=== PATIENT | male | born 1945 | race Caucasian/White ===

== ENCOUNTER 2018-11-01 03:53 | Inpatient (IN) | payer OTHER, BC ==
--- NOTE | 2018-11-01 04:27 | PDOC ---
Attending Attestation - Resident Resident Name: Susan Lang - HPI HPI: 11/12/18 06:19 [facility] from [facility] for one day of increased lethargy. Patient is vent dependent, non verbal and minimally responsive at his baseline. - Physicial Exam PE: 11/12/18 06:20 Agree with resident exam. Patient on vent, unresponsive to sternal rub. CV: tachycardic, no murmurs. Lungs: CTA b/l Abdomen: soft, non distended. 11/12/18 06:21 - Critical Care Time Total Critical Care Time: 30 Critical Care Statement: The care of this patient involved high complexity decision making to prevent further life threatening deterioration of the patient 's condition and/or to evaluate & treat vital organ system(s) failure or risk of failure. - Medical Decision Making 11/12/18 06:22 Pt presents to the ED after sent in from [place] for lethargy. Tachycardic on arrival to the ED with borderline hypotension. Found to be febrile rectally. Labs show severe anemia and leukocytosis. STarted on broad spectrum antibiotics. guiac postiive stool. Type and screen cross for two units ordered. Will admit to medicine for continued management. 11/12/18 06:25
[2018-11-01 05:08] LABS: EOS % 0.1 % (0-4.5); HEMATOCRIT 22.6 % (35.4-49); HEMOGLOBIN 7.1 GM/dL (11.7-16.9); MCH 26.5 pg (25.7-33.7); MCHC 31.5 g/dl (32.0-35.9); MEAN CELL VOLUME 84.2 fl (80-96); MEAN PLT VOLUME 8.4 fl (7.5-11.1); MONO % 2.3 % (3.8-10.2); NEUT % 95.6 % (42.8-82.8); PLATELET COUNT 460 K/MM3 (134-434); RBC 2.69 M/mm3 (4.00-5.60); RDW 19.7 % (11.9-15.9); WHITE BLOOD COUNT 18.7 K/mm3 (4.0-10.0)
[2018-11-01] MEDS ORDERED: PIPERACILLIN/TAZOB 4.5 GM 4.5 GM in DEXTROSE 5%-WATER 100 ML IVPB ONE (05:16)
[2018-11-01] MEDS ORDERED: VANCOMYCIN 1,000 MG in DEXTROSE 5%-WATER - 250 ML IVPB ONE (05:16)
[2018-11-01 05:18] LABS: VENOUS PC02 83.7 mmHg (38-52); VENOUS PH 7.21 (7.32-7.42)
[2018-11-01] MEDS ORDERED: PIPERACILLIN/TAZOB 4.5 GM 4.5 GM/100 ML BAG IVPB ONE (05:23)
[2018-11-01] MEDS ORDERED: VANCOMYCIN 1 GRAM (PRE-DOCKED) 1,000 MG/250 ML BAG IVPB ONE (05:23)
[2018-11-01] MEDS ORDERED: SODIUM CHLORIDE 1,500 ML IV STA (05:29)
[2018-11-01] MEDS ORDERED: ACETAMINOPHEN 1000 MG/100 ML VIAL (NON FORMULARY) IVPB ONE ×2 (05:30→18:26)
[2018-11-01 05:34] LABS: ALBUMIN 1.5 g/dl (3.4-5.0); ALK PHOS 191 U/L (45-117); ANION GAP 5 MMOL/L (8-16); BILIRUBIN,TOTAL 0.3 mg/dL (0.2-1); BLOOD UREA NITROGEN 59 mg/dL (7-18); CALCIUM 8.5 mg/dL (8.5-10.1); CHLORIDE 102 mmol/L (98-107); CO2 33 mmol/L (21-32); CREATININE 0.7 mg/dL (0.55-1.3); GLUCOSE,RANDOM 149 mg/dL (74-106); POTASSIUM 5.3 mmol/L (3.5-5.1); SGOT/AST 115 U/L (15-37); SGPT/ALT 141 U/L (13-61); SODIUM 140 mmol/L (136-145); TOT PROT 6.2 g/dl (6.4-8.2)
[2018-11-01 05:46] LABS: INR 2.03 (0.83-1.09); PROTHROMBIN TIME (PATIENT) 24.1 SEC (9.7-13.0)
[2018-11-01 05:49] LABS: ACTIVATED PTT 30.3 SECONDS (25.2-36.5)
--- NOTE | 2018-11-01 06:06 | PDOC ---
History of Present Illness - General Chief Complaint: Lethargy Stated Complaint: LETHARGY HYPOTENSION Time Seen by Provider: 11/01/18 04:27 - History of Present Illness Initial Comments: 73yo M with PMH of acute respiratory failure w/hypoxia s/p ventilator placement , PEG tube, Afib, anxiety disorder, GERD, Alzheimer's presenting from [facility] with lethargy and hypotension. Patient is nonverbal at baseline. Per [place], he will at most open his eyes to sternal rub. Hypotension of 95/55 noted. Past History - Past Medical History Allergies/Adverse Reactions: Allergies Allergy/AdvReac Type Severity Reaction Status Date / Time No Known Allergies Allergy Verified 11/01/18 04:12 Home Medications: Ambulatory Orders Acetaminophen [Tylenol -] 650 mg GT Q6H PRN 11/01/18 Albuterol 0.083% Nebulizer Lexus [Ventolin 0.083% Nebulizer Soln -] 1 neb NEB Q6H 11/01/18 Amiodarone HCl 200 mg GT DAILY 11/01/18 Apixaban [Eliquis] 5 mg GT BID 11/01/18 Aspirin 81 mg GT DAILY 11/01/18 Atorvastatin Ca [Lipitor] 40 mg GT HS 11/01/18 Butenafine HCl [Lotrimin Ultra] 30 gm TP BID 11/01/18 Butenafine HCl [Lotrimin Ultra] 30 gm TP BID 11/01/18 Clonazepam [Klonopin] 1 mg GT Q6H 11/01/18 Donepezil HCl [Aricept -] 10 mg GT HS 11/01/18 LORazepam [Ativan] 1 mg GT HS 11/01/18 Lansoprazole [Prevacid] 30 mg GT DAILY 11/01/18 Memantine HCl [Namenda -] 10 mg GT BID 11/01/18 Metoprolol Tartrate [Lopressor -] 12.5 mg GT Q12H 11/01/18 Peg 400/Hypromellose/Glycerin [Artificial Tears Drops] 15 ml OP BID 11/01/18 - Suicide/Smoking/Psychosocial Hx Smoking History: Unknown if ever smoked Have you smoked in the past 12 months: No Information on smoking cessation initiated: No Hx Alcohol Use: No Drug/Substance Use Hx: No Review of Systems - Review of Systems Able to Perform ROS?: No (pt nonverbal) *Physical Exam - Vital Signs Last Vital Signs Temp Pulse Resp BP Pulse Ox 98.8 F 85 21 H 101/66 100 11/01/18 03:53 11/01/18 03:53 11/01/18 03:57 11/01/18 03:53 11/01/18 03:53 - Physical Exam Comments: General: Arousable Head: No signs of trauma Eyes: PERRL, sclera anicteric ENT: Dry mucus membranes Neck: Normal ROM, supple Lungs: Lungs clear, on ventilator Cardio: Regular rhythm, S1 and S2 present Abdomen: Soft, nondistended. No visible grimacing upon palpation. PEG tube in place. Extremities: Distal pulses present SKIN: Warm, Dry, normal turgor Neurologic: Patient not following commands. Nonverbal Moderate Sedation - Procedure Monitoring Vital Signs: Procedure Monitoring Vital Signs Temperature 98.8 F 11/01/18 03:53 Pulse Rate 85 11/01/18 03:53 Respiratory Rate 21 H 11/01/18 03:57 Blood Pressure 101/66 11/01/18 03:53 O2 Sat by Pulse Oximetry (%) 100 11/01/18 03:53 ED Treatment Course - LABORATORY CBC & Chemistry Diagram: 11/01/18 04:55 11/01/18 04:55 - ADDITIONAL ORDERS Additional order review: Laboratory Results 11/01/18 11/01/18 11/01/18 04:55 04:55 04:55 PT with INR INR PTT (Actin FS) VBG pH POC VBG pCO2 POC VBG pO2 VBG HCO3 VBG O2 Sat (Libra) VBG Base Excess Sodium 140 Potassium 5.3 H Chloride 102 Carbon Dioxide 33 H Anion Gap 5 L BUN 59 H Creatinine 0.7 Creat Clearance w eGFR > 60 Random Glucose 149 H Lactic Acid 1.6 Calcium 8.5 Total Bilirubin 0.3 AST 115 H ALT 141 H Alkaline Phosphatase 191 H Troponin I < 0.02 Total Protein 6.2 L Albumin 1.5 L 11/01/18 11/01/18 04:55 04:55 PT with INR 24.10 H INR 2.03 H PTT (Actin FS) 30.3 VBG pH 7.21 L* POC VBG pCO2 83.7 H* POC VBG pO2 37.0 VBG HCO3 31.9 L* VBG O2 Sat (Libra) 53.4 H* VBG Base Excess 3.7 H Sodium Potassium Chloride Carbon Dioxide Anion Gap BUN Creatinine Creat Clearance w eGFR Random Glucose Lactic Acid Calcium Total Bilirubin AST ALT Alkaline Phosphatase Troponin I Total Protein Albumin 11/01/18 04:55 RBC 2.69 L MCV 84.2 MCHC 31.5 L RDW 19.7 H MPV 8.4 Neutrophils % 95.6 H Lymphocytes % 2.0 L Monocytes % 2.3 L Eosinophils % 0.1 Basophils % 0.0 Medical Decision Making - Medical Decision Making 73yo M with PMH of acute respiratory failure w/hypoxia s/p ventilator placement , PEG tube, Afib, anxiety disorder, GERD, Alzheimer's presenting from [facility] with lethargy and hypotension. VSS significant for fever and hypotension 1g ofirmev, fluid hydration with 30cc/kg Covering with vanc/zosyn Septic workup 11/01/18 06:35 Leukoctyosis, wbc=18.7 hgb= 7.1 lactate wnl transaminitis AST/ALT 115/141 Tpn negative EKG: rate 97, QTc 419, NSR CXR with left-sided haziness however no other images on record to compare (my impression) FOBT positive TS ordered 2 units PRBC ordered Plan for admission Patient is coming from [facility], paged Dr. Hernandez/Srinivasa service 11/01/18 06:52 Patient signed out to day team. 11/01/18 07:31 *DC/Admit/Observation/Transfer Diagnosis at time of Disposition: Sepsis Qualifiers: Sepsis type: sepsis due to unspecified organism Qualified Code(s): A41.9 - Sepsis, unspecified organism Anemia Qualifiers: Anemia type: unspecified type Qualified Code(s): D64.9 - Anemia, unspecified - Discharge Dispostion Condition at time of disposition: Fair - Referrals - Patient Instructions - Post Discharge Activity
[2018-11-01] MEDS ORDERED: ACETAMINOPHEN INJECTION 100 ML IVPB ONE ×2 (07:08→18:31)
[2018-11-01 07:24] LABS: ANISOCYTOSIS 1+
[2018-11-01 07:25] LABS: PLATELET ESTIMATE SLT INCREASE
[2018-11-01 07:33] LABS: ARTERIAL BLD GAS O2 SATURATION 99.5 % (90-98.9); ARTERIAL BLOOD GAS BASE EXCESS 4.5 meq/l (-2-2); ARTERIAL BLOOD GAS PCO2 59.2 mmHg (35-45); ARTERIAL BLOOD GAS pH 7.33 (7.35-7.45)
[2018-11-01 07:36] LABS: ALLENS TEST POSITIVE
--- NOTE | 2018-11-01 07:40 | PDOC ---
*Physical Exam - Vital Signs Last Vital Signs Temp Pulse Resp BP Pulse Ox 98.8 F 85 21 H 101/66 100 11/01/18 03:53 11/01/18 03:53 11/01/18 03:57 11/01/18 03:53 11/01/18 03:53 ED Treatment Course - LABORATORY CBC & Chemistry Diagram: 11/01/18 04:55 11/01/18 04:55 - ADDITIONAL ORDERS Additional order review: Laboratory Results 11/01/18 11/01/18 11/01/18 07:20 06:42 04:55 PT with INR INR PTT (Actin FS) Anticoagulation Therapy No Result Required. VBG pH POC VBG pCO2 POC VBG pO2 VBG HCO3 VBG O2 Sat (Libra) VBG Base Excess O2 Delivery Device No Result Required. Oxygen Flow Rate No Result Required. Vent Mode No Result Required. Vent Rate No Result Required. Mechanical Rate No Result Required. Pressure Support Vent No Result Required. Sodium Potassium Chloride Carbon Dioxide Anion Gap BUN Creatinine Creat Clearance w eGFR Random Glucose Lactic Acid Calcium Total Bilirubin AST ALT Alkaline Phosphatase Troponin I < 0.02 Total Protein Albumin Stool Occult Blood Positive 11/01/18 11/01/18 11/01/18 04:55 04:55 04:55 PT with INR INR PTT (Actin FS) Anticoagulation Therapy VBG pH 7.21 L* POC VBG pCO2 83.7 H* POC VBG pO2 37.0 VBG HCO3 31.9 L* VBG O2 Sat (Libra) 53.4 H* VBG Base Excess 3.7 H O2 Delivery Device Oxygen Flow Rate Vent Mode Vent Rate Mechanical Rate Pressure Support Vent Sodium 140 Potassium 5.3 H Chloride 102 Carbon Dioxide 33 H Anion Gap 5 L BUN 59 H Creatinine 0.7 Creat Clearance w eGFR > 60 Random Glucose 149 H Lactic Acid 1.6 Calcium 8.5 Total Bilirubin 0.3 AST 115 H ALT 141 H Alkaline Phosphatase 191 H Troponin I Total Protein 6.2 L Albumin 1.5 L Stool Occult Blood 11/01/18 04:55 PT with INR 24.10 H INR 2.03 H PTT (Actin FS) 30.3 Anticoagulation Therapy VBG pH POC VBG pCO2 POC VBG pO2 VBG HCO3 VBG O2 Sat (Libra) VBG Base Excess O2 Delivery Device Oxygen Flow Rate Vent Mode Vent Rate Mechanical Rate Pressure Support Vent Sodium Potassium Chloride Carbon Dioxide Anion Gap BUN Creatinine Creat Clearance w eGFR Random Glucose Lactic Acid Calcium Total Bilirubin AST ALT Alkaline Phosphatase Troponin I Total Protein Albumin Stool Occult Blood 11/01/18 04:55 RBC 2.69 L MCV 84.2 MCHC 31.5 L RDW 19.7 H MPV 8.4 Neutrophils % 95.6 H Lymphocytes % 2.0 L Monocytes % 2.3 L Eosinophils % 0.1 Basophils % 0.0 - Medications Given in the ED: ED Medications Discontinued Medications Generic Name Dose Route Start Last Admin Trade Name Alice PRN Reason Stop Dose Admin Vancomycin HCl 1,000 mg/ 250 mls @ 166.667 mls/hr 11/01/18 05:16 11/01/18 06: 20 Dextrose IVPB 11/01/18 06:45 166.667 mls/hr ONCE ONE Administration Protocol Piperacillin Sod/Tazobactam 100 mls @ 200 mls/hr 11/01/18 05:16 11/01/18 06: 20 Sod 4.5 gm/ Dextrose IVPB 11/01/18 05:45 200 mls/hr ONCE ONE Administration Protocol Medical Decision Making - Medical Decision Making 11/01/18 07:[address] Lang. Maurice Jha is a 73yo with a PMH of hypoxic respiratory failure s/p trach, s /p PEG, a-fib, Alzheimers, anxiety, GERD, minimally responsive at baseline ( opens eyes to sternal rub) who presents from [facility] with increased lethargy, fever, and hypotension. - ED workup notable for labs with WBC 19, normal lactate, hgb 7.1, mildly elevated LFTs, negative trop. Guaiac positive stool. EKG with NSR. Given 30cc/ kg IVF, vanc/zosyn/tamiflu. Protonix drip for GI bleed. - VBG with pH 7.21, CO2 84, bicarb 32, O2 53. ABG pending to adjust vent settings - Dr Bernabe paged at 06:52 for admission, waiting for call back 11/01/18 07:41 - ABG completed. pH 7.33, Os 162, CO2 59, bicarb 30.3 11/01/18 10:16 - Discussed admission with Dr Owen for admission - Call from blood bank; had 2u RBCs ordered for transfusion by overnight team, ready to transfuse Discussed with Dr Magaña. Debby Ernandez PGY1 *DC/Admit/Observation/Transfer Diagnosis at time of Disposition: Sepsis Qualifiers: Sepsis type: sepsis due to unspecified organism Qualified Code(s): A41.9 - Sepsis, unspecified organism Anemia Qualifiers: Anemia type: unspecified type Qualified Code(s): D64.9 - Anemia, unspecified - Discharge Dispostion Condition at time of disposition: Fair Decision to Admit order: Yes - Referrals Referrals: Leroy Schafer MD [Primary Care Provider] - - Patient Instructions - Post Discharge Activity
[2018-11-01] MEDS: PANTOPRAZOLE SODIUM 80 MG in SODIUM CHLORIDE 100 ML IVPB SCH ×3 (09:04→23:03)
[2018-11-01 09:45] LABS: URINE APPEARANCE SLCLOUDY; URINE BILIRUBIN NEGATIVE (<2.0 mg/dL); URINE COLOR YELLOW; URINE GLUCOSE (UA) NEGATIVE (NEGATIVE); URINE KETONE NEGATIVE (NEGATIVE); URINE LEUK ESTERASE NEGATIVE (NEGATIVE); URINE NITRITE NEGATIVE (NEGATIVE); URINE PROTEIN 1+ (NEGATIVE); URINE UROBILINOGEN 4.0 E.U/dl mg/dL (0.2-1.0)
--- NOTE | 2018-11-01 10:32 | EKG ---
Test Reason : Blood Pressure : / mmHG Vent. Rate : 097 BPM Atrial Rate : 097 BPM P-R Int : 158 ms QRS Dur : 086 ms QT Int : 330 ms P-R-T Axes : 013 014 052 degrees QTc Int : 419 ms NORMAL SINUS RHYTHM SEPTAL INFARCT , AGE UNDETERMINED ABNORMAL ECG NO PREVIOUS ECGS AVAILABLE Confirmed by MARILEE STILES MD ([id number]) on 11/01/2018 10:31:34 AM Referred By: Confirmed By:MARILEE STILES MD
[2018-11-01] MEDS ORDERED: ACETAMINOPHEN 650 MG/20.3 ML ORAL SOLUTION (CUPS) PO PRN (10:45)
--- NOTE | 2018-11-01 10:55 | HP ---
Admitting History and Physical - Primary Care Physician PCP: Leroy Schafer - Admission Chief Complaint: sent in for lethargy and hypotension from [facility] History of Present Illness: 73yo M with PMH of acute respiratory failure w/hypoxia s/p ventilator placement , PEG tube, Afib, anxiety disorder, GERD, Alzheimer's presenting from [facility] with lethargy and hypotension. Patient is nonverbal at baseline. Per [place], he will at most open his eyes to sternal rub. 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 Cardiovascular: Yes: AFIB Pulmonary: Yes: Other (resp failure intubated on vent) Gastrointestinal: Yes: GERD - Past Surgical History Additional Past Surgical History: peg and trach in 06/2018 - Advance Directives Advance Directives: Yes: DNR - Smoking History Smoking history: Unknown if ever smoked Have you smoked in the past 12 months: No - Alcohol/Substance Use Hx Alcohol Use: No Home Medications - Allergies Allergies/Adverse Reactions: Allergies Allergy/AdvReac Type Severity Reaction Status Date / Time No Known Allergies Allergy Verified 11/01/18 04:12 - Home Medications Home Medications: Ambulatory Orders Acetaminophen [Tylenol -] 650 mg GT Q6H PRN 11/01/18 Albuterol 0.083% Nebulizer Lexus [Ventolin 0.083% Nebulizer Soln -] 1 neb NEB Q6H 11/01/18 Amiodarone HCl 200 mg GT DAILY 11/01/18 Apixaban [Eliquis] 5 mg GT BID 11/01/18 Aspirin 81 mg GT DAILY 11/01/18 Atorvastatin Ca [Lipitor] 40 mg GT HS 11/01/18 Butenafine HCl [Lotrimin Ultra] 30 gm TP BID 11/01/18 Butenafine HCl [Lotrimin Ultra] 30 gm TP BID 11/01/18 Clonazepam [Klonopin] 1 mg GT Q6H 11/01/18 Donepezil HCl [Aricept -] 10 mg GT HS 11/01/18 LORazepam [Ativan] 1 mg GT HS 11/01/18 Lansoprazole [Prevacid] 30 mg GT DAILY 11/01/18 Memantine HCl [Namenda -] 10 mg GT BID 11/01/18 Metoprolol Tartrate [Lopressor -] 12.5 mg GT Q12H 11/01/18 Peg 400/Hypromellose/Glycerin [Artificial Tears Drops] 15 ml OP BID 11/01/18 Review of Systems Unable to obtain ROS, reason: lethargic unresponsive Physical Examination Vital Signs: Vital Signs Temperature 100.0 F H 11/01/18 07:50 Pulse Rate 86 11/01/18 09:39 Respiratory Rate 21 H 11/01/18 09:54 Blood Pressure 92/60 11/01/18 09:39 O2 Sat by Pulse Oximetry (%) 100 11/01/18 09:39 Constitutional: Yes: Thin Neck: Yes: Other (trach) Cardiovascular: Yes: Regular Rate and Rhythm, S1, S2 Respiratory: Yes: Diminished Gastrointestinal: Yes: Normal Bowel Sounds, Soft, Other ( g tube) Edema: Yes Neurological: Yes: Unresponsive Labs: CBC, BMP 11/01/18 04:55 11/01/18 04:55 Imaging - Results Chest X-ray: Report Reviewed (right upper lobe pna) Problem List - Problems (1) Anemia Assessment/Plan: guaicic positive iv ppi iron panel gi eval transfuse 2 units prbc with lasix in btw repeat cbc after transfusion hold tube feeds Code(s): D64.9 - ANEMIA, UNSPECIFIED Qualifiers: Anemia type: unspecified type Qualified Code(s): D64.9 - Anemia, unspecified (2) Sepsis Assessment/Plan: ivf broad abx ID eval cultures cxr with infiltrate- HCAP- zosyn/vancomycin Code(s): A41.9 - SEPSIS, UNSPECIFIED ORGANISM Qualifiers: Sepsis type: sepsis due to unspecified organism Qualified Code(s): A41.9 - Sepsis, unspecified organism (3) Abnormal LFTs Assessment/Plan: maybe secondary to hypotension check liver sono ivf Code(s): R94.5 - ABNORMAL RESULTS OF LIVER FUNCTION STUDIES (4) Afib Assessment/Plan: hold eliquis given guacic ppositive stool Code(s): I48.91 - UNSPECIFIED ATRIAL FIBRILLATION
[2018-11-01 12:39] LABS: BASO % 0.1 % (0-2.0); EOS % 0.4 % (0-4.5); HEMATOCRIT 20.5 % (35.4-49); LYMPH % 2.6 % (8-40); MCH 26.3 pg (25.7-33.7); MCHC 31.2 g/dl (32.0-35.9); MEAN CELL VOLUME 84.4 fl (80-96); MEAN PLT VOLUME 8.3 fl (7.5-11.1); MONO % 3.3 % (3.8-10.2); NEUT % 93.6 % (42.8-82.8); PLATELET COUNT 389 K/MM3 (134-434); RBC 2.43 M/mm3 (4.00-5.60); RDW 19.8 % (11.9-15.9); WHITE BLOOD COUNT 14.6 K/mm3 (4.0-10.0)
[2018-11-01 12:46] LABS: HEMOGLOBIN 6.4 GM/dL (11.7-16.9)
[2018-11-01 13:05] LABS: ALBUMIN 1.3 g/dl (3.4-5.0); ALK PHOS 161 U/L (45-117); ANION GAP 4 MMOL/L (8-16); BILIRUBIN,TOTAL 0.3 mg/dL (0.2-1); BLOOD UREA NITROGEN 58 mg/dL (7-18); CALCIUM 7.8 mg/dL (8.5-10.1); CHLORIDE 107 mmol/L (98-107); CO2 31 mmol/L (21-32); CREATININE 0.6 mg/dL (0.55-1.3); GLUCOSE,RANDOM 112 mg/dL (74-106); POTASSIUM 5.2 mmol/L (3.5-5.1); SGOT/AST 80 U/L (15-37); SGPT/ALT 114 U/L (13-61); SODIUM 141 mmol/L (136-145); TOT PROT 5.3 g/dl (6.4-8.2)
[2018-11-01 13:26] LABS: AMORP URATES 2+ /hpf (NONE SEEN); EPI CELLS NONE SEEN /HPF (FEW)
--- NOTE | 2018-11-01 13:35 | CON.PULM ---
Consult Consult Specialty:: PULMONARY Referred by:: Dr Tripathi Reason for Consultation:: respiratory failure - History of Present Illness Chief Complaint: hypoxia History of Present Illness: 73yo male with h/o atrial fibrillation, chronic respiratory failure s/p tracheostomy/PEG placement, Alzheimer's dementia, GERD who was sent from the [facility] for lethargy and hypotension. Pt unable to provide further history at this time. Noted to be hypoxic on 40% FiO2 and hypotensive. CXR showing bilateral infiltrates, started on IVF and antibiotics for presumed pneumonia. Now on 100% FiO2 on volume assist control. 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 Cardio/Vascular: Yes: AFIB Pulmonary: Yes: Other (resp failure intubated on vent) Gastrointestinal: Yes: GERD - Alcohol/Substance Use Hx Alcohol Use: No - Smoking History Smoking history: Unknown if ever smoked Have you smoked in the past 12 months: No Home Medications - Allergies Allergies/Adverse Reactions: Allergies Allergy/AdvReac Type Severity Reaction Status Date / Time No Known Allergies Allergy Verified 11/01/18 04:12 - Home Medications Home Medications: Ambulatory Orders Acetaminophen [Tylenol -] 650 mg GT Q6H PRN 11/01/18 Albuterol 0.083% Nebulizer Lexus [Ventolin 0.083% Nebulizer Soln -] 1 neb NEB Q6H 11/01/18 Amiodarone HCl 200 mg GT DAILY 11/01/18 Apixaban [Eliquis] 5 mg GT BID 11/01/18 Aspirin 81 mg GT DAILY 11/01/18 Atorvastatin Ca [Lipitor] 40 mg GT HS 11/01/18 Butenafine HCl [Lotrimin Ultra] 30 gm TP BID 11/01/18 Butenafine HCl [Lotrimin Ultra] 30 gm TP BID 11/01/18 Clonazepam [Klonopin] 1 mg GT Q6H 11/01/18 Donepezil HCl [Aricept -] 10 mg GT HS 11/01/18 LORazepam [Ativan] 1 mg GT HS 11/01/18 Lansoprazole [Prevacid] 30 mg GT DAILY 11/01/18 Memantine HCl [Namenda -] 10 mg GT BID 11/01/18 Metoprolol Tartrate [Lopressor -] 12.5 mg GT Q12H 11/01/18 Peg 400/Hypromellose/Glycerin [Artificial Tears Drops] 15 ml OP BID 11/01/18 Review of Systems Unable to obtain ROS, reason: pt nonverbal Physical Exam Vital Sings: Vital Signs Temperature 100.0 F H 11/01/18 07:50 Pulse Rate 86 11/01/18 09:39 Respiratory Rate 21 H 11/01/18 09:54 Blood Pressure 92/60 11/01/18 09:39 O2 Sat by Pulse Oximetry (%) 100 11/01/18 09:39 Constitutional: Yes: Cachectic, Moderate Distress Eyes: Yes: Conjunctiva Clear HENT: Yes: Atraumatic, Normocephalic Neck: Yes: Supple, Trachea Midline Cardiovascular: Yes: Pulse Irregular Respiratory: Yes: Rhonchi (bilateral) ...Clubbing: No Gastrointestinal: Yes: Normal Bowel Sounds, Soft. No: Tenderness Edema: No Labs: CBC, BMP 11/01/18 12:05 11/01/18 12:05 ABG Results ABG pH 7.33 (7.35-7.45) L 11/01/18 07:20 ABG pCO2 at Pt Temp 59.2 mmHg (35-45) H 11/01/18 07:20 ABG pO2 at Pt Temp 162.0 mmHg (70-100) H* 11/01/18 07:20 ABG HCO3 30.3 meq/L (22-26) H 11/01/18 07:20 ABG O2 Sat (Measured) 99.5 % (90-98.9) H 11/01/18 07:20 ABG O2 Content 9.1 % vol (15-22) L* 11/01/18 07:20 ABG Base Excess 4.5 meq/l (-2-2) H 11/01/18 07:20 Imaging - Results Chest X-ray: Report Reviewed, Image Reviewed (bilateral infiltrates) Problem List - Problems (1) Acute and chronic respiratory failure with hypoxia Code(s): J96.21 - ACUTE AND CHRONIC RESPIRATORY FAILURE WITH HYPOXIA (2) Pneumonia Code(s): J18.9 - PNEUMONIA, UNSPECIFIED ORGANISM Assessment/Plan Acute on Chronic Hypoxic and Hypercapneic Respiratory Failure Multilobar Pneumonia Sepsis Elevated LFTs Atrial Fibrillation Anemia r/o GI Bleed Dementia Failure to Thrive - IV antibiotics to cover health care acquired organisms - f/u cultures - inhaled bronchodilators - O2 to keep SpO2 >90% - transfuse PRBC - monitor H/H - protonix - IVF - GI eval - rate control - hold anticoagulation for now - continue volume assist control - DVT/GI prophylaxis - prognosis guarded Thank you for this consult Mihir Alonzo MD
--- NOTE | 2018-11-01 14:22 | PN ---
Progress Note (short form) - Note Progress Note: ID consult dictated imp/reccd 73 yo man with chronic resp failure worsening hypoxia multilobar pneumonia abnormal LFTs anemia dementia continue vanco/zosyn sputum culture urinary antigens f/u cultures GI consult for anemia overall prognosis is guarded Problem List - Problems (1) Acute and chronic respiratory failure with hypoxia Code(s): J96.21 - ACUTE AND CHRONIC RESPIRATORY FAILURE WITH HYPOXIA (2) Pneumonia Code(s): J18.9 - PNEUMONIA, UNSPECIFIED ORGANISM (3) Anemia Code(s): D64.9 - ANEMIA, UNSPECIFIED Qualifiers: Anemia type: unspecified type Qualified Code(s): D64.9 - Anemia, unspecified (4) Abnormal LFTs Code(s): R94.5 - ABNORMAL RESULTS OF LIVER FUNCTION STUDIES
[2018-11-01] MEDS ORDERED: ALBUTEROL SO4 2.5/IPRATROPIUM 0.5 INH SOL 3 ML VIAL.NEB. NEB ONE (15:57)
[2018-11-01] MEDS: ALBUTEROL SO4 2.5/IPRATROPIUM 0.5 INH SOL 3 ML VIAL.NEB. NEB SCH ×2 (16:00→21:30)
--- NOTE | 2018-11-01 18:01 | CONS ---
DATE OF CONSULTATION: DATE OF DICTATION: 11/01/2018 INFECTIOUS DISEASE CONSULTATION REQUESTING PHYSICIAN: The hospitalist CONSULTING PHYSICIAN: Jj Joy M.D. HISTORY OF PRESENT ILLNESS: This is a 73-year-old man with a history of chronic respiratory failure. He has a tracheostomy and was on a ventilator and chronic PEG tube, atrial fibrillation, and dementia, who presents from the shelter with lethargy and hypotension. In the emergency room, he was noted to have a low- grade fever, to have an elevated white count, and to be hypoxic. He had a chest x- ray done that revealed a right upper lobe infiltrate and a possible left basilar infiltrate with an accompanying effusion. He had cultures done and was started on broad-spectrum antibiotics, vancomycin, and piperacillin/tazobactam for presumed pneumonia. His history is entirely from the chart, as he is not verbal. He is apparently at baseline nonverbal, and apparently he is able to open his eyes to sternal rub, but otherwise he is not interactive. PAST MEDICAL HISTORY: Notable for dementia, Alzheimer dementia, atrial fibrillation, chronic respiratory failure with hypoxia, tracheostomized on the vent, history of GERD. SOCIAL HISTORY: Notable for G-tube and tracheostomy in June of 2018. ALLERGIES: No known drug allergies. MEDICATION: At the shelter include acetaminophen, Ventolin, nebulizer treatment, amiodarone, apixaban, aspirin, atorvastatin, Lotrimin cream, clonazepam, Aricept, Ativan, Prevacid, Namenda, Lopressor, and artificial tears. REVIEW OF SYSTEMS: Not obtainable. SOCIAL HISTORY: He resides at the shelter. Further history is not obtainable. PHYSICAL EXAMINATION: GENERAL: He is resting comfortably on the vent. VITAL SIGNS: T-max is 100, pulse is 86, blood pressure 92/60, respiratory rate 20. He is saturating 100% on 100% FiO2. HEENT: Normocephalic. Eyes are anicteric. He is tracheostomized. He is unresponsive, and not following any commands. LUNGS: Diminished breath sounds at the bases. HEART: Regular rate and rhythm. ABDOMEN: Soft. His G-tube site is clean. EXTREMITIES: Without edema. LABORATORY: Labs on admission, white count 18.7, hemoglobin 7.1, platelets 460 this morning, white count 14.6 from earlier this morning with a hemoglobin of 6.4 and platelets at 389. INR is 2. His BUN and creatinine are 58 and 0.6. Liver function tests are elevated with an AST of 115, ALT of 141, and alkaline phosphatase of 191. Urinalysis is leukocyte esterase negative, with 1-3 white cells. The stool occult blood is positive. Blood and urine cultures are pending. Chest x-ray as stated before shows a right upper lobe infiltrate with a left pleural effusion and left basilar infiltrate. IMPRESSION: 1. In summary, this is an elderly man aged 73 admitted from the shelter, he has a history of dementia and chronic respiratory failure. He is on the ventilator tracheostomy with acute episode of lethargy and hypotension. Chest x-ray consistent with pneumonia. Would suggest at this time we obtain blood cultures, have been sent. Would get a sputum culture, legionella urinary antigen. Would continue his vancomycin and Zosyn pending further culture results. 2. Acute on chronic respiratory failure. 3. Elevated liver function tests, would agree with ultrasound. 4. History of atrial fibrillation. 5. Anemia, unknown if this is old or new. Workup is in progress. 6. History of dementia with a poor baseline mental status. Further recommendations to follow. Would continue the vancomycin and Zosyn for now. JJ JOY M.D. [id number] MTDD
--- NOTE | 2018-11-01 18:06 | CON.GI ---
Consult Consult Specialty:: GI Referred by:: Dr Hernandez - History of Present Illness History of Present Illness: 73 y/o M from [facility] with history of Respiratory failure, Afib ( on Aspirin and Eliquis)was transferred from [place] because of hypotnesion and change in mental status. He was noted to have leukocytosis and a hemoglobin of 6. He is guaiac positive. There were no reports of melena and rectal bleeding. - Past Medical History DIRECTOR OF OPERATIONS: Yes: Alzheimer's Cardio/Vascular: Yes: AFIB Pulmonary: Yes: Other (resp failure intubated on vent) Gastrointestinal: Yes: GERD - Alcohol/Substance Use Hx Alcohol Use: No - Smoking History Smoking history: Unknown if ever smoked Have you smoked in the past 12 months: No Home Medications - Allergies Allergies/Adverse Reactions: Allergies Allergy/AdvReac Type Severity Reaction Status Date / Time No Known Allergies Allergy Verified 11/01/18 04:12 - Home Medications Home Medications: Ambulatory Orders Acetaminophen [Tylenol -] 650 mg GT Q6H PRN 11/01/18 Albuterol 0.083% Nebulizer Lexus [Ventolin 0.083% Nebulizer Soln -] 1 neb NEB Q6H 11/01/18 Amiodarone HCl 200 mg GT DAILY 11/01/18 Apixaban [Eliquis] 5 mg GT BID 11/01/18 Aspirin 81 mg GT DAILY 11/01/18 Atorvastatin Ca [Lipitor] 40 mg GT HS 11/01/18 Butenafine HCl [Lotrimin Ultra] 30 gm TP BID 11/01/18 Butenafine HCl [Lotrimin Ultra] 30 gm TP BID 11/01/18 Clonazepam [Klonopin] 1 mg GT Q6H 11/01/18 Donepezil HCl [Aricept -] 10 mg GT HS 11/01/18 LORazepam [Ativan] 1 mg GT HS 11/01/18 Lansoprazole [Prevacid] 30 mg GT DAILY 11/01/18 Memantine HCl [Namenda -] 10 mg GT BID 11/01/18 Metoprolol Tartrate [Lopressor -] 12.5 mg GT Q12H 11/01/18 Peg 400/Hypromellose/Glycerin [Artificial Tears Drops] 15 ml OP BID 11/01/18 Physical Exam-GI Vital Signs: Vital Signs Temperature 102 F H 11/01/18 17:26 Pulse Rate 93 H 11/01/18 17:26 Respiratory Rate 20 11/01/18 17:26 Blood Pressure 102/63 11/01/18 17:26 O2 Sat by Pulse Oximetry (%) 100 11/01/18 17:26 Constitutional: Yes: Well Nourished Eyes: Yes: Conjunctiva Clear, Occular Prosthesis Neck: Yes: Supple Respiratory: Yes: Rhonchi Gastrointestinal Inspection: Yes: Other (g-tube in place) ...Palpate: Yes: Soft. No: Firm/Rigid, Guarding, Hepatomegaly, Mass, Pulsatile Mass, Splenomegaly Neurological: Yes: Other (obtunded). No: Alert, Oriented Labs: CBC, BMP 11/01/18 12:05 11/01/18 12:05 INR, PTT INR 2.03 (0.83-1.09) H 11/01/18 04:55 Home Medications Medication Instructions Recorded Acetaminophen [Tylenol -] 650 mg GT Q6H PRN 11/01/18 Albuterol 0.083% Nebulizer Lexus 1 neb NEB Q6H 11/01/18 [Ventolin 0.083% Nebulizer Soln -] Amiodarone HCl 200 mg GT DAILY 11/01/18 Apixaban [Eliquis] 5 mg GT BID 11/01/18 Aspirin 81 mg GT DAILY 11/01/18 Atorvastatin Ca [Lipitor] 40 mg GT HS 11/01/18 Butenafine HCl [Lotrimin Ultra] 30 gm TP BID 11/01/18 Butenafine HCl [Lotrimin Ultra] 30 gm TP BID 11/01/18 Clonazepam [Klonopin] 1 mg GT Q6H 11/01/18 Donepezil HCl [Aricept -] 10 mg GT HS 11/01/18 LORazepam [Ativan] 1 mg GT HS 11/01/18 Lansoprazole [Prevacid] 30 mg GT DAILY 11/01/18 Memantine HCl [Namenda -] 10 mg GT BID 11/01/18 Metoprolol Tartrate [Lopressor -] 12.5 mg GT Q12H 11/01/18 Peg 400/Hypromellose/Glycerin 15 ml OP BID 11/01/18 [Artificial Tears Drops] Current Medications Generic Name Dose Route Start Last Admin Trade Name Freq PRN Reason Stop Dose Admin Albuterol/Ipratropium 1 amp 11/01/18 16:00 11/01/18 16:00 Duoneb - NEB 1 amp RQID FLORY Administration Pantoprazole Sodium 80 mg/ 100 mls @ 10 mls/hr 11/01/18 07:00 11/01/18 17:11 Sodium Chloride IVPB 10 mls/hr Q10H FLORY Administration 8 MG/HR Piperacillin Sod/Tazobactam 50 mls @ 100 mls/hr 11/01/18 18:00 Sod 3.375 gm/ Dextrose IVPB Q8H-IV FLORY Protocol Vancomycin HCl 1,000 mg/ 250 mls @ 200 mls/hr 11/02/18 10:00 Dextrose IVPB Q24H FLORY Protocol Hepatic Panel Total Bilirubin 0.3 mg/dL (0.2-1) 11/01/18 12:05 AST 80 U/L (15-37) H 11/01/18 12:05 ALT 114 U/L (13-61) H 11/01/18 12:05 Alkaline Phosphatase 161 U/L (45-117) H 11/01/18 12:05 Albumin 1.3 g/dl (3.4-5.0) L 11/01/18 12:05 Problem List - Problems (1) Anemia Code(s): D64.9 - ANEMIA, UNSPECIFIED Qualifiers: Anemia type: unspecified type Qualified Code(s): D64.9 - Anemia, unspecified (2) Elevated liver enzymes Assessment/Plan: multifactorial including secondary to medication( lipitor and Amiodarone ) R> keep well hydrated repeat LFTS in 48 hours Code(s): R74.8 - ABNORMAL LEVELS OF OTHER SERUM ENZYMES (3) Anemia Assessment/Plan: , occult gi bleeding R> keep HGB greater than 8 continue PPI poor candidate for any GI intervention at this time continu supportive care Code(s): D64.9 - ANEMIA, UNSPECIFIED
[2018-11-01] MEDS ORDERED: PIPERACILLIN/TAZOB 3.375 GM 3.375 GM/50 ML BAG IVPB ONE (18:52)
[2018-11-01] MEDS: PIPERACILLIN/TAZOB 3.375 GM 3.375 GM in DEXTROSE 5%-WATER - 50 ML IVPB SCH (18:54)
[2018-11-01 20:43] LABS: PLATELET ESTIMATE ADEQUATE
[2018-11-01 20:44] LABS: ANISOCYTOSIS 1+
[2018-11-02 00:12] LABS: HEMATOCRIT 26.4 % (35.4-49); HEMOGLOBIN 8.8 GM/dL (11.7-16.9); MCH 28.7 pg (25.7-33.7); MCHC 33.4 g/dl (32.0-35.9); MEAN PLT VOLUME 8.3 fl (7.5-11.1); PLATELET COUNT 354 K/MM3 (134-434); RBC 3.07 M/mm3 (4.00-5.60); RDW 17.7 % (11.9-15.9); WHITE BLOOD COUNT 15.4 K/mm3 (4.0-10.0)
[2018-11-02] MEDS ORDERED: PIPERACILLIN/TAZOBACTAM 3.375 GM VIAL IVPB ONE ×2 (00:51→10:27)
[2018-11-02] MEDS ORDERED: DEXTROSE 5%-WATER - 50 ML IVPB ONE ×2 (00:51→10:27)
[2018-11-02] MEDS: PIPERACILLIN/TAZOB 3.375 GM 3.375 GM in DEXTROSE 5%-WATER - 50 ML IVPB SCH ×2 (01:40→10:36)
[2018-11-02] MEDS: PANTOPRAZOLE SODIUM 80 MG in SODIUM CHLORIDE 100 ML IVPB SCH ×3 (07:05→23:11)
[2018-11-02 07:51] LABS: HEMATOCRIT 24.6 % (35.4-49); HEMOGLOBIN 8.2 GM/dL (11.7-16.9); MCH 28.2 pg (25.7-33.7); MCHC 33.4 g/dl (32.0-35.9); MEAN CELL VOLUME 84.6 fl (80-96); MEAN PLT VOLUME 8.6 fl (7.5-11.1); PLATELET COUNT 353 K/MM3 (134-434); RDW 17.7 % (11.9-15.9); WHITE BLOOD COUNT 15.4 K/mm3 (4.0-10.0)
--- NOTE | 2018-11-02 07:52 | PN ---
GI Progress Note Subjective: Patient examined lying in bed. Patient is non-verbal and ventilator dependent. As per RN no reports of BM during the night, rectal bleeding, nausea, vomiting. Patient labs show improved Hg from 6.4 to 8.8 s/p 2U PRBC transfusion. LFTs improving showing downtrend with current AST 80, ALT 114, Alk Phos 161. - Objective Vital Signs: Vital Signs Temperature 100.7 F H 11/02/18 06:00 Pulse Rate 107 H 11/02/18 06:00 Respiratory Rate 24 H 11/02/18 06:14 Blood Pressure 101/46 L 11/02/18 06:00 O2 Sat by Pulse Oximetry (%) 99 11/01/18 21:00 Constitutional: Mild Distress Eyes: Yes: Conjunctiva Clear HENT: Yes: Atraumatic Cardiovascular: Yes: Tachycardia Respiratory: Yes: Mechanically Ventilated, Rhonchi Gastrointestinal Inspection: Yes: Other (PEG tube). No: WNL, Ascites, Distention, Hernia, Scars ...Auscultate: Yes: Normoactive Bowel Sounds. No: Hyperactive Bowel Sounds, Hypoactive Bowel Sounds, No Bowel Sounds, Other ...Palpate: Yes: Soft. No: Firm/Rigid, Guarding, Hepatomegaly, Mass, Pulsatile Mass, Splenomegaly, Tenderness, Tenderness, Epigastium, Tenderness, Rebound, Other ...Percussion: Yes: Tympanitic. No: Dullness, Fluid Wave, Other Genitourinary: Yes: Krishnamurthy Present Neurological: Yes: Pre-Existing Deficit Labs: INR, PTT INR 2.03 (0.83-1.09) H 11/01/18 04:55 Microbiology 11/01/18 04:55 Blood Culture - Preliminary Blood - Peripheral Venous NO GROWTH OBTAINED AFTER 24 HOURS, INCUBATION TO CONTINUE FOR 4 DAYS. 11/01/18 04:55 Blood Culture - Preliminary Blood - Peripheral Venous NO GROWTH OBTAINED AFTER 24 HOURS, INCUBATION TO CONTINUE FOR 4 DAYS Active Medications Generic Name Dose Route Start Last Admin Trade Name Freq PRN Reason Stop Dose Admin Albuterol/Ipratropium 1 amp 11/01/18 16:00 11/01/18 21:30 Duoneb - NEB 1 amp RQID FLORY Administration Pantoprazole Sodium 80 mg/ 100 mls @ 10 mls/hr 11/01/18 07:00 11/02/18 07:05 Sodium Chloride IVPB Not Given Q10H FLORY 8 MG/HR Piperacillin Sod/Tazobactam 50 mls @ 100 mls/hr 11/01/18 18:00 11/02/18 01:40 Sod 3.375 gm/ Dextrose IVPB 100 mls/hr Q8H-IV FLORY Administration Protocol Vancomycin HCl 1,000 mg/ 250 mls @ 200 mls/hr 11/02/18 10:00 Dextrose IVPB Q24H FLORY Protocol Problem List - Problems (1) Anemia Assessment/Plan: R>daily monitoring of Hg >transfuse when Hg <8.0 >continue with PPI >stool OB positive--poor candidate for GI intervention at present Code(s): D64.9 - ANEMIA, UNSPECIFIED Qualifiers: Anemia type: unspecified type Qualified Code(s): D64.9 - Anemia, unspecified (2) Elevated liver enzymes Assessment/Plan: multifactorial including secondary to medication( lipitor and Amiodarone ) R> keep well hydrated LFTs showing downtrend, continue to monitor Code(s): R74.8 - ABNORMAL LEVELS OF OTHER SERUM ENZYMES (3) Anemia Assessment/Plan: , occult gi bleeding R>monitor Hg and transfuse if Hg <8.0 continue PPI poor candidate for any GI intervention at this time continue supportive care Code(s): D64.9 - ANEMIA, UNSPECIFIED
[2018-11-02 08:18] LABS: ALBUMIN 1.3 g/dl (3.4-5.0); ALK PHOS 140 U/L (45-117); ANION GAP 5 MMOL/L (8-16); BILIRUBIN,TOTAL 0.5 mg/dL (0.2-1); BLOOD UREA NITROGEN 55 mg/dL (7-18); CALCIUM 7.7 mg/dL (8.5-10.1); CHLORIDE 109 mmol/L (98-107); CO2 29 mmol/L (21-32); CREATININE 0.6 mg/dL (0.55-1.3); GLUCOSE,RANDOM 67 mg/dL (74-106); MAGNESIUM 2.7 mg/dL (1.8-2.4); PHOSPHOROUS 3.5 mg/dL (2.5-4.9); POTASSIUM 5.1 mmol/L (3.5-5.1); SGOT/AST 77 U/L (15-37); SGPT/ALT 108 U/L (13-61); SODIUM 143 mmol/L (136-145); TOT PROT 5.4 g/dl (6.4-8.2)
[2018-11-02] MEDS: ALBUTEROL SO4 2.5/IPRATROPIUM 0.5 INH SOL 3 ML VIAL.NEB. NEB SCH ×4 (08:51→20:02)
[2018-11-02 09:37] LABS: CHOLESTEROL 72 mg/dL (50-200); HDL CHOLESTEROL 15 mg/dL (40-60); TRIGLYCERIDES 83 mg/dL (0-150)
[2018-11-02] MEDS ORDERED: VANCOMYCIN 1,000 MG in DEXTROSE 5%-WATER - 250 ML IVPB SCH (10:00)
--- NOTE | 2018-11-02 10:59 | PN ---
Progress Note (short form) - Note Progress Note: PULMONARY Vented on volume assist control. Low grade fever today. Saturating well on 80% FiO2. Vital Signs Period Temp Pulse Resp BP Sys/Jesus Pulse Ox Last 24 Hr 98 F-102 F 82-107 20-24 86-107/45-63 99-100 Gen: vented, mildly tachypneic, cachectic Heart: RRR Lung: scattered rhonchi Abd: soft, nontender Ext: no edema CBC, BMP 11/02/18 05:40 11/02/18 05:40 Active Medications Albuterol/Ipratropium (Duoneb -) 1 amp NEB RQID FLORY Last Admin: 11/02/18 08:51 Dose: 1 amp Pantoprazole Sodium 80 mg/ (Sodium Chloride) 100 mls @ 10 mls/hr IVPB Q10H FLORY Last Admin: 11/02/18 07:05 Dose: Not Given Piperacillin Sod/Tazobactam (Sod 3.375 gm/ Dextrose) 50 mls @ 100 mls/hr IVPB Q8H-IV FLORY; Protocol Last Admin: 11/02/18 10:36 Dose: 100 mls/hr Vancomycin HCl 1,000 mg/ (Dextrose) 250 mls @ 200 mls/hr IVPB Q24H FLORY; Protocol A/P Acute on Chronic Hypoxic and Hypercapneic Respiratory Failure Multilobar Pneumonia Sepsis Elevated LFTs Atrial Fibrillation Anemia r/o GI Bleed Dementia Failure to Thrive - continue antibiotics per ID - f/u cultures - inhaled bronchodilators - taper O2 to keep SpO2 >90% - monitor H/H - protonix - rate control - hold anticoagulation for now - continue volume assist control - DVT/GI prophylaxis Problem List - Problems (1) Acute and chronic respiratory failure with hypoxia Code(s): J96.21 - ACUTE AND CHRONIC RESPIRATORY FAILURE WITH HYPOXIA (2) Pneumonia Code(s): J18.9 - PNEUMONIA, UNSPECIFIED ORGANISM
[2018-11-02] MEDS: ACETAMINOPHEN 1000 MG/100 ML VIAL (NON FORMULARY) IVPB PRN (12:09)
[2018-11-02] MEDS ORDERED: AZITHROMYCIN IVPB 500 MG/250 ML BAG IVPB ONE (14:58)
[2018-11-02] MEDS ORDERED: ALBUTEROL SO4 0.083% IH SOL 2.5 MG/3 ML VIAL.NEB. NEB PRN (14:59)
--- NOTE | 2018-11-02 15:06 | PN ---
Progress Note (short form) - Note Progress Note: remains febrile today on vancomycin and zosyn +copious secretions trach to vent lethargic Vital Signs Period Temp Pulse Resp BP Sys/Jesus Pulse Ox Last 24 Hr 98 F-102.3 F 82-116 17-24 86-107/45-63 99-100 cor-rrr lungs decreased bs at bases abd soft,nt+GT ext no edema CBC, BMP 11/02/18 05:40 11/02/18 05:40 Microbiology 11/01/18 07:54 Urine - Urine Krishnamurthy Urine Culture - Final NO GROWTH OBTAINED 11/01/18 04:55 Blood - Peripheral Venous Blood Culture - Preliminary NO GROWTH OBTAINED AFTER 24 HOURS, INCUBATION TO CONTINUE FOR 4 DAYS. 11/01/18 04:55 Blood - Peripheral Venous Blood Culture - Preliminary NO GROWTH OBTAINED AFTER 24 HOURS, INCUBATION TO CONTINUE FOR 4 DAYS. a/p fevers multilobar pneumonia continue vanco/zosyn add zithromax until legionella antigen is back sputum culture urinary antigens influenza screen abnl lfts- sono no stones, normal GB wall f/u cultures overall prognosis is guarded d/w hospitalist Problem List - Problems (1) Acute and chronic respiratory failure with hypoxia Code(s): J96.21 - ACUTE AND CHRONIC RESPIRATORY FAILURE WITH HYPOXIA (2) Pneumonia Code(s): J18.9 - PNEUMONIA, UNSPECIFIED ORGANISM (3) Anemia Code(s): D64.9 - ANEMIA, UNSPECIFIED Qualifiers: Anemia type: unspecified type Qualified Code(s): D64.9 - Anemia, unspecified (4) Abnormal LFTs Code(s): R94.5 - ABNORMAL RESULTS OF LIVER FUNCTION STUDIES
--- NOTE | 2018-11-02 15:07 | PN ---
Progress Note, Physician Chief Complaint: Hypotension Anemia Sepsis History of Present Illness: Previous notes and events reviewed awake and alert Temp 102.3F--received tylenol 650mg IVPB, repeat temp 101.3F tachycardic non-verbal, mechanically ventilated - Current Medication List Current Medications: Active Medications Acetaminophen (Ofirmev Injection -) 1,000 mg IVPB Q6H PRN PRN Reason: FEVER Last Admin: 11/02/18 12:09 Dose: 1,000 mg Albuterol Sulfate (Ventolin 0.083% Nebulizer Soln -) 1 amp NEB Q6H PRN PRN Reason: SHORT OF BREATH/WHEEZING Albuterol/Ipratropium (Duoneb -) 1 amp NEB RQID FLORY Last Admin: 11/02/18 11:13 Dose: 1 amp Atorvastatin Calcium (Lipitor -) 40 mg GT HS FLORY Pantoprazole Sodium 80 mg/ (Sodium Chloride) 100 mls @ 10 mls/hr IVPB Q10H FLORY Last Admin: 11/02/18 07:05 Dose: Not Given Piperacillin Sod/Tazobactam (Sod 3.375 gm/ Dextrose) 50 mls @ 100 mls/hr IVPB Q8H-IV FLORY; Protocol Last Admin: 11/02/18 10:36 Dose: 100 mls/hr Vancomycin HCl 1,000 mg/ (Dextrose) 250 mls @ 200 mls/hr IVPB Q24H FLORY; Protocol Azithromycin 500 mg/ Dextrose 250 mls @ 250 mls/hr IVPB ONCE ONE Stop: 11/02/18 15:57 Memantine (Namenda -) 10 mg GT BID FLORY Metoprolol Tartrate (Lopressor -) 12.5 mg GT BID [facility] - Objective Vital Signs: Vital Signs Temperature 101.8 F H 11/02/18 14:56 Pulse Rate 116 H 11/02/18 14:56 Respiratory Rate 18 11/02/18 14:56 Blood Pressure 105/62 11/02/18 14:56 O2 Sat by Pulse Oximetry (%) 99 11/01/18 21:00 Constitutional: Yes: Cachectic, Mild Distress Eyes: Yes: Conjunctiva Clear HENT: Yes: Atraumatic Neck: Yes: Other (trach) Cardiovascular: Yes: Tachycardia Respiratory: Yes: Mechanically Ventilated, Rhonchi Gastrointestinal: Yes: Normal Bowel Sounds, Soft, Other (PEG tube non tender) Musculoskeletal: Yes: Muscle Weakness Extremities: Yes: WNL Edema: Yes Edema: LUE: 1+, RUE: 1+ Peripheral Pulses WNL: Yes Neurological: Yes: Pre-Existing Deficit Labs: CBC, BMP 11/02/18 05:40 11/02/18 05:40 INR, PTT INR 2.03 (0.83-1.09) H 11/01/18 04:55 Microbiology 11/01/18 07:54 Urine - Urine Krishnamurthy Urine Culture - Final NO GROWTH OBTAINED 11/01/18 04:55 Blood - Peripheral Venous Blood Culture - Preliminary NO GROWTH OBTAINED AFTER 24 HOURS, INCUBATION TO CONTINUE FOR 4 DAYS. 11/01/18 04:55 Blood - Peripheral Venous Blood Culture - Preliminary NO GROWTH OBTAINED AFTER 24 HOURS, INCUBATION TO CONTINUE FOR 4 DAYS. <Tamela Samuel - Last Filed: 11/02/18 15:22> - Current Medication List Current Medications: Active Medications Acetaminophen (Ofirmev Injection -) 1,000 mg IVPB Q6H PRN PRN Reason: FEVER Last Admin: 11/02/18 12:09 Dose: 1,000 mg Albuterol Sulfate (Ventolin 0.083% Nebulizer Soln -) 1 amp NEB Q6H PRN PRN Reason: SHORT OF BREATH/WHEEZING Albuterol/Ipratropium (Duoneb -) 1 amp NEB RQID FLORY Last Admin: 11/02/18 16:18 Dose: 1 amp Atorvastatin Calcium (Lipitor -) 40 mg GT HS FLORY Pantoprazole Sodium 80 mg/ (Sodium Chloride) 100 mls @ 10 mls/hr IVPB Q10H FLORY Last Admin: 11/02/18 13:00 Dose: 10 mls/hr Vancomycin HCl (Vancomycin (Pre-Docked)) 1,000 mg in 250 mls @ 166.667 mls/hr IVPB Q24H FLORY; Protocol Last Admin: 11/02/18 15:40 Dose: 166.667 mls/hr Piperacillin Sod/Tazobactam (Sod 4.5 gm/ Dextrose) 100 mls @ 200 mls/hr IVPB Q8H-IV FLORY; Protocol Memantine (Namenda -) 10 mg GT BID FLORY Metoprolol Tartrate (Lopressor -) 12.5 mg GT BID FLORY - Objective Vital Signs: Vital Signs Temperature 99.6 F 11/02/18 16:51 Pulse Rate 116 H 11/02/18 14:56 Respiratory Rate 27 H 11/02/18 15:10 Blood Pressure 105/62 11/02/18 14:56 O2 Sat by Pulse Oximetry (%) 99 11/02/18 09:00 Labs: CBC, BMP 11/02/18 05:40 11/02/18 05:40 INR, PTT INR 2.03 (0.83-1.09) H 11/01/18 04:55 <Vijay Khan - Last Filed: 11/02/18 17:46> - Current Medication List Current Medications: Active Medications Acetaminophen (Ofirmev Injection -) 1,000 mg IVPB Q6H PRN PRN Reason: FEVER Last Admin: 11/02/18 12:09 Dose: 1,000 mg Albuterol Sulfate (Ventolin 0.083% Nebulizer Soln -) 1 amp NEB Q6H PRN PRN Reason: SHORT OF BREATH/WHEEZING Albuterol/Ipratropium (Duoneb -) 1 amp NEB RQID FLORY Last Admin: 11/03/18 08:09 Dose: 1 amp Atorvastatin Calcium (Lipitor -) 40 mg GT HS FLORY Last Admin: 11/02/18 22:14 Dose: 40 mg Pantoprazole Sodium 80 mg/ (Sodium Chloride) 100 mls @ 10 mls/hr IVPB Q10H FLORY Last Admin: 11/02/18 23:11 Dose: 10 mls/hr Vancomycin HCl (Vancomycin (Pre-Docked)) 1,000 mg in 250 mls @ 166.667 mls/hr IVPB Q24H FLORY; Protocol Last Admin: 11/02/18 15:40 Dose: 166.667 mls/hr Piperacillin Sod/Tazobactam (Sod 4.5 gm/ Dextrose) 100 mls @ 200 mls/hr IVPB Q8H-IV FLORY; Protocol Last Admin: 11/03/18 01:21 Dose: 200 mls/hr Memantine (Namenda -) 10 mg GT BID FLORY Last Admin: 11/02/18 22:14 Dose: 10 mg Metoprolol Tartrate (Lopressor -) 12.5 mg GT BID FLORY Last Admin: 11/02/18 22:14 Dose: 12.5 mg - Objective Vital Signs: Vital Signs Temperature 98.6 F 11/03/18 06:00 Pulse Rate 85 11/03/18 08:08 Respiratory Rate 20 11/03/18 08:08 Blood Pressure 95/63 11/03/18 06:00 O2 Sat by Pulse Oximetry (%) 100 11/03/18 08:08 Labs: CBC, BMP 11/03/18 06:00 11/03/18 06:00 INR, PTT INR 2.03 (0.83-1.09) H 11/01/18 04:55 <Rachid Bernabe - Last Filed: 11/03/18 08:52> Problem List - Problems (1) Acute and chronic respiratory failure with hypoxia Assessment/Plan: -pulm on board -mechanically ventilated -albuterol and duoneb PRN for SOB -keep SpO2 >90% Code(s): J96.21 - ACUTE AND CHRONIC RESPIRATORY FAILURE WITH HYPOXIA (2) Afib Assessment/Plan: -continue with metoprolol via GT -holding amiodarone while receiving zithromax IV Code(s): I48.91 - UNSPECIFIED ATRIAL FIBRILLATION (3) Anemia Assessment/Plan: -monitor Hg daily -transfuse if Hg <8.0 -stool OB positive--not canditate for GI intervention at present -current Hg 8.2 Code(s): D64.9 - ANEMIA, UNSPECIFIED Qualifiers: Anemia type: unspecified type Qualified Code(s): D64.9 - Anemia, unspecified (4) Elevated liver enzymes Assessment/Plan: -Abd US show mild fatty infiltration of liver vs hepatocellular disease -monitor LFT daily -current LFT: AST 77, ALT 108, Alk Phos 140 Code(s): R74.8 - ABNORMAL LEVELS OF OTHER SERUM ENZYMES (5) Pneumonia Assessment/Plan: -pulm and ID on board -continue with IV ABT -bronchodilators -keep SpO2 >90% -CXR show RUL PNA, left pleural effusion, left basilar airspace opacities Code(s): J18.9 - PNEUMONIA, UNSPECIFIED ORGANISM (6) Sepsis Assessment/Plan: -tylenol 650mg IVPB for temp >100F -ID on board -continue with IV vanco and zosyn, start on zithromax IV -repeat BC, UC -sputum culture ordered -influenza A/B swab -urine legionella Code(s): A41.9 - SEPSIS, UNSPECIFIED ORGANISM Qualifiers: Sepsis type: sepsis due to unspecified organism Qualified Code(s): A41.9 - Sepsis, unspecified organism <Tamela Samuel - Last Filed: 11/02/18 15:22> - Problems (1) Anemia Code(s): D64.9 - ANEMIA, UNSPECIFIED Qualifiers: Anemia type: unspecified type Qualified Code(s): D64.9 - Anemia, unspecified (2) Elevated liver enzymes Code(s): R74.8 - ABNORMAL LEVELS OF OTHER SERUM ENZYMES (3) Anemia Code(s): D64.9 - ANEMIA, UNSPECIFIED <Vijay Khan - Last Filed: 11/02/18 17:46> Assessment/Plan see problem list <Tamela Samuel - Last Filed: 11/02/18 15:22> PATIENT SEEN AND EXAMINED AND I AGREE WITH ABOVE NOTE <Rachid Bernabe - Last Filed: 11/03/18 08:52>
[2018-11-02] MEDS: VANCOMYCIN 1 GRAM (PRE-DOCKED) 1,000 MG/250 ML BAG IVPB SCH (15:40)
[2018-11-02] MEDS ORDERED: DEXTROSE 5%-WATER 100 ML IVPB ONE (16:56)
[2018-11-02] MEDS ORDERED: PIPERACILLIN/TAZOBACTAM 4.5 GM VIAL IVPB ONE (16:56)
[2018-11-02] MEDS: PIPERACILLIN/TAZOB 4.5 GM 4.5 GM in DEXTROSE 5%-WATER 100 ML IVPB SCH (18:07)
[2018-11-02] MEDS ORDERED: DONEPEZIL HCL 10 MG TABLET (FP) PO SCH (22:00)
[2018-11-02] MEDS: METOPROLOL TARTRATE 25 MG TABLET (FP) GT SCH (22:14)
[2018-11-02] MEDS: MEMANTINE HCL 10 MG TABLET (FP) GT SCH (22:14)
[2018-11-02] MEDS: ATORVASTATIN CA 40 MG TABLET (FP) GT SCH (22:14)
[2018-11-03] MEDS ORDERED: DEXTROSE 5%-WATER 100 ML IVPB ONE ×3 (01:12→17:52)
[2018-11-03] MEDS ORDERED: PIPERACILLIN/TAZOBACTAM 4.5 GM VIAL IVPB ONE ×3 (01:12→17:52)
[2018-11-03] MEDS: PIPERACILLIN/TAZOB 4.5 GM 4.5 GM in DEXTROSE 5%-WATER 100 ML IVPB SCH ×3 (01:21→17:53)
[2018-11-03 07:17] LABS: HEMATOCRIT 25.8 % (35.4-49); HEMOGLOBIN 8.6 GM/dL (11.7-16.9); MCH 28.6 pg (25.7-33.7); MCHC 33.5 g/dl (32.0-35.9); MEAN CELL VOLUME 85.3 fl (80-96); MEAN PLT VOLUME 8.6 fl (7.5-11.1); PLATELET COUNT 363 K/MM3 (134-434); RBC 3.02 M/mm3 (4.00-5.60); RDW 18.9 % (11.9-15.9); WHITE BLOOD COUNT 14.3 K/mm3 (4.0-10.0)
[2018-11-03 07:30] LABS: ALBUMIN 1.3 g/dl (3.4-5.0); ALK PHOS 128 U/L (45-117); ANION GAP 6 MMOL/L (8-16); BILIRUBIN,TOTAL 0.5 mg/dL (0.2-1); BLOOD UREA NITROGEN 66 mg/dL (7-18); CALCIUM 8.4 mg/dL (8.5-10.1); CHLORIDE 110 mmol/L (98-107); CO2 29 mmol/L (21-32); CREATININE 0.7 mg/dL (0.55-1.3); GLUCOSE,RANDOM 107 mg/dL (74-106); POTASSIUM 4.6 mmol/L (3.5-5.1); SGOT/AST 75 U/L (15-37); SGPT/ALT 115 U/L (13-61); SODIUM 145 mmol/L (136-145); TOT PROT 5.7 g/dl (6.4-8.2)
[2018-11-03 08:06] LABS: SERUM IRON SATURATION 8 % (15-55); TOTAL IRON BINDING CAPACITY 129 ug/dL (250-450); UIBC 119 ug/dL (111-343)
[2018-11-03] MEDS: ALBUTEROL SO4 2.5/IPRATROPIUM 0.5 INH SOL 3 ML VIAL.NEB. NEB SCH ×4 (08:09→20:25)
--- NOTE | 2018-11-03 08:54 | PN ---
Progress Note, Physician Chief Complaint: EVENTS AND NOTES REVIEWED PATIENT IS UNRESPONSIVE TO PHYSICAL AND VERBAL STIMULI - Current Medication List Current Medications: Active Medications Acetaminophen (Ofirmev Injection -) 1,000 mg IVPB Q6H PRN PRN Reason: FEVER Last Admin: 11/02/18 12:09 Dose: 1,000 mg Albuterol Sulfate (Ventolin 0.083% Nebulizer Soln -) 1 amp NEB Q6H PRN PRN Reason: SHORT OF BREATH/WHEEZING Albuterol/Ipratropium (Duoneb -) 1 amp NEB RQID FLORY Last Admin: 11/03/18 08:09 Dose: 1 amp Atorvastatin Calcium (Lipitor -) 40 mg GT HS FLORY Last Admin: 11/02/18 22:14 Dose: 40 mg Pantoprazole Sodium 80 mg/ (Sodium Chloride) 100 mls @ 10 mls/hr IVPB Q10H FLORY Last Admin: 11/02/18 23:11 Dose: 10 mls/hr Vancomycin HCl (Vancomycin (Pre-Docked)) 1,000 mg in 250 mls @ 166.667 mls/hr IVPB Q24H FLORY; Protocol Last Admin: 11/02/18 15:40 Dose: 166.667 mls/hr Piperacillin Sod/Tazobactam (Sod 4.5 gm/ Dextrose) 100 mls @ 200 mls/hr IVPB Q8H-IV FLORY; Protocol Last Admin: 11/03/18 01:21 Dose: 200 mls/hr Memantine (Namenda -) 10 mg GT BID FLORY Last Admin: 11/02/18 22:14 Dose: 10 mg Metoprolol Tartrate (Lopressor -) 12.5 mg GT BID FLORY Last Admin: 11/02/18 22:14 Dose: 12.5 mg - Objective Vital Signs: Vital Signs Temperature 98.6 F 11/03/18 06:00 Pulse Rate 85 11/03/18 08:08 Respiratory Rate 20 11/03/18 08:08 Blood Pressure 95/63 11/03/18 06:00 O2 Sat by Pulse Oximetry (%) 100 11/03/18 08:08 Constitutional: Yes: Other Cardiovascular: Yes: Regular Rate and Rhythm Respiratory: Yes: Mechanically Ventilated Gastrointestinal: Yes: Soft Genitourinary: Yes: Crawford Present Neurological: Yes: Unresponsive, Other Labs: CBC, BMP 11/03/18 06:00 11/03/18 06:00 INR, PTT INR 2.03 (0.83-1.09) H 11/01/18 04:55 Problem List - Problems (1) Abnormal LFTs Code(s): R94.5 - ABNORMAL RESULTS OF LIVER FUNCTION STUDIES (2) Acute and chronic respiratory failure with hypoxia Code(s): J96.21 - ACUTE AND CHRONIC RESPIRATORY FAILURE WITH HYPOXIA (3) Afib Code(s): I48.91 - UNSPECIFIED ATRIAL FIBRILLATION (4) Anemia Code(s): D64.9 - ANEMIA, UNSPECIFIED Qualifiers: Anemia type: unspecified type Qualified Code(s): D64.9 - Anemia, unspecified (5) Pneumonia Code(s): J18.9 - PNEUMONIA, UNSPECIFIED ORGANISM (6) Sepsis Code(s): A41.9 - SEPSIS, UNSPECIFIED ORGANISM Qualifiers: Sepsis type: sepsis due to unspecified organism Qualified Code(s): A41.9 - Sepsis, unspecified organism Assessment/Plan IV ABX PER ID CHECK CX WOUND AND SKIN CARE START JEVITY 20CC/HR MONITOR FEEDINGS FOR 24 HOURS DO NOT INCREASE RATE. DC CRAWFORD [employer] DIRECTIVES REVIEWED POOR OVERALL PROGNOSIS
[2018-11-03] MEDS: PANTOPRAZOLE SODIUM 80 MG in SODIUM CHLORIDE 100 ML IVPB SCH ×2 (09:37→20:15)
[2018-11-03] MEDS: METOPROLOL TARTRATE 25 MG TABLET (FP) GT SCH ×2 (10:07→22:03)
[2018-11-03] MEDS: MEMANTINE HCL 10 MG TABLET (FP) GT SCH ×2 (10:07→22:03)
--- NOTE | 2018-11-03 10:35 | PN ---
Progress Note (short form) - Note Progress Note: afebrile trach to vent Vital Signs Period Temp Pulse Resp BP Sys/Jesus Pulse Ox Last 24 Hr 98.2 F-101.8 F 83-116 18-27 92-107/56-63 100-100 cor-rrr lungs decreased bs at bases abd soft,nt ext no edema CBC, BMP 11/03/18 06:00 11/03/18 06:00 Microbiology 11/02/18 11:20 Urine - Urine Krishnamurthy Urine Culture - Final NO GROWTH OBTAINED 11/01/18 04:55 Blood - Peripheral Venous Blood Culture - Preliminary NO GROWTH OBTAINED AFTER 48 HOURS, INCUBATION TO CONTINUE FOR 3 DAYS. 11/01/18 04:55 Blood - Peripheral Venous Blood Culture - Preliminary NO GROWTH OBTAINED AFTER 48 HOURS, INCUBATION TO CONTINUE FOR 3 DAYS. 11/01/18 07:54 Urine - Urine Krishnamurthy Urine Culture - Final NO GROWTH OBTAINED Current Medications Acetaminophen (Ofirmev Injection -) 1,000 mg IVPB Q6H PRN PRN Reason: FEVER Last Admin: 11/02/18 12:09 Dose: 1,000 mg Albuterol Sulfate (Ventolin 0.083% Nebulizer Soln -) 1 amp NEB Q6H PRN PRN Reason: SHORT OF BREATH/WHEEZING Albuterol/Ipratropium (Duoneb -) 1 amp NEB RQID FLORY Last Admin: 11/03/18 08:09 Dose: 1 amp Atorvastatin Calcium (Lipitor -) 40 mg GT HS FLORY Last Admin: 11/02/18 22:14 Dose: 40 mg Pantoprazole Sodium 80 mg/ (Sodium Chloride) 100 mls @ 10 mls/hr IVPB Q10H FLORY Last Admin: 11/03/18 09:37 Dose: 10 mls/hr Vancomycin HCl (Vancomycin (Pre-Docked)) 1,000 mg in 250 mls @ 166.667 mls/hr IVPB Q24H FLORY; Protocol Last Admin: 11/02/18 15:40 Dose: 166.667 mls/hr Piperacillin Sod/Tazobactam (Sod 4.5 gm/ Dextrose) 100 mls @ 200 mls/hr IVPB Q8H-IV FLORY; Protocol Last Admin: 11/03/18 10:07 Dose: 200 mls/hr Memantine (Namenda -) 10 mg GT BID FLORY Last Admin: 11/03/18 10:07 Dose: 10 mg Metoprolol Tartrate (Lopressor -) 12.5 mg GT BID [facility] Last Admin: 11/03/18 10:07 Dose: 12.5 mg a/p fevers improved multilobar pneumonia continue vanco/zosyn sputum culture urinary antigens influenza screen negative abnl lfts- sono no stones, normal GB [id number] holding lipitor? history of afib-cardiology to evaluate f/u cultures overall prognosis is guarded d/w hospitalist Problem List - Problems (1) Acute and chronic respiratory failure with hypoxia Code(s): J96.21 - ACUTE AND CHRONIC RESPIRATORY FAILURE WITH HYPOXIA (2) Pneumonia Code(s): J18.9 - PNEUMONIA, UNSPECIFIED ORGANISM (3) Anemia Code(s): D64.9 - ANEMIA, UNSPECIFIED Qualifiers: Anemia type: unspecified type Qualified Code(s): D64.9 - Anemia, unspecified (4) Abnormal LFTs Code(s): R94.5 - ABNORMAL RESULTS OF LIVER FUNCTION STUDIES
--- NOTE | 2018-11-03 11:43 | CONSULT ---
Consult - text type - Consultation Consultation Note: Renal consult for high BUN This is a 73 year old gentleman with hx of chronic respiratory failure on vent via trach, Alzheimers dementia (not verbal), GERD who presented [place] with hypotension and noted to have acute on chronic anemia and PNA and found to have high BUN levels with normal Cr. Pt seen and examined. Non-verbal and not able to provide history. Stool occult blood was positive. No Melena noted by nurse. Not on steroids. Had an indwelling perez catheter that was just removed today. Was febrile throughout the admission. PMhx: as above Allergies: NKDA Family Hx: Unable to obtain Social Hx: Unable to obtain ROS: Unable to obtain due to clinical status Home Medications Medication Instructions Recorded Acetaminophen [Tylenol -] 650 mg GT Q6H PRN 11/01/18 Albuterol 0.083% Nebulizer Lexus 1 neb NEB Q6H 11/01/18 [Ventolin 0.083% Nebulizer Soln -] Amiodarone HCl 200 mg GT DAILY 11/01/18 Apixaban [Eliquis] 5 mg GT BID 11/01/18 Aspirin 81 mg GT DAILY 11/01/18 Atorvastatin Ca [Lipitor] 40 mg GT HS 11/01/18 Butenafine HCl [Lotrimin Ultra] 30 gm TP BID 11/01/18 Butenafine HCl [Lotrimin Ultra] 30 gm TP BID 11/01/18 Clonazepam [Klonopin] 1 mg GT Q6H 11/01/18 Donepezil HCl [Aricept -] 10 mg GT HS 11/01/18 LORazepam [Ativan] 1 mg GT HS 11/01/18 Lansoprazole [Prevacid] 30 mg GT DAILY 11/01/18 Memantine HCl [Namenda -] 10 mg GT BID 11/01/18 Metoprolol Tartrate [Lopressor -] 12.5 mg GT Q12H 11/01/18 Peg 400/Hypromellose/Glycerin 15 ml OP BID 11/01/18 [Artificial Tears Drops] Vital Signs Temperature 98.5 F 11/03/18 09:00 Pulse Rate 89 11/03/18 09:00 Respiratory Rate 20 11/03/18 09:00 Blood Pressure 101/62 11/03/18 09:00 O2 Sat by Pulse Oximetry (%) 100 11/03/18 08:08 Intake & Output 10/31/18 11/01/18 11/02/18 11/03/18 23:59 23:59 23:59 23:59 Intake Total 1320 180 Output Total 200 750 300 Balance -200 570 -120 Weight 57.379 kg NAD, non-verbal on vent via trach dry MM no JVD RRR, no M/R Course BS, no rales soft NT/ND no bladder distension No LE edema, clubbing or cyanosis CBC, BMP 11/03/18 06:00 11/03/18 06:00 Current Medications Acetaminophen (Ofirmev Injection -) 1,000 mg IVPB Q6H PRN PRN Reason: FEVER Last Admin: 11/02/18 12:09 Dose: 1,000 mg Albuterol Sulfate (Ventolin 0.083% Nebulizer Soln -) 1 amp NEB Q6H PRN PRN Reason: SHORT OF BREATH/WHEEZING Albuterol/Ipratropium (Duoneb -) 1 amp NEB RQID [facility] Last Admin: 11/03/18 08:09 Dose: 1 amp Atorvastatin Calcium (Lipitor -) 40 mg GT HS [facility] Last Admin: 11/02/18 22:14 Dose: 40 mg Pantoprazole Sodium 80 mg/ (Sodium Chloride) 100 mls @ 10 mls/hr IVPB Q10H [facility] Last Admin: 11/03/18 09:37 Dose: 10 mls/hr Vancomycin HCl (Vancomycin (Pre-Docked)) 1,000 mg in 250 mls @ 166.667 mls/hr IVPB Q24H [facility]; Protocol Last Admin: 11/02/18 15:40 Dose: 166.667 mls/hr Piperacillin Sod/Tazobactam (Sod 4.5 gm/ Dextrose) 100 mls @ 200 mls/hr IVPB Q8H-IV [facility]; Protocol Last Admin: 11/03/18 10:07 Dose: 200 mls/hr Memantine (Namenda -) 10 mg GT BID [facility] Last Admin: 11/03/18 10:07 Dose: 10 mg Metoprolol Tartrate (Lopressor -) 12.5 mg GT BID [facility] Last Admin: 11/03/18 10:07 Dose: 12.5 mg 73 year old gentleman with hx of chronic respiratory failure on vent via trach, Alzheimers dementia (not verbal), GERD who presented [place] with hypotension and noted to have acute on chronic anemia and PNA and found to have high BUN levels with normal Cr. #Elevated BUN/Azotemia #GI Bleed #PNA/Sepsis #Respiratory failure on Vent #Acute on Chronic Anemia #Leukocytoiss Elevated BUN likely due to GI bleed as opposed to decreased renal function. Pt was not on steroids and did not have urine outflow obstruction which are other causes of independently elevated BUN. Would continue present management including tube feeds and free water keep MAP > 65 Continue PPI gtt as per GI Continue Empiric Abx as per ID Trend H/H and transfuse as per primary team Thank you Will follow Andres Mary DO
--- NOTE | 2018-11-03 13:35 | PN ---
Progress Note, Physician History of Present Illness: pulmonary lethargic on vent support ac mode,- resp distress - Current Medication List Current Medications: Active Medications Acetaminophen (Ofirmev Injection -) 1,000 mg IVPB Q6H PRN PRN Reason: FEVER Last Admin: 11/02/18 12:09 Dose: 1,000 mg Albuterol Sulfate (Ventolin 0.083% Nebulizer Soln -) 1 amp NEB Q6H PRN PRN Reason: SHORT OF BREATH/WHEEZING Albuterol/Ipratropium (Duoneb -) 1 amp NEB RQID [facility] Last Admin: 11/03/18 12:14 Dose: 1 amp Atorvastatin Calcium (Lipitor -) 40 mg GT HS [facility] Last Admin: 11/02/18 22:14 Dose: 40 mg Pantoprazole Sodium 80 mg/ (Sodium Chloride) 100 mls @ 10 mls/hr IVPB Q10H [facility] Last Admin: 11/03/18 09:37 Dose: 10 mls/hr Vancomycin HCl (Vancomycin (Pre-Docked)) 1,000 mg in 250 mls @ 166.667 mls/hr IVPB Q24H [facility]; Protocol Last Admin: 11/02/18 15:40 Dose: 166.667 mls/hr Piperacillin Sod/Tazobactam (Sod 4.5 gm/ Dextrose) 100 mls @ 200 mls/hr IVPB Q8H-IV [facility]; Protocol Last Admin: 11/03/18 10:07 Dose: 200 mls/hr Memantine (Namenda -) 10 mg GT BID [facility] Last Admin: 11/03/18 10:07 Dose: 10 mg Metoprolol Tartrate (Lopressor -) 12.5 mg GT BID [facility] Last Admin: 11/03/18 10:07 Dose: 12.5 mg - Objective Vital Signs: Vital Signs Temperature 98.5 F 11/03/18 09:00 Pulse Rate 89 11/03/18 09:00 Respiratory Rate 20 11/03/18 12:13 Blood Pressure 101/62 11/03/18 09:00 O2 Sat by Pulse Oximetry (%) 100 11/03/18 08:08 Constitutional: Yes: Cachectic, Other (lethargic) Eyes: Yes: WNL HENT: Yes: WNL Neck: Yes: Supple (trach) Cardiovascular: Yes: Pulse Irregular, S1, S2 Respiratory: Yes: Rhonchi (luz rhonchi) Gastrointestinal: Yes: Normal Bowel Sounds, Soft Extremities: Yes: WNL Edema: No Labs: CBC, BMP 11/03/18 06:00 11/03/18 06:00 INR, PTT INR 2.03 (0.83-1.09) H 11/01/18 04:55 Problem List - Problems (1) Acute and chronic respiratory failure with hypoxia Code(s): J96.21 - ACUTE AND CHRONIC RESPIRATORY FAILURE WITH HYPOXIA (2) Afib Code(s): I48.91 - UNSPECIFIED ATRIAL FIBRILLATION (3) Anemia Code(s): D64.9 - ANEMIA, UNSPECIFIED Qualifiers: Anemia type: unspecified type Qualified Code(s): D64.9 - Anemia, unspecified (4) Anemia Code(s): D64.9 - ANEMIA, UNSPECIFIED (5) Pneumonia Code(s): J18.9 - PNEUMONIA, UNSPECIFIED ORGANISM (6) Sepsis Code(s): A41.9 - SEPSIS, UNSPECIFIED ORGANISM Qualifiers: Sepsis type: sepsis due to unspecified organism Qualified Code(s): A41.9 - Sepsis, unspecified organism Assessment/Plan A/P Acute on Chronic Hypoxic and Hypercapneic Respiratory Failure Multilobar Pneumonia Sepsis Elevated LFTs Atrial Fibrillation Anemia r/o GI Bleed Dementia Failure to Thrive - antibiotics per ID - inhaled bronchodilators - taper O2 to keep SpO2 >90% - monitor H/H - protonix - rate control - hold anticoagulation for now - vent support on ac mode - DVT/GI prophylaxis Problem List - Problems (1) Acute and chronic respiratory failure with hypoxia Code(s): J96.21 - ACUTE AND CHRONIC RESPIRATORY FAILURE WITH HYPOXIA (2) Pneumonia Code(s): J18.9 - PNEUMONIA, UNSPECIFIED ORGANISM
--- NOTE | 2018-11-03 13:47 | CON.CARD ---
Consult Consult Specialty:: Cardiology Referred by:: Dr. Tripathi Reason for Consultation:: Paroxysmal atrial fibrillation - History of Present Illness Chief Complaint: Altered MS and hypotension History of Present Illness: 73 year-old man, NHR, with a PMHx of paroxysmal atrial fibrillation, chronic respiratory failure s/p tracheostomy/PEG placement, Alzheimer's dementia, GERD admitted 11/01/2018 [facility] the [facility] for lethargy and hypotension. Noted to be hypoxic on 40% FiO2 and hypotensive. CXR showing bilateral infiltrates, started on IVF and antibiotics for presumed pneumonia. The patient has a history of paroxysmal atrial fibrillation. He has been in regular rhythm. ECG 11/01/2018 revealed normal sinus rhythm and normal ST and T waves. He was seen by multiple consults (pulmonary, GI, and renal) for respiratory failure, GI bleeding, high BUN. - History Source History Provided By: Medical Record Limitations to Obtaining History: No Limitations - Past Medical History [employer]ED [employer]: Yes: Alzheimer's Cardio/Vascular: Yes: AFIB Pulmonary: Yes: Other (resp failure intubated on vent) Gastrointestinal: Yes: GERD - Alcohol/Substance Use Hx Alcohol Use: No - Smoking History Smoking history: Unknown if ever smoked Have you smoked in the past 12 months: No Home Medications - Allergies Allergies/Adverse Reactions: Allergies Allergy/AdvReac Type Severity Reaction Status Date / Time No Known Allergies Allergy Verified 11/01/18 04:12 - Home Medications Home Medications: Ambulatory Orders Acetaminophen [Tylenol -] 650 mg GT Q6H PRN 11/01/18 Albuterol 0.083% Nebulizer Lexus [Ventolin 0.083% Nebulizer Soln -] 1 neb NEB Q6H 11/01/18 Amiodarone HCl 200 mg GT DAILY 11/01/18 Apixaban [Eliquis] 5 mg GT BID 11/01/18 Aspirin 81 mg GT DAILY 11/01/18 Atorvastatin Ca [Lipitor] 40 mg GT HS 11/01/18 Butenafine HCl [Lotrimin Ultra] 30 gm TP BID 11/01/18 Butenafine HCl [Lotrimin Ultra] 30 gm TP BID 11/01/18 Clonazepam [Klonopin] 1 mg GT Q6H 11/01/18 Donepezil HCl [Aricept -] 10 mg GT HS 11/01/18 LORazepam [Ativan] 1 mg GT HS 11/01/18 Lansoprazole [Prevacid] 30 mg GT DAILY 11/01/18 Memantine HCl [Namenda -] 10 mg GT BID 11/01/18 Metoprolol Tartrate [Lopressor -] 12.5 mg GT Q12H 11/01/18 Peg 400/Hypromellose/Glycerin [Artificial Tears Drops] 15 ml OP BID 11/01/18 Review of Systems - Review of Systems Constitutional: reports: Fever, Lethargy, Weakness Cardiovascular: reports: No Symptoms Respiratory: reports: SOB Vital Signs: Vital Signs Temperature 98.5 F 11/03/18 09:00 Pulse Rate 89 11/03/18 09:00 Respiratory Rate 20 11/03/18 12:13 Blood Pressure 101/62 11/03/18 09:00 O2 Sat by Pulse Oximetry (%) 100 11/03/18 08:08 General: Well developed. Poorly nourished.Cachectic. No acute distress. Head: Normocephalic. Atraumatic, Neck: Supple. No JVD. No bruits. Trach in place Heart: Normal S1, S2: Regular rhythm and rate. No murmur. No gallop or rub. Lungs: Symmetrical vebt BS. Abdomen: Soft. Bowel sound positive. Extremities: No edema. No clubbing or cyanosis. - Other Data Labs, Other Data: CBC, BMP 11/03/18 06:00 11/03/18 06:00 INR, PTT INR 2.03 (0.83-1.09) H 11/01/18 04:55 Assessment/Plan 73 year-old man, NHR, with a PMHx of paroxysmal atrial fibrillation, chronic respiratory failure s/p tracheostomy/PEG placement, Alzheimer's dementia, GERD admitted 11/01/2018 from the [facility] for [facility]argy and hypotension. Noted to be hypoxic on 40% FiO2 and hypotensive. CXR showing bilateral infiltrates, started on IVF and antibiotics for presumed pneumonia. The patient has a history of paroxysmal atrial fibrillation. He has been in regular rhythm. ECG 11/01/2018 revealed normal sinus rhythm and normal ST and T waves. He was seen by multiple consults (pulmonary, GI, and renal) for respiratory failure, GI bleeding, high BUN. Paroxysmal atrial fibrillation: Remains in sinus rhythm while on Amiodarone. 1) Resume amiodarone for rhythm control. 2) Agree to hold Eliquis in the setting of severe anemia and GI bleeding. 3) May discontinue atorvastatin. Patient is poorly nourished with extremely low cholesterol. Please call us for reconsult as needed.
[2018-11-03] MEDS: VANCOMYCIN 1 GRAM (PRE-DOCKED) 1,000 MG/250 ML BAG IVPB SCH (14:16)
[2018-11-03] MEDS: ACETAMINOPHEN 1000 MG/100 ML VIAL (NON FORMULARY) IVPB PRN (17:25)
[2018-11-03] MEDS: ATORVASTATIN CA 40 MG TABLET (FP) GT SCH (22:03)
[2018-11-04] MEDS ORDERED: PIPERACILLIN/TAZOBACTAM 4.5 GM VIAL IVPB ONE ×3 (02:02→18:00)
[2018-11-04] MEDS ORDERED: DEXTROSE 5%-WATER 100 ML IVPB ONE ×3 (02:03→18:00)
[2018-11-04] MEDS: PIPERACILLIN/TAZOB 4.5 GM 4.5 GM in DEXTROSE 5%-WATER 100 ML IVPB SCH ×3 (02:45→18:19)
[2018-11-04] MEDS: PANTOPRAZOLE SODIUM 80 MG in SODIUM CHLORIDE 100 ML IVPB SCH ×2 (07:00→17:21)
[2018-11-04] MEDS: ALBUTEROL SO4 2.5/IPRATROPIUM 0.5 INH SOL 3 ML VIAL.NEB. NEB SCH ×4 (08:45→21:42)
[2018-11-04] MEDS: MEMANTINE HCL 10 MG TABLET (FP) GT SCH ×2 (10:00→22:15)
[2018-11-04] MEDS: METOPROLOL TARTRATE 25 MG TABLET (FP) GT SCH ×2 (10:01→22:15)
--- NOTE | 2018-11-04 10:02 | PN ---
Progress Note, Physician Chief Complaint: NO CHANGES TOLERATING FEEDS AT 20CC/HR - Current Medication List Current Medications: Active Medications Acetaminophen (Ofirmev Injection -) 1,000 mg IVPB Q6H PRN PRN Reason: FEVER Last Admin: 11/03/18 17:25 Dose: 1,000 mg Albuterol Sulfate (Ventolin 0.083% Nebulizer Soln -) 1 amp NEB Q6H PRN PRN Reason: SHORT OF BREATH/WHEEZING Albuterol/Ipratropium (Duoneb -) 1 amp NEB RQID [facility] Last Admin: 11/04/18 08:45 Dose: 1 amp Atorvastatin Calcium (Lipitor -) 40 mg GT HS [facility] Last Admin: 11/03/18 22:03 Dose: 40 mg Pantoprazole Sodium 80 mg/ (Sodium Chloride) 100 mls @ 10 mls/hr IVPB Q10H [facility] Last Admin: 11/04/18 07:00 Dose: 10 mls/hr Vancomycin HCl (Vancomycin (Pre-Docked)) 1,000 mg in 250 mls @ 166.667 mls/hr IVPB Q24H [facility]; Protocol Last Admin: 11/03/18 14:16 Dose: 166.667 mls/hr Piperacillin Sod/Tazobactam (Sod 4.5 gm/ Dextrose) 100 mls @ 200 mls/hr IVPB Q8H-IV [facility]; Protocol Last Admin: 11/04/18 10:00 Dose: 200 mls/hr Memantine (Namenda -) 10 mg GT BID [facility] Last Admin: 11/04/18 10:00 Dose: 10 mg Metoprolol Tartrate (Lopressor -) 12.5 mg GT BID [facility] Last Admin: 11/04/18 10:01 Dose: 12.5 mg - Objective Vital Signs: Vital Signs Temperature 99.2 F 11/04/18 06:00 Pulse Rate 81 11/04/18 08:43 Respiratory Rate 20 11/04/18 08:43 Blood Pressure 101/60 11/04/18 06:00 O2 Sat by Pulse Oximetry (%) 98 11/04/18 08:43 Constitutional: Yes: Mild Distress Cardiovascular: Yes: Pulse Irregular Respiratory: Yes: Mechanically Ventilated, Other (TRACHEOSTOMY) Gastrointestinal: Yes: Soft (FEEDING TUBE FUNCTIONING) Genitourinary: Yes: Incontinence Musculoskeletal: Yes: Muscle Weakness Extremities: Yes: Other (MULTIPLE SMALL STAGE 2 AND 3 SKIN ULCERS WITH DRESSING DRY) Edema: No Integumentary: Yes: Pressure Ulcer, Rash Wound/Incision: Yes: Dressing Dry and Intact Neurological: Yes: Pre-Existing Deficit ...Motor Strength: LLE, RLE Psychiatric: Yes: Other Labs: CBC, BMP 11/03/18 06:00 11/03/18 06:00 INR, PTT INR 2.03 (0.83-1.09) H 11/01/18 04:55 Problem List - Problems (1) Abnormal LFTs Code(s): R94.5 - ABNORMAL RESULTS OF LIVER FUNCTION STUDIES (2) Acute and chronic respiratory failure with hypoxia Code(s): J96.21 - ACUTE AND CHRONIC RESPIRATORY FAILURE WITH HYPOXIA (3) Afib Code(s): I48.91 - UNSPECIFIED ATRIAL FIBRILLATION (4) Anemia Code(s): D64.9 - ANEMIA, UNSPECIFIED Qualifiers: Anemia type: unspecified type Qualified Code(s): D64.9 - Anemia, unspecified (5) Pneumonia Code(s): J18.9 - PNEUMONIA, UNSPECIFIED ORGANISM (6) Sepsis Code(s): A41.9 - SEPSIS, UNSPECIFIED ORGANISM Qualifiers: Sepsis type: sepsis due to unspecified organism Qualified Code(s): A41.9 - Sepsis, unspecified organism (7) Decubitus skin ulcer Code(s): L89.90 - PRESSURE ULCER OF UNSPECIFIED SITE, UNSPECIFIED STAGE Qualifiers: Pressure injury location: contiguous region involving back and hip Assessment/Plan WOUND CARE DRESSING DAILY CHANGE WET SOAK AND CLEAN PATCH AND PADS FOR DECREASED WEIGHT BEARING TO AREA OF ULCER VASC SURGERY EVAL FOR POSSIBLE DEBRIDEMENT. TOLERATING FEEDINGS WILL INCREASE FOR GOAL 50CC/HR IV ABX PALLIATIVE CARE CONSULT/COMFORT/DNR/DNI/OTHER
--- NOTE | 2018-11-04 10:40 | PN ---
Progress Note (short form) - Note Progress Note: PULMONARY Vented on volume assist control. Febrile overnight. Saturating well on 50% FiO2. Vital Signs Period Temp Pulse Resp BP Sys/Jesus Pulse Ox Last 24 Hr 98.9 F-101.4 F 79-106 20-21 92-105/57-68 98 Gen: vented, mildly tachypneic, cachectic Heart: RRR Lung: scattered rhonchi Abd: soft, nontender Ext: no edema CBC, BMP 11/03/18 06:00 11/03/18 06:00 Active Medications Acetaminophen (Ofirmev Injection -) 1,000 mg IVPB Q6H PRN PRN Reason: FEVER Last Admin: 11/03/18 17:25 Dose: 1,000 mg Albuterol Sulfate (Ventolin 0.083% Nebulizer Soln -) 1 amp NEB Q6H PRN PRN Reason: SHORT OF BREATH/WHEEZING Albuterol/Ipratropium (Duoneb -) 1 amp NEB RQID [facility] Last Admin: 11/04/18 08:45 Dose: 1 amp Atorvastatin Calcium (Lipitor -) 40 mg GT HS [facility] Last Admin: 11/03/18 22:03 Dose: 40 mg Pantoprazole Sodium 80 mg/ (Sodium Chloride) 100 mls @ 10 mls/hr IVPB Q10H [facility] Last Admin: 11/04/18 07:00 Dose: 10 mls/hr Vancomycin HCl (Vancomycin (Pre-Docked)) 1,000 mg in 250 mls @ 166.667 mls/hr IVPB Q24H [facility]; Protocol Last Admin: 11/03/18 14:16 Dose: 166.667 mls/hr Piperacillin Sod/Tazobactam (Sod 4.5 gm/ Dextrose) 100 mls @ 200 mls/hr IVPB Q8H-IV [facility]; Protocol Last Admin: 11/04/18 10:00 Dose: 200 mls/hr Memantine (Namenda -) 10 mg GT BID [facility] Last Admin: 11/04/18 10:00 Dose: 10 mg Metoprolol Tartrate (Lopressor -) 12.5 mg GT BID [facility] Last Admin: 11/04/18 10:01 Dose: 12.5 mg A/P Acute on Chronic Hypoxic and Hypercapneic Respiratory Failure Multilobar Pneumonia Sepsis Elevated LFTs Atrial Fibrillation Anemia r/o GI Bleed Dementia Failure to Thrive - continue antibiotics per ID - f/u cultures - inhaled bronchodilators - taper O2 to keep SpO2 >90% - monitor H/H - protonix - rate control - hold anticoagulation for now - continue volume assist control - not a candidate for weaning at this time due to poor mental status - DVT/GI prophylaxis Problem List - Problems (1) Acute and chronic respiratory failure with hypoxia Code(s): J96.21 - ACUTE AND CHRONIC RESPIRATORY FAILURE WITH HYPOXIA (2) Pneumonia Code(s): J18.9 - PNEUMONIA, UNSPECIFIED ORGANISM
--- NOTE | 2018-11-04 14:19 | CONSULT ---
- Consultation REQUESTING PROVIDER: CONSULT REQUEST: We have been asked to surgically evaluate this patient for decubitus ulcer PCP:Lexie Tripathi HISTORY OF PRESENT ILLNESS: 73yo M with PMH of acute respiratory failure w/hypoxia s/p ventilator placement , PEG tube, Afib, anxiety disorder, GERD, Alzheimer's presented from [facility] with lethargy and hypotension. Patient is nonverbal at baseline. Vascular/ wound care was consulted to evaluate his Decubitus ulcer. Unable to obtain further history as pt nonverbal Home Medications Medication Instructions Recorded Acetaminophen [Tylenol -] 650 mg GT Q6H PRN 11/01/18 Albuterol 0.083% Nebulizer Lexus 1 neb NEB Q6H 11/01/18 [Ventolin 0.083% Nebulizer Soln -] Amiodarone HCl 200 mg GT DAILY 11/01/18 Apixaban [Eliquis] 5 mg GT BID 11/01/18 Aspirin 81 mg GT DAILY 11/01/18 Atorvastatin Ca [Lipitor] 40 mg GT HS 11/01/18 Butenafine HCl [Lotrimin Ultra] 30 gm TP BID 11/01/18 Butenafine HCl [Lotrimin Ultra] 30 gm TP BID 11/01/18 Clonazepam [Klonopin] 1 mg GT Q6H 11/01/18 Donepezil HCl [Aricept -] 10 mg GT HS 11/01/18 LORazepam [Ativan] 1 mg GT HS 11/01/18 Lansoprazole [Prevacid] 30 mg GT DAILY 11/01/18 Memantine HCl [Namenda -] 10 mg GT BID 11/01/18 Metoprolol Tartrate [Lopressor -] 12.5 mg GT Q12H 11/01/18 Peg 400/Hypromellose/Glycerin 15 ml OP BID 11/01/18 [Artificial Tears Drops] Allergies Allergy/AdvReac Type Severity Reaction Status Date / Time No Known Allergies Allergy Verified 11/01/18 04:12 PHYSICAL EXAM: GENERAL: Awake, oriented to voice EYES: PERRL, sclera anicteric, conjunctiva clear. NECK: Normal ROM, supple without lymphadenopathy, JVD, or masses. Trach present on vent BACK: 10cm x 8cm stage 1 decube over lumbar region with 1 cm stage 2 ulcer Vital Signs Temperature 99.2 F 11/04/18 06:00 Pulse Rate 88 03/14/19 10:00 Respiratory Rate 18 11/04/18 10:00 Blood Pressure 124/68 11/04/18 10:00 O2 Sat by Pulse Oximetry (%) 98 11/04/18 08:43 Lab Results WBC 14.3 K/mm3 (4.0-10.0) H 11/03/18 06:00 RBC 3.02 M/mm3 (4.00-5.60) L 11/03/18 06:00 Hgb 8.6 GM/dL (11.7-16.9) L 11/03/18 06:00 Hct 25.8 % (35.4-49) L 11/03/18 06:00 MCV 85.3 fl (80-96) 11/03/18 06:00 MCHC 33.5 g/dl (32.0-35.9) 11/03/18 06:00 RDW 18.9 % (11.9-15.9) H 11/03/18 06:00 Plt Count 363 K/MM3 (134-434) 11/03/18 06:00 Sodium 145 mmol/L (136-145) 11/03/18 06:00 Potassium 4.6 mmol/L (3.5-5.1) 11/03/18 06:00 Chloride 110 mmol/L (98-107) H 11/03/18 06:00 Carbon Dioxide 29 mmol/L (21-32) 11/03/18 06:00 Anion Gap 6 MMOL/L (8-16) L 11/03/18 06:00 BUN 66 mg/dL (7-18) H 11/03/18 06:00 Creatinine 0.7 mg/dL (0.55-1.3) 11/03/18 06:00 Random Glucose 107 mg/dL (74-106) H 11/03/18 06:00 Calcium 8.4 mg/dL (8.5-10.1) L 11/03/18 06:00 Blood Type O POSITIVE 11/02/18 12:00 Antibody Screen Negative 11/02/18 12:00 INR 2.03 (0.83-1.09) H 11/01/18 04:55 Problem List - Problems (1) Decubitus skin ulcer Assessment/Plan: Plan -no need for surgical debridement at this time -recommend Allevyn sacral dressing, bacitracin over stage 2 ulcer. -frequent bed turning q2hr, air bed Please contact vascular surgery if any changes, case discussed with Dr. Grande who agrees. Code(s): L89.90 - PRESSURE ULCER OF UNSPECIFIED SITE, UNSPECIFIED STAGE Qualifiers: Pressure injury location: contiguous region involving back and hip
--- NOTE | 2018-11-04 14:41 | PN ---
Progress Note (short form) - Note Progress Note: Renal follow up for azotemia Pt seen and examined at the bedside on Vent via trach making urine in diaper non-verbal Vital Signs Temperature 99.2 F 11/04/18 06:00 Pulse Rate 88 11/04/18 10:00 Respiratory Rate 18 11/04/18 10:00 Blood Pressure 124/68 11/04/18 10:00 O2 Sat by Pulse Oximetry (%) 98 11/04/18 08:43 Intake & Output 11/01/18 11/02/18 11/03/18 11/04/18 23:59 23:59 23:59 23:59 Intake Total 1320 1410 Output Total 200 750 300 Balance -391 598 1756 Weight 57.379 kg 57.153 kg NAD, non-verbal on vent via trach dry MM no JVD RRR, no M/R Course BS, no rales soft NT/ND no bladder distension No LE edema, clubbing or cyanosis CBC, BMP 11/03/18 06:00 11/03/18 06:00 Current Medications Acetaminophen (Ofirmev Injection -) 1,000 mg IVPB Q6H PRN PRN Reason: FEVER Last Admin: 11/03/18 17:25 Dose: 1,000 mg Albuterol Sulfate (Ventolin 0.083% Nebulizer Soln -) 1 amp NEB Q6H PRN PRN Reason: SHORT OF BREATH/WHEEZING Albuterol/Ipratropium (Duoneb -) 1 amp NEB RQID [facility] Last Admin: 11/04/18 08:45 Dose: 1 amp Atorvastatin Calcium (Lipitor -) 40 mg GT HS [facility] Last Admin: 11/03/18 22:03 Dose: 40 mg Pantoprazole Sodium 80 mg/ (Sodium Chloride) 100 mls @ 10 mls/hr IVPB Q10H [facility] Last Admin: 11/04/18 07:00 Dose: 10 mls/hr Vancomycin HCl (Vancomycin (Pre-Docked)) 1,000 mg in 250 mls @ 166.667 mls/hr IVPB Q24H [facility]; Protocol Last Admin: 11/03/18 14:16 Dose: 166.667 mls/hr Piperacillin Sod/Tazobactam (Sod 4.5 gm/ Dextrose) 100 mls @ 200 mls/hr IVPB Q8H-IV [facility]; Protocol Last Admin: 11/04/18 10:00 Dose: 200 mls/hr Memantine (Namenda -) 10 mg GT BID [facility] Last Admin: 11/04/18 10:00 Dose: 10 mg Metoprolol Tartrate (Lopressor -) 12.5 mg GT BID [facility] Last Admin: 11/04/18 10:01 Dose: 12.5 mg 73 year old gentleman with hx of chronic respiratory failure on vent via trach, Alzheimers dementia (not verbal), GERD who presented [place] with hypotension and noted to have acute on chronic anemia and PNA and found to have high BUN levels with normal Cr. #Elevated BUN/Azotemia #GI Bleed #PNA/Sepsis #Respiratory failure on Vent #Acute on Chronic Anemia #Leukocytoiss BUN remains high but Cr stable and pt is voiding would continue to monitor renal function and electrolytes daily continue Abx as per ID Trend H/H, transfuse as needed Thank you Will follow Andres Mary DO
[2018-11-04] MEDS: VANCOMYCIN 1 GRAM (PRE-DOCKED) 1,000 MG/250 ML BAG IVPB SCH (14:50)
[2018-11-04] MEDS: ACETAMINOPHEN 1000 MG/100 ML VIAL (NON FORMULARY) IVPB PRN (19:56)
[2018-11-04] MEDS: ATORVASTATIN CA 40 MG TABLET (FP) GT SCH (22:15)
[2018-11-05] MEDS ORDERED: PIPERACILLIN/TAZOBACTAM 4.5 GM VIAL IVPB ONE ×3 (00:58→17:23)
[2018-11-05] MEDS ORDERED: DEXTROSE 5%-WATER 100 ML IVPB ONE ×3 (00:58→17:23)
[2018-11-05] MEDS: PIPERACILLIN/TAZOB 4.5 GM 4.5 GM in DEXTROSE 5%-WATER 100 ML IVPB SCH ×3 (01:27→18:52)
[2018-11-05] MEDS: PANTOPRAZOLE SODIUM 80 MG in SODIUM CHLORIDE 100 ML IVPB SCH ×3 (03:21→22:46)
[2018-11-05] MEDS: ALBUTEROL SO4 2.5/IPRATROPIUM 0.5 INH SOL 3 ML VIAL.NEB. NEB SCH ×4 (07:20→20:50)
[2018-11-05] MEDS: METOPROLOL TARTRATE 25 MG TABLET (FP) GT SCH ×2 (10:30→22:47)
[2018-11-05] MEDS: MEMANTINE HCL 10 MG TABLET (FP) GT SCH ×2 (10:30→22:47)
--- NOTE | 2018-11-05 12:21 | PN ---
Progress Note (short form) - Note Progress Note: Renal follow up for azotemia Pt seen and examined at the bedside on Vent via trach on tube feeds no overnight events no melena noted Vital Signs Temperature 98.9 F 11/05/18 05:23 Pulse Rate 91 H 11/05/18 11:07 Respiratory Rate 22 H 11/05/18 12:05 Blood Pressure 129/64 11/05/18 05:23 O2 Sat by Pulse Oximetry (%) 98 11/05/18 11:07 Intake & Output 11/02/18 11/03/18 11/04/18 11/05/18 23:59 23:59 23:59 23:59 Intake Total 1320 1410 1250 1300 Output Total 750 300 Balance 570 1110 1250 1300 Weight 57.153 kg NAD, non-verbal on vent via trach RRR, no M/R Course BS, no rales soft NT/ND no bladder distension No LE edema, clubbing or cyanosis CBC, BMP 11/03/18 06:00 Current Medications Acetaminophen (Ofirmev Injection -) 1,000 mg IVPB Q6H PRN PRN Reason: FEVER Last Admin: 11/04/18 19:56 Dose: 1,000 mg Albuterol Sulfate (Ventolin 0.083% Nebulizer Soln -) 1 amp NEB Q6H PRN PRN Reason: SHORT OF BREATH/WHEEZING Albuterol/Ipratropium (Duoneb -) 1 amp NEB RQID [facility] Last Admin: 11/05/18 12:04 Dose: 1 amp Atorvastatin Calcium (Lipitor -) 40 mg GT HS [facility] Last Admin: 11/04/18 22:15 Dose: 40 mg Pantoprazole Sodium 80 mg/ (Sodium Chloride) 100 mls @ 10 mls/hr IVPB Q10H [facility] Last Admin: 11/05/18 03:21 Dose: 10 mls/hr Vancomycin HCl (Vancomycin (Pre-Docked)) 1,000 mg in 250 mls @ 166.667 mls/hr IVPB Q24H [facility]; Protocol Last Admin: 11/04/18 14:50 Dose: 166.667 mls/hr Piperacillin Sod/Tazobactam (Sod 4.5 gm/ Dextrose) 100 mls @ 200 mls/hr IVPB Q8H-IV [facility]; Protocol Last Admin: 11/05/18 10:30 Dose: 200 mls/hr Memantine (Namenda -) 10 mg GT BID [facility] Last Admin: 11/05/18 10:30 Dose: 10 mg Metoprolol Tartrate (Lopressor -) 12.5 mg GT BID [facility] Last Admin: 11/05/18 10:30 Dose: 12.5 mg 73 year old gentleman with hx of chronic respiratory failure on vent via trach, Alzheimers dementia (not verbal), GERD who presented from [place] with hypotension and noted to have acute on chronic anemia and PNA and found to have high BUN levels with normal Cr. #Elevated BUN/Azotemia #GI Bleed #PNA/Sepsis #Respiratory failure on Vent #Acute on Chronic Anemia #Leukocytoiss Azotemia stable, suspect no significant decrease in renal function would continue to monitor BUN/Cr daily while in hospital continue tube feeds with free water will sign off case at this time Please call if any questions or concerns Andres Mary DO
[2018-11-05 12:30] LABS: ANION GAP 6 MMOL/L (8-16); BLOOD UREA NITROGEN 35 mg/dL (7-18); CALCIUM 7.7 mg/dL (8.5-10.1); CHLORIDE 112 mmol/L (98-107); CO2 28 mmol/L (21-32); CREATININE 0.5 mg/dL (0.55-1.3); GLUCOSE,RANDOM 139 mg/dL (74-106); PHOSPHOROUS 1.8 mg/dL (2.5-4.9); SODIUM 146 mmol/L (136-145)
--- NOTE | 2018-11-05 12:57 | PN ---
Progress Note (short form) - Note Progress Note: PULMONARY Afebrile today Gen: vented, mildly tachypneic, cachectic Heart: RRR Lung: scattered rhonchi Abd: soft, nontender Ext: no edema Active Medications noted labs/notes/images/micro reviewed A/P Acute on Chronic Hypoxic and Hypercapneic Respiratory Failure Multilobar Pneumonia Sepsis Elevated LFTs Atrial Fibrillation Anemia r/o GI Bleed Dementia Failure to Thrive - continue antibiotics per ID - f/u cultures - inhaled bronchodilators - taper O2 to keep SpO2 >90% - monitor H/H - protonix - rate control - hold anticoagulation for now - continue volume assist control - not a candidate for weaning at this time due to poor mental status - DVT/GI prophylaxis Yen PHELAN MD
[2018-11-05] MEDS: VANCOMYCIN 1 GRAM (PRE-DOCKED) 1,000 MG/250 ML BAG IVPB SCH (15:45)
--- NOTE | 2018-11-05 15:58 | PN ---
Progress Note, Physician Chief Complaint: Hypotension Anemia Sepsis History of Present Illness: Previous notes and events reviewed awake NAD non-verbal, mechanically ventilated - Current Medication List Current Medications: Active Medications Acetaminophen (Ofirmev Injection -) 1,000 mg IVPB Q6H PRN PRN Reason: FEVER Last Admin: 11/04/18 19:56 Dose: 1,000 mg Albuterol Sulfate (Ventolin 0.083% Nebulizer Soln -) 1 amp NEB Q6H PRN PRN Reason: SHORT OF BREATH/WHEEZING Albuterol/Ipratropium (Duoneb -) 1 amp NEB RQID [facility] Last Admin: 11/05/18 12:04 Dose: 1 amp Atorvastatin Calcium (Lipitor -) 40 mg GT HS [facility] Last Admin: 11/04/18 22:15 Dose: 40 mg Pantoprazole Sodium 80 mg/ (Sodium Chloride) 100 mls @ 10 mls/hr IVPB Q10H [facility] Last Admin: 11/05/18 14:30 Dose: 10 mls/hr Vancomycin HCl (Vancomycin (Pre-Docked)) 1,000 mg in 250 mls @ 166.667 mls/hr IVPB Q24H [facility]; Protocol Last Admin: 11/05/18 15:45 Dose: 166.667 mls/hr Piperacillin Sod/Tazobactam (Sod 4.5 gm/ Dextrose) 100 mls @ 200 mls/hr IVPB Q8H-IV [facility]; Protocol Last Admin: 11/05/18 10:30 Dose: 200 mls/hr Memantine (Namenda -) 10 mg GT BID [facility] Last Admin: 11/05/18 10:30 Dose: 10 mg Metoprolol Tartrate (Lopressor -) 12.5 mg GT BID [facility] Last Admin: 11/05/18 10:30 Dose: 12.5 mg - Objective Vital Signs: Vital Signs Temperature 99.5 F 11/05/18 14:21 Pulse Rate 80 11/05/18 14:21 Respiratory Rate 16 11/05/18 14:21 Blood Pressure 124/70 11/05/18 14:21 O2 Sat by Pulse Oximetry (%) 98 11/05/18 11:07 Constitutional: Yes: Cachectic, Mild Distress Eyes: Yes: Conjunctiva Clear HENT: Yes: Atraumatic Neck: Yes: Other (trach) Cardiovascular: Yes: Regular Rate and Rhythm Respiratory: Yes: Mechanically Ventilated, Rhonchi Gastrointestinal: Yes: Normal Bowel Sounds, Soft, Other (PEG) Genitourinary: Yes: Incontinence Musculoskeletal: Yes: Muscle Weakness Edema: Yes Neurological: Yes: Pre-Existing Deficit Labs: CBC, BMP 11/03/18 06:00 11/05/18 10:35 INR, PTT INR 2.03 (0.83-1.09) H 11/01/18 04:55 Microbiology 11/02/18 12:00 Blood - Peripheral Venous Blood Culture - Preliminary NO GROWTH OBTAINED AFTER 72 HOURS, INCUBATION TO CONTINUE FOR 2 DAYS. 11/02/18 11:40 Blood - Peripheral Venous Blood Culture - Preliminary NO GROWTH OBTAINED AFTER 72 HOURS, INCUBATION TO CONTINUE FOR 2 DAYS. 11/02/18 16:00 Sputum - Endotrachea Suction/Ventilator Gram Stain - Final 11/02/18 16:00 Sputum - Endotrachea Suction/Ventilator Sputum Culture - Preliminary Pseudomonas Aeruginosa Serratia Marcescens Proteus Species 11/01/18 04:55 Blood - Peripheral Venous Blood Culture - Preliminary NO GROWTH OBTAINED AFTER 96 HOURS, INCUBATION TO CONTINUE FOR 1 DAYS. 11/01/18 04:55 Blood - Peripheral Venous Blood Culture - Preliminary Pending Organism 11/02/18 16:00 Urine For Antigen Detection Legionella Antigen - Final 11/02/18 16:00 Urine For Antigen Detection Streptococcus pneumoniae Antigen (M - Final 11/02/18 11:20 Urine - Urine Krishnamurthy Urine Culture - Final NO GROWTH OBTAINED 11/01/18 07:54 Urine - Urine Krishnamurthy Urine Culture - Final NO GROWTH OBTAINED Problem List - Problems (1) Acute and chronic respiratory failure with hypoxia Assessment/Plan: -pulm on board -mechanically ventilated -albuterol and duoneb PRN for SOB -keep SpO2 >90% Code(s): J96.21 - ACUTE AND CHRONIC RESPIRATORY FAILURE WITH HYPOXIA (2) Afib Assessment/Plan: -continue with metoprolol via GT Code(s): I48.91 - UNSPECIFIED ATRIAL FIBRILLATION (3) Anemia Assessment/Plan: -monitor Hg daily -transfuse if Hg <8.0 -stool OB positive--not canditate for GI intervention at present -current Hg 8.6 from 11/03 Code(s): D64.9 - ANEMIA, UNSPECIFIED Qualifiers: Anemia type: unspecified type Qualified Code(s): D64.9 - Anemia, unspecified (4) Elevated liver enzymes Assessment/Plan: -Abd US show mild fatty infiltration of liver vs hepatocellular disease -monitor LFT daily -current LFT: AST 75, ALT 115, Alk Phos 128 Code(s): R74.8 - ABNORMAL LEVELS OF OTHER SERUM ENZYMES (5) Pneumonia Assessment/Plan: -pulm and ID on board -continue with IV ABT -bronchodilators -keep SpO2 >90% -CXR show RUL PNA, left pleural effusion, left basilar airspace opacities Code(s): J18.9 - PNEUMONIA, UNSPECIFIED ORGANISM (6) Sepsis Assessment/Plan: -tylenol 650mg IVPB for temp >100F -ID on board -continue with IV vanco and zosyn -BC and UC neg -sputum culture positive -influenza A/B neg -urine legionella negative Code(s): A41.9 - SEPSIS, UNSPECIFIED ORGANISM Qualifiers: Sepsis type: sepsis due to unspecified organism Qualified Code(s): A41.9 - Sepsis, unspecified organism Assessment/Plan see problem list
--- NOTE | 2018-11-05 19:31 | PN ---
Progress Note (short form) - Note Progress Note: more awake Vital Signs Period Temp Pulse Resp BP Sys/Jesus Pulse Ox Last 24 Hr 98.0 F-100.2 F 78-96 16-22 103-129/54-70 97-99 cor-rrr lungs decreased bs at bases abd soft,nt ext no edema trach to vent CBC, BMP 11/03/18 06:00 11/05/18 10:35 Microbiology 11/02/18 12:00 Blood - Peripheral Venous Blood Culture - Preliminary NO GROWTH OBTAINED AFTER 72 HOURS, INCUBATION TO CONTINUE FOR 2 DAYS. 11/02/18 11:40 Blood - Peripheral Venous Blood Culture - Preliminary NO GROWTH OBTAINED AFTER 72 HOURS, INCUBATION TO CONTINUE FOR 2 DAYS. 11/02/18 16:00 Sputum - Endotrachea Suction/Ventilator Gram Stain - Final 11/02/18 16:00 Sputum - Endotrachea Suction/Ventilator Sputum Culture - Preliminary Pseudomonas Aeruginosa Serratia Marcescens Proteus Species 11/01/18 04:55 Blood - Peripheral Venous Blood Culture - Preliminary NO GROWTH OBTAINED AFTER 96 HOURS, INCUBATION TO CONTINUE FOR 1 DAYS. 11/01/18 04:55 Blood - Peripheral Venous Blood Culture - Preliminary Pending Organism 11/02/18 16:00 Urine For Antigen Detection Legionella Antigen - Final 11/02/18 16:00 Urine For Antigen Detection Streptococcus pneumoniae Antigen (M - Final 11/02/18 11:20 Urine - Urine Krishnamurthy Urine Culture - Final NO GROWTH OBTAINED 11/01/18 07:54 Urine - Urine Krishnamurthy Urine Culture - Final NO GROWTH OBTAINED Current Medications Acetaminophen (Ofirmev Injection -) 1,000 mg IVPB Q6H PRN PRN Reason: FEVER Last Admin: 11/04/18 19:56 Dose: 1,000 mg Albuterol Sulfate (Ventolin 0.083% Nebulizer Soln -) 1 amp NEB Q6H PRN PRN Reason: SHORT OF BREATH/WHEEZING Albuterol/Ipratropium (Duoneb -) 1 amp NEB RQID [facility] Last Admin: 11/05/18 16:58 Dose: 1 amp Atorvastatin Calcium (Lipitor -) 40 mg GT HS [facility] Last Admin: 11/04/18 22:15 Dose: 40 mg Pantoprazole Sodium 80 mg/ (Sodium Chloride) 100 mls @ 10 mls/hr IVPB Q10H [facility] Last Admin: 11/05/18 14:30 Dose: 10 mls/hr Vancomycin HCl (Vancomycin (Pre-Docked)) 1,000 mg in 250 mls @ 166.667 mls/hr IVPB Q24H [facility]; Protocol Last Admin: 11/05/18 15:45 Dose: 166.667 mls/hr Piperacillin Sod/Tazobactam (Sod 4.5 gm/ Dextrose) 100 mls @ 200 mls/hr IVPB Q8H-IV [facility]; Protocol Last Admin: 11/05/18 18:52 Dose: 200 mls/hr Memantine (Namenda -) 10 mg GT BID [facility] Last Admin: 11/05/18 10:30 Dose: 10 mg Metoprolol Tartrate (Lopressor -) 12.5 mg GT BID [facility] Last Admin: 11/05/18 10:30 Dose: 12.5 mg a/p fevers improved multilobar pneumonia repeat cxray d/c vancomycin continue zosyn abnl lfts- sono no stones, normal GB [id number] holding lipitor? history of afib-cardiology to evaluate Problem List - Problems (1) Acute and chronic respiratory failure with hypoxia Code(s): J96.21 - ACUTE AND CHRONIC RESPIRATORY FAILURE WITH HYPOXIA (2) Pneumonia Code(s): J18.9 - PNEUMONIA, UNSPECIFIED ORGANISM (3) Anemia Code(s): D64.9 - ANEMIA, UNSPECIFIED Qualifiers: Anemia type: unspecified type Qualified Code(s): D64.9 - Anemia, unspecified (4) Abnormal LFTs Code(s): R94.5 - ABNORMAL RESULTS OF LIVER FUNCTION STUDIES
[2018-11-05] MEDS: ATORVASTATIN CA 40 MG TABLET (FP) GT SCH (22:47)
[2018-11-05] MEDS ORDERED: POTASSIUM CHLORIDE ORAL LIQUID 20 MEQ/15 ML PO ONE (23:26)
[2018-11-06] MEDS: PANTOPRAZOLE SODIUM 80 MG in SODIUM CHLORIDE 100 ML IVPB SCH ×3 (01:00→23:02)
[2018-11-06] MEDS ORDERED: DEXTROSE 5%-WATER 100 ML IVPB ONE ×3 (01:12→16:48)
[2018-11-06] MEDS ORDERED: PIPERACILLIN/TAZOBACTAM 4.5 GM VIAL IVPB ONE ×3 (01:12→16:48)
[2018-11-06] MEDS: PIPERACILLIN/TAZOB 4.5 GM 4.5 GM in DEXTROSE 5%-WATER 100 ML IVPB SCH ×3 (02:01→17:04)
[2018-11-06 08:06] LABS: BASO % 0.2 % (0-2.0); HEMATOCRIT 27.3 % (35.4-49); LYMPH % 4.4 % (8-40); MCH 28.2 pg (25.7-33.7); MEAN CELL VOLUME 85.5 fl (80-96); MEAN PLT VOLUME 8.9 fl (7.5-11.1); MONO % 2.3 % (3.8-10.2); NEUT % 90.1 % (42.8-82.8); PLATELET COUNT 315 K/MM3 (134-434); RDW 19.2 % (11.9-15.9); WHITE BLOOD COUNT 11.9 K/mm3 (4.0-10.0)
[2018-11-06] MEDS: ALBUTEROL SO4 2.5/IPRATROPIUM 0.5 INH SOL 3 ML VIAL.NEB. NEB SCH ×4 (08:14→20:53)
[2018-11-06 08:18] LABS: ALBUMIN 1.3 g/dl (3.4-5.0); ALK PHOS 137 U/L (45-117); ANION GAP 5 MMOL/L (8-16); BILIRUBIN,TOTAL 0.4 mg/dL (0.2-1); BLOOD UREA NITROGEN 26 mg/dL (7-18); CALCIUM 7.6 mg/dL (8.5-10.1); CHLORIDE 112 mmol/L (98-107); CO2 30 mmol/L (21-32); CREATININE 0.4 mg/dL (0.55-1.3); GLUCOSE,RANDOM 137 mg/dL (74-106); POTASSIUM 3.6 mmol/L (3.5-5.1); SGOT/AST 56 U/L (15-37); SGPT/ALT 92 U/L (13-61); SODIUM 146 mmol/L (136-145); TOT PROT 6.1 g/dl (6.4-8.2)
[2018-11-06] MEDS: MEMANTINE HCL 10 MG TABLET (FP) GT SCH ×2 (10:30→22:58)
[2018-11-06] MEDS: METOPROLOL TARTRATE 25 MG TABLET (FP) GT SCH ×2 (10:31→22:58)
--- NOTE | 2018-11-06 12:10 | PN ---
Progress Note (short form) - Note Progress Note: resting on vent trach Vital Signs Period Temp Pulse Resp BP Sys/Jesus Pulse Ox Last 24 Hr 99 F-99.9 F 78-93 16-22 112-137/60-74 97-100 cor-rrr lungs decreased bs at bases abd-soft, nt ext no edema CBC, BMP 11/06/18 07:20 11/06/18 07:20 Microbiology 11/02/18 11:40 Blood - Peripheral Venous Blood Culture - Preliminary NO GROWTH OBTAINED AFTER 96 HOURS, INCUBATION TO CONTINUE FOR 1 DAYS. 11/02/18 16:00 Sputum - Endotrachea Suction/Ventilator Gram Stain - Final 11/02/18 16:00 Sputum - Endotrachea Suction/Ventilator Sputum Culture - Final Pseudomonas Aeruginosa Serratia Marcescens Proteus Mirabilis 11/01/18 04:55 Blood - Peripheral Venous Blood Culture - Final NO GROWTH AFTER 5 DAYS INCUBATION 11/02/18 12:00 Blood - Peripheral Venous Blood Culture - Preliminary NO GROWTH OBTAINED AFTER 72 HOURS, INCUBATION TO CONTINUE FOR 2 DAYS. 11/01/18 04:55 Blood - Peripheral Venous Blood Culture - Preliminary Pending Organism 11/02/18 16:00 Urine For Antigen Detection Legionella Antigen - Final 11/02/18 16:00 Urine For Antigen Detection Streptococcus pneumoniae Antigen (M - Final 11/02/18 11:20 Urine - Urine Krishnamurthy Urine Culture - Final NO GROWTH OBTAINED 11/01/18 07:54 Urine - Urine Krishnamurthy Urine Culture - Final NO GROWTH OBTAINED Current Medications Acetaminophen (Ofirmev Injection -) 1,000 mg IVPB Q6H PRN PRN Reason: FEVER Last Admin: 11/04/18 19:56 Dose: 1,000 mg Albuterol Sulfate (Ventolin 0.083% Nebulizer Soln -) 1 amp NEB Q6H PRN PRN Reason: SHORT OF BREATH/WHEEZING Albuterol/Ipratropium (Duoneb -) 1 amp NEB RQID [facility] Last Admin: 11/06/18 11:26 Dose: 1 amp Atorvastatin Calcium (Lipitor -) 40 mg GT HS [facility] Last Admin: 11/05/18 22:47 Dose: 40 mg Piperacillin Sod/Tazobactam (Sod 4.5 gm/ Dextrose) 100 mls @ 200 mls/hr IVPB Q8H-IV [facility]; Protocol Last Admin: 11/06/18 10:30 Dose: 200 mls/hr Pantoprazole Sodium 80 mg/ (Sodium Chloride) 100 mls @ 10 mls/hr IVPB Q10H [facility] Memantine (Namenda -) 10 mg GT BID [facility] Last Admin: 11/06/18 10:30 Dose: 10 mg Metoprolol Tartrate (Lopressor -) 12.5 mg GT BID [facility] Last Admin: 11/06/18 10:31 Dose: 12.5 mg a/p fevers improved, leukocytosis improved multilobar pneumonia repeat cxray continue zosyn day #5 abnl lfts- sono no stones, normal GB [id number] holding lipitor? history of afib-cardiology to evaluate suspect blood culture isolate is contaminant Problem List - Problems (1) Acute and chronic respiratory failure with hypoxia Code(s): J96.21 - ACUTE AND CHRONIC RESPIRATORY FAILURE WITH HYPOXIA (2) Pneumonia Code(s): J18.9 - PNEUMONIA, UNSPECIFIED ORGANISM (3) Anemia Code(s): D64.9 - ANEMIA, UNSPECIFIED Qualifiers: Anemia type: unspecified type Qualified Code(s): D64.9 - Anemia, unspecified (4) Abnormal LFTs Code(s): R94.5 - ABNORMAL RESULTS OF LIVER FUNCTION STUDIES
--- NOTE | 2018-11-06 14:10 | PN ---
Progress Note (short form) - Note Progress Note: PULMONARY Vented on volume assist control. No fevers recorded. Saturating well on 40% FiO2. Vital Signs Period Temp Pulse Resp BP Sys/Jesus Pulse Ox Last 24 Hr 99 F-99.9 F 78-93 16-22 112-137/60-74 97-100 Gen: vented, mildly tachypneic, cachectic Heart: RRR Lung: scattered rhonchi Abd: soft, nontender Ext: no edema CBC, BMP 11/06/18 07:20 11/06/18 07:20 Active Medications Acetaminophen (Ofirmev Injection -) 1,000 mg IVPB Q6H PRN PRN Reason: FEVER Last Admin: 11/04/18 19:56 Dose: 1,000 mg Albuterol Sulfate (Ventolin 0.083% Nebulizer Soln -) 1 amp NEB Q6H PRN PRN Reason: SHORT OF BREATH/WHEEZING Albuterol/Ipratropium (Duoneb -) 1 amp NEB RQID [facility] Last Admin: 11/06/18 11:26 Dose: 1 amp Atorvastatin Calcium (Lipitor -) 40 mg GT HS [facility] Last Admin: 11/05/18 22:47 Dose: 40 mg Piperacillin Sod/Tazobactam (Sod 4.5 gm/ Dextrose) 100 mls @ 200 mls/hr IVPB Q8H-IV [facility]; Protocol Last Admin: 11/06/18 10:30 Dose: 200 mls/hr Pantoprazole Sodium 80 mg/ (Sodium Chloride) 100 mls @ 10 mls/hr IVPB Q10H [facility] Last Admin: 11/06/18 12:09 Dose: 10 mls/hr Memantine (Namenda -) 10 mg GT BID [facility] Last Admin: 11/06/18 10:30 Dose: 10 mg Metoprolol Tartrate (Lopressor -) 12.5 mg GT BID [facility] Last Admin: 11/06/18 10:31 Dose: 12.5 mg A/P Acute on Chronic Hypoxic and Hypercapneic Respiratory Failure Multilobar Pneumonia Sepsis Elevated LFTs Atrial Fibrillation Anemia r/o GI Bleed Dementia Failure to Thrive - continue antibiotics per ID - inhaled bronchodilators - taper O2 to keep SpO2 >90% - monitor H/H - protonix - rate control - continue volume assist control - not a candidate for weaning at this time due to poor mental status - DVT/GI prophylaxis Problem List - Problems (1) Acute and chronic respiratory failure with hypoxia Code(s): J96.21 - ACUTE AND CHRONIC RESPIRATORY FAILURE WITH HYPOXIA (2) Pneumonia Code(s): J18.9 - PNEUMONIA, UNSPECIFIED ORGANISM
[2018-11-06] MEDS ORDERED: ACETAMINOPHEN 160 MG/5 ML *Children Solution PO PRN (14:32)
--- NOTE | 2018-11-06 14:32 | PN ---
Progress Note, Physician Chief Complaint: Anemia Sepsis History of Present Illness: NAD Awake On IV abx for pneumonia Final cultures pending Sen by ID - Current Medication List Current Medications: Active Medications Acetaminophen (Ofirmev Injection -) 1,000 mg IVPB Q6H PRN PRN Reason: FEVER Last Admin: 11/04/18 19:56 Dose: 1,000 mg Albuterol Sulfate (Ventolin 0.083% Nebulizer Soln -) 1 amp NEB Q6H PRN PRN Reason: SHORT OF BREATH/WHEEZING Albuterol/Ipratropium (Duoneb -) 1 amp NEB RQID [facility] Last Admin: 11/06/18 11:26 Dose: 1 amp Atorvastatin Calcium (Lipitor -) 40 mg GT HS [facility] Last Admin: 11/05/18 22:47 Dose: 40 mg Piperacillin Sod/Tazobactam (Sod 4.5 gm/ Dextrose) 100 mls @ 200 mls/hr IVPB Q8H-IV [facility]; Protocol Last Admin: 11/06/18 10:30 Dose: 200 mls/hr Pantoprazole Sodium 80 mg/ (Sodium Chloride) 100 mls @ 10 mls/hr IVPB Q10H [facility] Last Admin: 11/06/18 12:09 Dose: 10 mls/hr Memantine (Namenda -) 10 mg GT BID [facility] Last Admin: 11/06/18 10:30 Dose: 10 mg Metoprolol Tartrate (Lopressor -) 12.5 mg GT BID [facility] Last Admin: 11/06/18 10:31 Dose: 12.5 mg - Objective Vital Signs: Vital Signs Temperature 99.9 F H 11/06/18 06:00 Pulse Rate 88 11/06/18 10:06 Respiratory Rate 20 11/06/18 13:55 Blood Pressure 137/74 11/06/18 06:00 O2 Sat by Pulse Oximetry (%) 100 11/06/18 10:06 Constitutional: Yes: Well Nourished, No Distress, Calm Cardiovascular: Yes: Regular Rate and Rhythm Respiratory: Yes: Mechanically Ventilated Gastrointestinal: Yes: WNL Musculoskeletal: Yes: Other (generalized atrophy) Extremities: Yes: WNL Edema: No Peripheral Pulses WNL: Yes Neurological: Yes: Alert, Pre-Existing Deficit Psychiatric: Yes: Alert Labs: CBC, BMP 11/06/18 07:20 11/06/18 07:20 INR, PTT INR 2.03 (0.83-1.09) H 11/01/18 04:55 Problem List - Problems (1) GI bleed Assessment/Plan: -seen by GI -Guaiac positive -poor candidate for nay intervention at this time Code(s): K92.2 - GASTROINTESTINAL HEMORRHAGE, UNSPECIFIED (2) Abnormal LFTs Assessment/Plan: -2/2 to IV abx -monitor trend Code(s): R94.5 - ABNORMAL RESULTS OF LIVER FUNCTION STUDIES (3) Acute and chronic respiratory failure with hypoxia Assessment/Plan: -pulmonary on board -mechanically ventilated -Bronchodilators -keep SpO2 >90% Code(s): J96.21 - ACUTE AND CHRONIC RESPIRATORY FAILURE WITH HYPOXIA (4) Afib Assessment/Plan: -chronic -rate controlled -Continue BB Code(s): I48.91 - UNSPECIFIED ATRIAL FIBRILLATION (5) Anemia Assessment/Plan: -H/H stable -monitor trend -transfuse only if Hg <7.0 to avoid fluid overload -stool OB positive--not canditate for GI intervention at present -Seen by GI Code(s): D64.9 - ANEMIA, UNSPECIFIED Qualifiers: Anemia type: unspecified type Qualified Code(s): D64.9 - Anemia, unspecified (6) Pneumonia Assessment/Plan: -pulm and ID on board -continue with IV ABX -bronchodilators -keep SpO2 >90% -CXR show RUL PNA, left pleural effusion, left basilar airspace opacities Code(s): J18.9 - PNEUMONIA, UNSPECIFIED ORGANISM (7) Sepsis Assessment/Plan: -tylenol 650mg Q4H PRN via GT -ID on board -continue with IV vanco and zosyn -BC and UC neg -sputum culture positive -influenza A/B neg -urine legionella negative Code(s): A41.9 - SEPSIS, UNSPECIFIED ORGANISM Qualifiers: Sepsis type: sepsis due to unspecified organism Qualified Code(s): A41.9 - Sepsis, unspecified organism Assessment/Plan see problem list Tube feeding adjusted
[2018-11-06] MEDS ORDERED: ACETAMINOPHEN 650 MG/20.3 ML ORAL SOLUTION (CUPS) PO PRN (14:38)
[2018-11-06] MEDS ORDERED: PT OWN MED DRAWER 7, Y5N ONE (22:14)
[2018-11-06] MEDS: ATORVASTATIN CA 40 MG TABLET (FP) GT SCH (22:58)
[2018-11-07] MEDS ORDERED: DEXTROSE 5%-WATER 100 ML IVPB ONE ×3 (00:26→16:54)
[2018-11-07] MEDS ORDERED: PIPERACILLIN/TAZOBACTAM 4.5 GM VIAL IVPB ONE ×3 (00:26→16:54)
[2018-11-07] MEDS: PIPERACILLIN/TAZOB 4.5 GM 4.5 GM in DEXTROSE 5%-WATER 100 ML IVPB SCH ×3 (02:15→17:19)
[2018-11-07] MEDS ORDERED: PT OWN MED DRAWER 7, Y5N ONE ×2 (06:02→06:46)
[2018-11-07] MEDS: PANTOPRAZOLE SODIUM 80 MG in SODIUM CHLORIDE 100 ML IVPB SCH ×3 (06:36→17:29)
[2018-11-07] MEDS ORDERED: INSULIN (NOVOLOG) ASPART 100 UNITS/ML 10ML VIAL ONE (06:46)
[2018-11-07] MEDS: ALBUTEROL SO4 2.5/IPRATROPIUM 0.5 INH SOL 3 ML VIAL.NEB. NEB SCH ×4 (07:59→20:45)
[2018-11-07] MEDS: METOPROLOL TARTRATE 25 MG TABLET (FP) GT SCH ×2 (09:10→21:22)
[2018-11-07] MEDS: MEMANTINE HCL 10 MG TABLET (FP) GT SCH ×2 (09:10→21:22)
--- NOTE | 2018-11-07 11:26 | PN ---
Progress Note, Physician Chief Complaint: Anemia Sepsis History of Present Illness: NAD Awake On IV abx for pneumonia Final cultures pending Seen by ID - Current Medication List Current Medications: Active Medications Acetaminophen (Tylenol Oral Solution -) 650 mg PO Q4H PRN PRN Reason: FEVER Albuterol Sulfate (Ventolin 0.083% Nebulizer Soln -) 1 amp NEB Q6H PRN PRN Reason: SHORT OF BREATH/WHEEZING Albuterol/Ipratropium (Duoneb -) 1 amp NEB RQID [facility] Last Admin: 11/07/18 11:20 Dose: 1 amp Atorvastatin Calcium (Lipitor -) 40 mg GT HS [facility] Last Admin: 11/06/18 22:58 Dose: 40 mg Piperacillin Sod/Tazobactam (Sod 4.5 gm/ Dextrose) 100 mls @ 200 mls/hr IVPB Q8H-IV [facility]; Protocol Last Admin: 11/07/18 09:10 Dose: 200 mls/hr Pantoprazole Sodium 80 mg/ (Sodium Chloride) 100 mls @ 10 mls/hr IVPB Q10H [facility] Last Admin: 11/07/18 08:18 Dose: 10 mls/hr Memantine (Namenda -) 10 mg GT BID [facility] Last Admin: 11/07/18 09:10 Dose: 10 mg Metoprolol Tartrate (Lopressor -) 12.5 mg GT BID [facility] Last Admin: 11/07/18 09:10 Dose: 12.5 mg - Objective Vital Signs: Vital Signs Temperature 98.1 F 11/07/18 10:00 Pulse Rate 92 H 11/07/18 10:00 Respiratory Rate 20 11/07/18 10:00 Blood Pressure 107/68 11/07/18 10:00 O2 Sat by Pulse Oximetry (%) 98 11/07/18 09:57 Constitutional: Yes: Well Nourished, No Distress, Calm Cardiovascular: Yes: Regular Rate and Rhythm Respiratory: Yes: Mechanically Ventilated Gastrointestinal: Yes: Normal Bowel Sounds, Soft Genitourinary: Yes: Incontinence Musculoskeletal: Yes: Muscle Weakness Edema: Yes Edema: LLE: 2+, RLE: 2+ Peripheral Pulses WNL: Yes Neurological: Yes: Pre-Existing Deficit Psychiatric: Yes: Alert Labs: CBC, BMP 11/06/18 07:20 11/06/18 07:20 INR, PTT INR 2.03 (0.83-1.09) H 11/01/18 04:55 Problem List - Problems (1) GI bleed Assessment/Plan: -seen by GI -Guaiac positive -poor candidate for nay intervention at this time Code(s): K92.2 - GASTROINTESTINAL HEMORRHAGE, UNSPECIFIED (2) Abnormal LFTs Assessment/Plan: -2/2 to IV abx -monitor trend Code(s): R94.5 - ABNORMAL RESULTS OF LIVER FUNCTION STUDIES (3) Acute and chronic respiratory failure with hypoxia Assessment/Plan: -pulmonary on board -mechanically ventilated -Bronchodilators -keep SpO2 >90% Code(s): J96.21 - ACUTE AND CHRONIC RESPIRATORY FAILURE WITH HYPOXIA (4) Afib Assessment/Plan: -chronic -rate controlled -Continue BB Code(s): I48.91 - UNSPECIFIED ATRIAL FIBRILLATION (5) Anemia Code(s): D64.9 - ANEMIA, UNSPECIFIED Qualifiers: Anemia type: unspecified type Qualified Code(s): D64.9 - Anemia, unspecified (6) Pneumonia Assessment/Plan: -pulm and ID on board -continue with IV ABX -bronchodilators -keep SpO2 >90% -CXR show RUL PNA, left pleural effusion, left basilar airspace opacities Code(s): J18.9 - PNEUMONIA, UNSPECIFIED ORGANISM (7) Sepsis Assessment/Plan: -tylenol 650mg Q4H PRN via GT -ID on board -continue with IV vanco and zosyn -BC and UC neg -sputum culture positive -influenza A/B neg -urine legionella negative Code(s): A41.9 - SEPSIS, UNSPECIFIED ORGANISM Qualifiers: Sepsis type: sepsis due to unspecified organism Qualified Code(s): A41.9 - Sepsis, unspecified organism Assessment/Plan see problem list
--- NOTE | 2018-11-07 11:40 | PN ---
Progress Note (short form) - Note Progress Note: PULMONARY Vented on volume assist control. Low grade fever this AM. Saturating well on 40 % FiO2. Vital Signs Period Temp Pulse Resp BP Sys/Jesus Pulse Ox Last 24 Hr 98.1 F-100.5 F 81-97 20-22 107-122/61-74 98-99 Gen: vented, mildly tachypneic, cachectic Heart: RRR Lung: scattered rhonchi Abd: soft, nontender Ext: no edema CBC, BMP 11/06/18 07:20 11/06/18 07:20 Active Medications Acetaminophen (Tylenol Oral Solution -) 650 mg PO Q4H PRN PRN Reason: FEVER Albuterol Sulfate (Ventolin 0.083% Nebulizer Soln -) 1 amp NEB Q6H PRN PRN Reason: SHORT OF BREATH/WHEEZING Albuterol/Ipratropium (Duoneb -) 1 amp NEB RQID [facility] Last Admin: 11/07/18 11:20 Dose: 1 amp Atorvastatin Calcium (Lipitor -) 40 mg GT HS [facility] Last Admin: 11/06/18 22:58 Dose: 40 mg Piperacillin Sod/Tazobactam (Sod 4.5 gm/ Dextrose) 100 mls @ 200 mls/hr IVPB Q8H-IV [facility]; Protocol Last Admin: 11/07/18 09:10 Dose: 200 mls/hr Pantoprazole Sodium 80 mg/ (Sodium Chloride) 100 mls @ 10 mls/hr IVPB Q10H [facility] Last Admin: 11/07/18 08:18 Dose: 10 mls/hr Memantine (Namenda -) 10 mg GT BID [facility] Last Admin: 11/07/18 09:10 Dose: 10 mg Metoprolol Tartrate (Lopressor -) 12.5 mg GT BID [facility] Last Admin: 11/07/18 09:10 Dose: 12.5 mg A/P Acute on Chronic Hypoxic and Hypercapneic Respiratory Failure Multilobar Pneumonia Sepsis Elevated LFTs Atrial Fibrillation Anemia r/o GI Bleed Dementia Failure to Thrive - continue antibiotics per ID - inhaled bronchodilators - taper O2 to keep SpO2 >90% - monitor H/H - protonix - rate control - continue volume assist control - not a candidate for weaning at this time due to poor mental status - DVT/GI prophylaxis Problem List - Problems (1) Acute and chronic respiratory failure with hypoxia Code(s): J96.21 - ACUTE AND CHRONIC RESPIRATORY FAILURE WITH HYPOXIA (2) Pneumonia Code(s): J18.9 - PNEUMONIA, UNSPECIFIED ORGANISM
[2018-11-07] MEDS: ATORVASTATIN CA 40 MG TABLET (FP) GT SCH (21:22)
[2018-11-08] MEDS ORDERED: PIPERACILLIN/TAZOBACTAM 4.5 GM VIAL IVPB ONE ×3 (00:42→17:41)
[2018-11-08] MEDS ORDERED: DEXTROSE 5%-WATER 100 ML IVPB ONE ×3 (00:42→17:41)
[2018-11-08] MEDS: PIPERACILLIN/TAZOB 4.5 GM 4.5 GM in DEXTROSE 5%-WATER 100 ML IVPB SCH ×3 (01:21→18:06)
[2018-11-08] MEDS: PANTOPRAZOLE SODIUM 80 MG in SODIUM CHLORIDE 100 ML IVPB SCH ×5 (01:57→22:53)
[2018-11-08] MEDS: ALBUTEROL SO4 2.5/IPRATROPIUM 0.5 INH SOL 3 ML VIAL.NEB. NEB SCH ×4 (07:57→21:56)
[2018-11-08] MEDS: METOPROLOL TARTRATE 25 MG TABLET (FP) GT SCH ×2 (10:47→21:27)
[2018-11-08] MEDS: MEMANTINE HCL 10 MG TABLET (FP) GT SCH ×2 (10:48→21:27)
--- NOTE | 2018-11-08 11:39 | PN ---
Progress Note (short form) - Note Progress Note: Vented on volume assist control. No fever. Saturating well on 40% FiO2. Intake & Output 11/05/18 11/06/18 11/07/18 11/08/18 23:59 23:59 23:59 23:59 Intake Total 2850 2370 2326 1120 Balance 2850 2370 2326 1120 Weight 128 lb Last Vital Signs Temp Pulse Resp BP Pulse Ox 98.6 F 106 H 24 H 123/67 96 11/08/18 06:00 11/08/18 10:10 11/08/18 09:59 11/08/18 06:00 11/08/18 10:10 Active Medications Acetaminophen (Tylenol Oral Solution -) 650 mg PO Q4H PRN PRN Reason: FEVER Albuterol Sulfate (Ventolin 0.083% Nebulizer Soln -) 1 amp NEB Q6H PRN PRN Reason: SHORT OF BREATH/WHEEZING Albuterol/Ipratropium (Duoneb -) 1 amp NEB RQID [facility] Last Admin: 11/08/18 11:13 Dose: 1 amp Atorvastatin Calcium (Lipitor -) 40 mg GT HS [facility] Last Admin: 11/07/18 21:22 Dose: 40 mg Piperacillin Sod/Tazobactam (Sod 4.5 gm/ Dextrose) 100 mls @ 200 mls/hr IVPB Q8H-IV [facility]; Protocol Last Admin: 11/08/18 10:47 Dose: 200 mls/hr Pantoprazole Sodium 80 mg/ (Sodium Chloride) 100 mls @ 10 mls/hr IVPB Q10H [facility] Last Admin: 11/08/18 03:12 Dose: Not Given Memantine (Namenda -) 10 mg GT BID [facility] Last Admin: 11/08/18 10:48 Dose: 10 mg Metoprolol Tartrate (Lopressor -) 12.5 mg GT BID [facility] Last Admin: 11/08/18 10:47 Dose: 12.5 mg Gen: vented, cachectic, Trach intact Heart: RRR Lung: scattered rhonchi Abd: soft, nontender Ext: no edema Problem List - Problems (1) Acute and chronic respiratory failure with hypoxia Code(s): J96.21 - ACUTE AND CHRONIC RESPIRATORY FAILURE WITH HYPOXIA (2) Pneumonia Code(s): J18.9 - PNEUMONIA, UNSPECIFIED ORGANISM A/P Acute on Chronic Hypoxic and Hypercapneic Respiratory Failure Multilobar Pneumonia Sepsis Elevated LFTs Atrial Fibrillation Anemia r/o GI Bleed Dementia Failure to Thrive - Antibiotics per ID - inhaled bronchodilators - taper O2 to keep SpO2 >90% - monitor H/H - protonix - Rate control - Continue volume assist control - Not a candidate for weaning at this time due to poor mental status - DVT/GI prophylaxis Dr Galloway
[2018-11-08 16:47] VITALS: BMI 21.9
--- NOTE | 2018-11-08 17:33 | PN ---
Progress Note, Physician Chief Complaint: Hypotension Anemia Sepsis History of Present Illness: Previous notes and events reviewed awake NAD non-verbal, mechanically ventilated - Current Medication List Current Medications: Active Medications Acetaminophen (Tylenol Oral Solution -) 650 mg PO Q4H PRN PRN Reason: FEVER Albuterol Sulfate (Ventolin 0.083% Nebulizer Soln -) 1 amp NEB Q6H PRN PRN Reason: SHORT OF BREATH/WHEEZING Albuterol/Ipratropium (Duoneb -) 1 amp NEB RQID [facility] Last Admin: 11/08/18 11:13 Dose: 1 amp Atorvastatin Calcium (Lipitor -) 40 mg GT HS [facility] Last Admin: 11/07/18 21:22 Dose: 40 mg Piperacillin Sod/Tazobactam (Sod 4.5 gm/ Dextrose) 100 mls @ 200 mls/hr IVPB Q8H-IV [facility]; Protocol Last Admin: 11/08/18 10:47 Dose: 200 mls/hr Pantoprazole Sodium 80 mg/ (Sodium Chloride) 100 mls @ 10 mls/hr IVPB Q10H [facility] Last Admin: 11/08/18 12:16 Dose: 10 mls/hr Memantine (Namenda -) 10 mg GT BID [facility] Last Admin: 11/08/18 10:48 Dose: 10 mg Metoprolol Tartrate (Lopressor -) 12.5 mg GT BID [facility] Last Admin: 11/08/18 10:47 Dose: 12.5 mg - Objective Vital Signs: Vital Signs Temperature 98.8 F 11/08/18 14:48 Pulse Rate 74 11/08/18 14:48 Respiratory Rate 22 H 11/08/18 14:48 Blood Pressure 125/77 11/08/18 14:48 O2 Sat by Pulse Oximetry (%) 96 11/08/18 10:10 Constitutional: Yes: No Distress, Calm Eyes: Yes: Conjunctiva Clear HENT: Yes: Atraumatic Neck: Yes: Other (trach) Cardiovascular: Yes: Regular Rate and Rhythm Respiratory: Yes: Mechanically Ventilated, Rhonchi Gastrointestinal: Yes: Normal Bowel Sounds, Soft, Other (non tender, PEG) Genitourinary: Yes: Incontinence Musculoskeletal: Yes: Muscle Weakness Extremities: Yes: WNL Edema: Yes (LUE) Neurological: Yes: Alert, Pre-Existing Deficit Psychiatric: Yes: Alert Labs: CBC, BMP 11/06/18 07:20 11/06/18 07:20 INR, PTT INR 2.03 (0.83-1.09) H 11/01/18 04:55 Microbiology 11/01/18 04:55 Blood - Peripheral Venous Blood Culture - Preliminary Pending Organism 11/02/18 12:00 Blood - Peripheral Venous Blood Culture - Final NO GROWTH AFTER 5 DAYS INCUBATION 11/02/18 11:40 Blood - Peripheral Venous Blood Culture - Final NO GROWTH AFTER 5 DAYS INCUBATION 11/02/18 16:00 Sputum - Endotrachea Suction/Ventilator Gram Stain - Final 11/02/18 16:00 Sputum - Endotrachea Suction/Ventilator Sputum Culture - Final Pseudomonas Aeruginosa Serratia Marcescens Proteus Mirabilis 11/01/18 04:55 Blood - Peripheral Venous Blood Culture - Final NO GROWTH AFTER 5 DAYS INCUBATION 11/02/18 16:00 Urine For Antigen Detection Legionella Antigen - Final 11/02/18 16:00 Urine For Antigen Detection Streptococcus pneumoniae Antigen (M - Final 11/02/18 11:20 Urine - Urine Krishnamurthy Urine Culture - Final NO GROWTH OBTAINED 11/01/18 07:54 Urine - Urine Krishnamurthy Urine Culture - Final NO GROWTH OBTAINED Problem List - Problems (1) Acute and chronic respiratory failure with hypoxia Assessment/Plan: -pulm on board -mechanically ventilated -albuterol and duoneb PRN for SOB -keep SpO2 >90% Code(s): J96.21 - ACUTE AND CHRONIC RESPIRATORY FAILURE WITH HYPOXIA (2) Afib Assessment/Plan: -continue with metoprolol via GT Code(s): I48.91 - UNSPECIFIED ATRIAL FIBRILLATION (3) Anemia Assessment/Plan: -monitor Hg daily -transfuse if Hg <8.0 -stool OB positive--not canditate for GI intervention at present -current Hg 9.0 Code(s): D64.9 - ANEMIA, UNSPECIFIED Qualifiers: Anemia type: unspecified type Qualified Code(s): D64.9 - Anemia, unspecified (4) Elevated liver enzymes Assessment/Plan: -Abd US show mild fatty infiltration of liver vs hepatocellular disease -monitor LFT daily -current LFT: AST 56, ALT 92, Alk Phos 137 Code(s): R74.8 - ABNORMAL LEVELS OF OTHER SERUM ENZYMES (5) Pneumonia Assessment/Plan: -pulm and ID on board -continue with IV ABT -bronchodilators -keep SpO2 >90% -repeat CXR show bilateral infiltrates mainly in the RUL and L base, left pleural fluid, no significant change from 11/01/18 Code(s): J18.9 - PNEUMONIA, UNSPECIFIED ORGANISM (6) Sepsis Assessment/Plan: -ID on board -continue with IV zosyn -BC and UC neg -sputum culture positive -influenza A/B neg -urine legionella negative -WBC 11.9 and afebrile Code(s): A41.9 - SEPSIS, UNSPECIFIED ORGANISM Qualifiers: Sepsis type: sepsis due to unspecified organism Qualified Code(s): A41.9 - Sepsis, unspecified organism Assessment/Plan see problem list dvt ppx to begin discharge planning for return to [facility] if WBC continue with downtrend
[2018-11-08] MEDS: ATORVASTATIN CA 40 MG TABLET (FP) GT SCH (21:27)
[2018-11-09] MEDS ORDERED: PIPERACILLIN/TAZOBACTAM 4.5 GM VIAL IVPB ONE ×3 (00:29→17:02)
[2018-11-09] MEDS ORDERED: DEXTROSE 5%-WATER 100 ML IVPB ONE ×3 (00:29→17:02)
[2018-11-09] MEDS: PIPERACILLIN/TAZOB 4.5 GM 4.5 GM in DEXTROSE 5%-WATER 100 ML IVPB SCH ×2 (01:29→10:09)
[2018-11-09 07:46] LABS: ALBUMIN 1.3 g/dl (3.4-5.0); ALK PHOS 116 U/L (45-117); ANION GAP 5 MMOL/L (8-16); BILIRUBIN,TOTAL 0.3 mg/dL (0.2-1); BLOOD UREA NITROGEN 23 mg/dL (7-18); CALCIUM 7.5 mg/dL (8.5-10.1); CHLORIDE 110 mmol/L (98-107); CO2 30 mmol/L (21-32); CREATININE 0.4 mg/dL (0.55-1.3); GLUCOSE,RANDOM 97 mg/dL (74-106); POTASSIUM 3.4 mmol/L (3.5-5.1); SGOT/AST 44 U/L (15-37); SGPT/ALT 70 U/L (13-61); SODIUM 144 mmol/L (136-145); TOT PROT 5.5 g/dl (6.4-8.2)
[2018-11-09] MEDS: PANTOPRAZOLE SODIUM 80 MG in SODIUM CHLORIDE 100 ML IVPB SCH ×2 (08:14→18:17)
[2018-11-09] MEDS: ALBUTEROL SO4 2.5/IPRATROPIUM 0.5 INH SOL 3 ML VIAL.NEB. NEB SCH ×4 (08:51→20:46)
[2018-11-09 09:01] LABS: HEMATOCRIT 24.7 % (35.4-49); MCH 27.9 pg (25.7-33.7); MCHC 32.5 g/dl (32.0-35.9); MEAN CELL VOLUME 85.9 fl (80-96); MEAN PLT VOLUME 10.1 fl (7.5-11.1); PLATELET COUNT 255 K/MM3 (134-434); RBC 2.87 M/mm3 (4.00-5.60); RDW 20.2 % (11.9-15.9); WHITE BLOOD COUNT 12.8 K/mm3 (4.0-10.0)
[2018-11-09] MEDS: METOPROLOL TARTRATE 25 MG TABLET (FP) GT SCH ×2 (10:11→21:30)
[2018-11-09] MEDS: MEMANTINE HCL 10 MG TABLET (FP) GT SCH ×2 (10:11→21:30)
[2018-11-09] MEDS ORDERED: POTASSIUM CHLORIDE ORAL LIQUID 20 MEQ/15 ML GT ONE (10:27)
--- NOTE | 2018-11-09 11:43 | PN ---
Progress Note (short form) - Note Progress Note: Vented on volume assist control. No fever. Saturating well on 40% FiO2. Intake & Output 11/06/18 11/07/18 11/08/18 11/09/18 23:59 23:59 23:59 23:59 Intake Total 2370 2326 2270 1050 Balance 2370 2326 2270 1050 Weight 128 lb Last Vital Signs Temp Pulse Resp BP Pulse Ox 98 F 80 22 H 125/67 95 11/09/18 10:00 11/09/18 10:00 11/09/18 10:00 11/09/18 10:00 11/09/18 08:52 Active Medications Acetaminophen (Tylenol Oral Solution -) 650 mg PO Q4H PRN PRN Reason: FEVER Albuterol Sulfate (Ventolin 0.083% Nebulizer Soln -) 1 amp NEB Q6H PRN PRN Reason: SHORT OF BREATH/WHEEZING Albuterol/Ipratropium (Duoneb -) 1 amp NEB RQID [facility] Last Admin: 11/09/18 08:51 Dose: 1 amp Atorvastatin Calcium (Lipitor -) 40 mg GT HS [facility] Last Admin: 11/08/18 21:27 Dose: 40 mg Piperacillin Sod/Tazobactam (Sod 4.5 gm/ Dextrose) 100 mls @ 200 mls/hr IVPB Q8H-IV [facility]; Protocol Last Admin: 11/09/18 10:09 Dose: 200 mls/hr Pantoprazole Sodium 80 mg/ (Sodium Chloride) 100 mls @ 10 mls/hr IVPB Q10H [facility] Last Admin: 11/09/18 08:14 Dose: 10 mls/hr Memantine (Namenda -) 10 mg GT BID [facility] Last Admin: 11/09/18 10:11 Dose: 10 mg Metoprolol Tartrate (Lopressor -) 12.5 mg GT BID [facility] Last Admin: 11/09/18 10:11 Dose: 12.5 mg Gen: vented, cachectic, Trach intact Heart: RRR Lung: scattered rhonchi Abd: soft, nontender Ext: no edema Laboratory Results - last 24 hr 11/09/18 11/09/18 06:05 06:05 WBC 12.8 H RBC 2.87 L Hgb 8.0 L Hct 24.7 L MCV 85.9 MCH 27.9 MCHC 32.5 RDW 20.2 H Sodium 144 Potassium 3.4 L Chloride 110 H Carbon Dioxide 30 Anion Gap 5 L BUN 23 H Creatinine 0.4 L Creat Clearance w eGFR 210.28 Random Glucose 97 Calcium 7.5 L Total Bilirubin 0.3 AST 44 H ALT 70 H Alkaline Phosphatase 116 Total Protein 5.5 L Albumin 1.3 L Problem List - Problems (1) Acute and chronic respiratory failure with hypoxia Code(s): J96.21 - ACUTE AND CHRONIC RESPIRATORY FAILURE WITH HYPOXIA (2) Pneumonia Code(s): J18.9 - PNEUMONIA, UNSPECIFIED ORGANISM A/P Acute on Chronic Hypoxic and Hypercapneic Respiratory Failure Multilobar Pneumonia Sepsis Elevated LFTs Atrial Fibrillation Anemia r/o GI Bleed Dementia Failure to Thrive - Antibiotics per ID - inhaled bronchodilators - monitor H/H - PPI - Rate control - Continue volume assist control - Not a candidate for weaning at this time due to poor mental status - DVT/GI prophylaxis Dr Galloway
--- NOTE | 2018-11-09 12:18 | PN ---
Progress Note, Physician Chief Complaint: Hypotension Anemia Sepsis History of Present Illness: Previous notes and events reviewed awake NAD non-verbal, mechanically ventilated - Current Medication List Current Medications: Active Medications Acetaminophen (Tylenol Oral Solution -) 650 mg PO Q4H PRN PRN Reason: FEVER Albuterol Sulfate (Ventolin 0.083% Nebulizer Soln -) 1 amp NEB Q6H PRN PRN Reason: SHORT OF BREATH/WHEEZING Albuterol/Ipratropium (Duoneb -) 1 amp NEB RQID [facility] Last Admin: 11/09/18 08:51 Dose: 1 amp Atorvastatin Calcium (Lipitor -) 40 mg GT HS [facility] Last Admin: 11/08/18 21:27 Dose: 40 mg Piperacillin Sod/Tazobactam (Sod 4.5 gm/ Dextrose) 100 mls @ 200 mls/hr IVPB Q8H-IV [facility]; Protocol Last Admin: 11/09/18 10:09 Dose: 200 mls/hr Pantoprazole Sodium 80 mg/ (Sodium Chloride) 100 mls @ 10 mls/hr IVPB Q10H [facility] Last Admin: 11/09/18 08:14 Dose: 10 mls/hr Memantine (Namenda -) 10 mg GT BID [facility] Last Admin: 11/09/18 10:11 Dose: 10 mg Metoprolol Tartrate (Lopressor -) 12.5 mg GT BID [facility] Last Admin: 11/09/18 10:11 Dose: 12.5 mg - Objective Vital Signs: Vital Signs Temperature 98 F 11/09/18 10:00 Pulse Rate 80 11/09/18 10:00 Respiratory Rate 22 H 11/09/18 10:00 Blood Pressure 125/67 11/09/18 10:00 O2 Sat by Pulse Oximetry (%) 95 11/09/18 08:52 Constitutional: Yes: No Distress, Cachectic Eyes: Yes: Conjunctiva Clear HENT: Yes: Atraumatic Neck: Yes: Other (trach) Cardiovascular: Yes: Regular Rate and Rhythm Respiratory: Yes: Mechanically Ventilated, Rhonchi Gastrointestinal: Yes: Normal Bowel Sounds, Soft, Other (non-tender, PEG) Genitourinary: Yes: Incontinence Musculoskeletal: Yes: Muscle Weakness Edema: Yes (upper extremities) Neurological: Yes: Alert, Pre-Existing Deficit Psychiatric: Yes: Alert Labs: CBC, BMP 11/09/18 06:05 11/09/18 06:05 INR, PTT INR 2.03 (0.83-1.09) H 11/01/18 04:55 Microbiology 11/01/18 04:55 Blood - Peripheral Venous Blood Culture - Preliminary Pending Organism 11/02/18 12:00 Blood - Peripheral Venous Blood Culture - Final NO GROWTH AFTER 5 DAYS INCUBATION 11/02/18 11:40 Blood - Peripheral Venous Blood Culture - Final NO GROWTH AFTER 5 DAYS INCUBATION 11/02/18 16:00 Sputum - Endotrachea Suction/Ventilator Gram Stain - Final 11/02/18 16:00 Sputum - Endotrachea Suction/Ventilator Sputum Culture - Final Pseudomonas Aeruginosa Serratia Marcescens Proteus Mirabilis 11/01/18 04:55 Blood - Peripheral Venous Blood Culture - Final NO GROWTH AFTER 5 DAYS INCUBATION 11/02/18 16:00 Urine For Antigen Detection Legionella Antigen - Final 11/02/18 16:00 Urine For Antigen Detection Streptococcus pneumoniae Antigen (M - Final 11/02/18 11:20 Urine - Urine Krishnamurthy Urine Culture - Final NO GROWTH OBTAINED 11/01/18 07:54 Urine - Urine Krishnamurthy Urine Culture - Final NO GROWTH OBTAINED Problem List - Problems (1) Acute and chronic respiratory failure with hypoxia Assessment/Plan: -pulm on board -mechanically ventilated -albuterol and duoneb PRN for SOB -keep SpO2 >90% Code(s): J96.21 - ACUTE AND CHRONIC RESPIRATORY FAILURE WITH HYPOXIA (2) Afib Assessment/Plan: -continue with metoprolol via GT Code(s): I48.91 - UNSPECIFIED ATRIAL FIBRILLATION (3) Anemia Assessment/Plan: -monitor Hg daily -transfuse if Hg <8.0 -stool OB positive--not canditate for GI intervention at present -current Hg 8.0 Code(s): D64.9 - ANEMIA, UNSPECIFIED Qualifiers: Anemia type: unspecified type Qualified Code(s): D64.9 - Anemia, unspecified (4) Elevated liver enzymes Assessment/Plan: -Abd US show mild fatty infiltration of liver vs hepatocellular disease -monitor LFT daily -current LFT: AST 44, ALT 70 Code(s): R74.8 - ABNORMAL LEVELS OF OTHER SERUM ENZYMES (5) Pneumonia Assessment/Plan: -pulm and ID on board -continue with IV ABT -bronchodilators -keep SpO2 >90% -repeat CXR show bilateral infiltrates mainly in the RUL and L base, left pleural fluid, no significant change from 11/01/18 Code(s): J18.9 - PNEUMONIA, UNSPECIFIED ORGANISM (6) Sepsis Assessment/Plan: -ID on board -continue with IV zosyn -BC and UC neg -sputum culture positive -influenza A/B neg -urine legionella negative -WBC 12.8 and afebrile Code(s): A41.9 - SEPSIS, UNSPECIFIED ORGANISM Qualifiers: Sepsis type: sepsis due to unspecified organism Qualified Code(s): A41.9 - Sepsis, unspecified organism Assessment/Plan see problem list dvt ppx to begin discharge planning for return to SNF
--- NOTE | 2018-11-09 15:36 | PN ---
Progress Note (short form) - Note Progress Note: resting on vent trach day #8 zosyn no diarrhea Vital Signs Period Temp Pulse Resp BP Sys/Jesus Pulse Ox Last 24 Hr 98 F-99.7 F 75-87 20-22 104-125/57-67 94-99 cor-rrr llungs clear, decreased bs at bases abd soft,nt +GT ext no edema sacral ulcer with some necrosis CBC, BMP 11/09/18 06:05 11/09/18 06:05 Microbiology 11/01/18 04:55 Blood - Peripheral Venous Blood Culture - Preliminary Pending Organism 11/02/18 12:00 Blood - Peripheral Venous Blood Culture - Final NO GROWTH AFTER 5 DAYS INCUBATION 11/02/18 11:40 Blood - Peripheral Venous Blood Culture - Final NO GROWTH AFTER 5 DAYS INCUBATION 11/02/18 16:00 Sputum - Endotrachea Suction/Ventilator Gram Stain - Final 11/02/18 16:00 Sputum - Endotrachea Suction/Ventilator Sputum Culture - Final Pseudomonas Aeruginosa Serratia Marcescens Proteus Mirabilis 11/01/18 04:55 Blood - Peripheral Venous Blood Culture - Final NO GROWTH AFTER 5 DAYS INCUBATION 11/02/18 16:00 Urine For Antigen Detection Legionella Antigen - Final 11/02/18 16:00 Urine For Antigen Detection Streptococcus pneumoniae Antigen (M - Final 11/02/18 11:20 Urine - Urine Krishnamurthy Urine Culture - Final NO GROWTH OBTAINED 11/01/18 07:54 Urine - Urine Krishnamurthy Urine Culture - Final NO GROWTH OBTAINED a/p fevers improved, leukocytosis improved multilobar pneumonia repeat cxray improved continue zosyn day #8- would finish 10 days total abnl lfts-improving sono no stones, normal GB [id number] holding lipitor? history of afib-cardiology to evaluate suspect blood culture isolate is contaminant consider wound care evaluation of sacral ulcer Problem List - Problems (1) Acute and chronic respiratory failure with hypoxia Code(s): J96.21 - ACUTE AND CHRONIC RESPIRATORY FAILURE WITH HYPOXIA (2) Pneumonia Code(s): J18.9 - PNEUMONIA, UNSPECIFIED ORGANISM (3) Anemia Code(s): D64.9 - ANEMIA, UNSPECIFIED Qualifiers: Anemia type: unspecified type Qualified Code(s): D64.9 - Anemia, unspecified (4) Abnormal LFTs Code(s): R94.5 - ABNORMAL RESULTS OF LIVER FUNCTION STUDIES
[2018-11-09] MEDS: AMINO ACIDS/PROTEIN HYDROLYS 30 ML LIQUID.PKT GT SCH (17:08)
[2018-11-09] MEDS: ASCORBIC ACID 500 MG/5 ML UNIT DOSE CUP GT SCH (21:29)
[2018-11-09] MEDS: ATORVASTATIN CA 40 MG TABLET (FP) GT SCH (21:30)
[2018-11-10] MEDS: PANTOPRAZOLE SODIUM 80 MG in SODIUM CHLORIDE 100 ML IVPB SCH ×2 (04:07→14:25)
[2018-11-10 07:06] LABS: HEMATOCRIT 23.9 % (35.4-49); HEMOGLOBIN 7.9 GM/dL (11.7-16.9); MCH 27.9 pg (25.7-33.7); MCHC 32.9 g/dl (32.0-35.9); MEAN CELL VOLUME 84.8 fl (80-96); MEAN PLT VOLUME 9.1 fl (7.5-11.1); PLATELET COUNT 305 K/MM3 (134-434); RBC 2.81 M/mm3 (4.00-5.60); WHITE BLOOD COUNT 13.4 K/mm3 (4.0-10.0)
[2018-11-10 07:54] LABS: ALBUMIN 1.4 g/dl (3.4-5.0); ALK PHOS 119 U/L (45-117); ANION GAP 0 MMOL/L (8-16); BILIRUBIN,TOTAL 0.5 mg/dL (0.2-1); BLOOD UREA NITROGEN 22 mg/dL (7-18); CALCIUM 7.4 mg/dL (8.5-10.1); CHLORIDE 109 mmol/L (98-107); CO2 31 mmol/L (21-32); CREATININE 0.3 mg/dL (0.55-1.3); GLUCOSE,RANDOM 92 mg/dL (74-106); POTASSIUM 4.2 mmol/L (3.5-5.1); SGOT/AST 52 U/L (15-37); SGPT/ALT 80 U/L (13-61); SODIUM 140 mmol/L (136-145); TOT PROT 5.5 g/dl (6.4-8.2)
[2018-11-10] MEDS: ALBUTEROL SO4 2.5/IPRATROPIUM 0.5 INH SOL 3 ML VIAL.NEB. NEB SCH ×4 (07:57→21:15)
[2018-11-10] MEDS ORDERED: DEXTROSE 5%-WATER 100 ML IVPB ONE ×2 (09:12→18:47)
[2018-11-10] MEDS ORDERED: PIPERACILLIN/TAZOBACTAM 4.5 GM VIAL IVPB ONE ×2 (09:12→18:47)
[2018-11-10] MEDS: AMINO ACIDS/PROTEIN HYDROLYS 30 ML LIQUID.PKT GT SCH ×2 (10:03→18:54)
[2018-11-10] MEDS: MEMANTINE HCL 10 MG TABLET (FP) GT SCH ×2 (10:04→21:55)
[2018-11-10] MEDS: METOPROLOL TARTRATE 25 MG TABLET (FP) GT SCH ×2 (10:04→21:55)
[2018-11-10] MEDS: ZINC SULFATE 220 MG CAPSULE (FP) GT SCH (10:04)
[2018-11-10] MEDS: PIPERACILLIN/TAZOB 4.5 GM 4.5 GM in DEXTROSE 5%-WATER 100 ML IVPB SCH ×2 (10:04→18:54)
[2018-11-10] MEDS: ASCORBIC ACID 500 MG/5 ML UNIT DOSE CUP GT SCH ×2 (10:16→21:56)
--- NOTE | 2018-11-10 13:42 | PN ---
Progress Note, Physician History of Present Illness: PULMONARY REMAINS ON VENT SUPPORT AC MODE - Current Medication List Current Medications: Active Medications Acetaminophen (Tylenol Oral Solution -) 650 mg PO Q4H PRN PRN Reason: FEVER Albuterol Sulfate (Ventolin 0.083% Nebulizer Soln -) 1 amp NEB Q6H PRN PRN Reason: SHORT OF BREATH/WHEEZING Albuterol/Ipratropium (Duoneb -) 1 amp NEB RQID [facility] Last Admin: 11/10/18 12:34 Dose: 1 amp Amino Acids (Prosource No Carb Liquid Pkt) 30 ml GT BID@0800,1730 [facility] Last Admin: 11/10/18 10:03 Dose: 30 ml Ascorbic Acid (Vitamin C Oral Solution -) 250 mg GT BID [facility] Last Admin: 11/10/18 10:16 Dose: 250 mg Atorvastatin Calcium (Lipitor -) 40 mg GT HS [facility] Last Admin: 11/09/18 21:30 Dose: 40 mg Pantoprazole Sodium 80 mg/ (Sodium Chloride) 100 mls @ 10 mls/hr IVPB Q10H [facility] Last Admin: 11/10/18 04:07 Dose: 10 mls/hr Piperacillin Sod/Tazobactam (Sod 4.5 gm/ Dextrose) 100 mls @ 200 mls/hr IVPB Q8H-IV [facility]; Protocol Last Admin: 11/10/18 10:04 Dose: 200 mls/hr Memantine (Namenda -) 10 mg GT BID [facility] Last Admin: 11/10/18 10:04 Dose: 10 mg Metoprolol Tartrate (Lopressor -) 12.5 mg GT BID [facility] Last Admin: 11/10/18 10:04 Dose: 12.5 mg Zinc Sulfate (Orazinc -) 220 mg GT DAILY [facility] Last Admin: 11/10/18 10:04 Dose: 220 mg - Objective Vital Signs: Vital Signs Temperature 98.2 F 11/10/18 09:29 Pulse Rate 91 H 11/10/18 10:00 Respiratory Rate 22 H 11/10/18 09:58 Blood Pressure 144/73 11/10/18 09:29 O2 Sat by Pulse Oximetry (%) 97 11/10/18 10:00 Constitutional: Yes: Calm, Thin Eyes: Yes: WNL HENT: Yes: WNL Neck: Yes: Supple (TRACH) Cardiovascular: Yes: Pulse Irregular, S1, S2 Respiratory: Yes: Rhonchi (PAULETTE RHONCHI) Gastrointestinal: Yes: Normal Bowel Sounds, Soft Extremities: Yes: WNL Edema: No Labs: CBC, BMP 11/10/18 06:10 11/10/18 06:10 INR, PTT INR 2.03 (0.83-1.09) H 11/01/18 04:55 Problem List - Problems (1) Acute and chronic respiratory failure with hypoxia Code(s): J96.21 - ACUTE AND CHRONIC RESPIRATORY FAILURE WITH HYPOXIA (2) Afib Code(s): I48.91 - UNSPECIFIED ATRIAL FIBRILLATION (3) Anemia Code(s): D64.9 - ANEMIA, UNSPECIFIED Qualifiers: Anemia type: unspecified type Qualified Code(s): D64.9 - Anemia, unspecified (4) Anemia Code(s): D64.9 - ANEMIA, UNSPECIFIED (5) Pneumonia Code(s): J18.9 - PNEUMONIA, UNSPECIFIED ORGANISM (6) Sepsis Code(s): A41.9 - SEPSIS, UNSPECIFIED ORGANISM Qualifiers: Sepsis type: sepsis due to unspecified organism Qualified Code(s): A41.9 - Sepsis, unspecified organism Assessment/Plan A/P Acute on Chronic Hypoxic and Hypercapneic Respiratory Failure Multilobar Pneumonia Sepsis Elevated LFTs Atrial Fibrillation Anemia r/o GI Bleed Dementia Failure to Thrive - antibiotics per ID - inhaled bronchodilators - taper O2 to keep SpO2 >90% - monitor H/H - protonix - rate control - vent support on ac mode - DVT/GI prophylaxis Problem List - Problems (1) Acute and chronic respiratory failure with hypoxia Code(s): J96.21 - ACUTE AND CHRONIC RESPIRATORY FAILURE WITH HYPOXIA (2) Pneumonia Code(s): J18.9 - PNEUMONIA, UNSPECIFIED ORGANISM
--- NOTE | 2018-11-10 17:00 | PN ---
Progress Note, Physician Chief Complaint: Hypotension Anemia Sepsis History of Present Illness: Previous notes and events reviewed awake NAD non-verbal, mechanically ventilated - Current Medication List Current Medications: Active Medications Acetaminophen (Tylenol Oral Solution -) 650 mg PO Q4H PRN PRN Reason: FEVER Albuterol Sulfate (Ventolin 0.083% Nebulizer Soln -) 1 amp NEB Q6H PRN PRN Reason: SHORT OF BREATH/WHEEZING Albuterol/Ipratropium (Duoneb -) 1 amp NEB RQID [facility] Last Admin: 11/10/18 15:57 Dose: 1 amp Amino Acids (Prosource No Carb Liquid Pkt) 30 ml GT BID@0800,1730 [facility] Last Admin: 11/10/18 10:03 Dose: 30 ml Ascorbic Acid (Vitamin C Oral Solution -) 250 mg GT BID [facility] Last Admin: 11/10/18 10:16 Dose: 250 mg Atorvastatin Calcium (Lipitor -) 40 mg GT HS [facility] Last Admin: 11/09/18 21:30 Dose: 40 mg Pantoprazole Sodium 80 mg/ (Sodium Chloride) 100 mls @ 10 mls/hr IVPB Q10H [facility] Last Admin: 11/10/18 14:25 Dose: 10 mls/hr Piperacillin Sod/Tazobactam (Sod 4.5 gm/ Dextrose) 100 mls @ 200 mls/hr IVPB Q8H-IV [facility]; Protocol Last Admin: 11/10/18 10:04 Dose: 200 mls/hr Memantine (Namenda -) 10 mg GT BID [facility] Last Admin: 11/10/18 10:04 Dose: 10 mg Metoprolol Tartrate (Lopressor -) 12.5 mg GT BID [facility] Last Admin: 11/10/18 10:04 Dose: 12.5 mg Zinc Sulfate (Orazinc -) 220 mg GT DAILY [facility] Last Admin: 11/10/18 10:04 Dose: 220 mg - Objective Vital Signs: Vital Signs Temperature 97.7 F 11/10/18 15:33 Pulse Rate 75 11/10/18 14:01 Respiratory Rate 20 11/10/18 14:01 Blood Pressure 95/56 L 11/10/18 14:01 O2 Sat by Pulse Oximetry (%) 95 11/10/18 13:48 Constitutional: Yes: No Distress, Calm Eyes: Yes: Conjunctiva Clear HENT: Yes: Atraumatic Neck: Yes: Other (trach) Cardiovascular: Yes: Regular Rate and Rhythm Respiratory: Yes: Mechanically Ventilated, Rhonchi Gastrointestinal: Yes: Normal Bowel Sounds, Soft, Other (nontender, PEG) Genitourinary: Yes: Incontinence Musculoskeletal: Yes: Muscle Weakness Edema: Yes (RUE and LUE) Neurological: Yes: Alert, Pre-Existing Deficit Psychiatric: Yes: Alert Labs: CBC, BMP 11/10/18 06:10 11/10/18 06:10 INR, PTT INR 2.03 (0.83-1.09) H 11/01/18 04:55 Microbiology 11/01/18 04:55 Blood - Peripheral Venous Blood Culture - Preliminary Pending Organism 11/02/18 12:00 Blood - Peripheral Venous Blood Culture - Final NO GROWTH AFTER 5 DAYS INCUBATION 11/02/18 11:40 Blood - Peripheral Venous Blood Culture - Final NO GROWTH AFTER 5 DAYS INCUBATION 11/02/18 16:00 Sputum - Endotrachea Suction/Ventilator Gram Stain - Final 11/02/18 16:00 Sputum - Endotrachea Suction/Ventilator Sputum Culture - Final Pseudomonas Aeruginosa Serratia Marcescens Proteus Mirabilis 11/01/18 04:55 Blood - Peripheral Venous Blood Culture - Final NO GROWTH AFTER 5 DAYS INCUBATION 11/02/18 16:00 Urine For Antigen Detection Legionella Antigen - Final 11/02/18 16:00 Urine For Antigen Detection Streptococcus pneumoniae Antigen (M - Final 11/02/18 11:20 Urine - Urine Krishnamurthy Urine Culture - Final NO GROWTH OBTAINED 11/01/18 07:54 Urine - Urine Krishnamurthy Urine Culture - Final NO GROWTH OBTAINED Problem List - Problems (1) Acute and chronic respiratory failure with hypoxia Assessment/Plan: -pulm on board -mechanically ventilated -albuterol and duoneb PRN for SOB -keep SpO2 >90% Code(s): J96.21 - ACUTE AND CHRONIC RESPIRATORY FAILURE WITH HYPOXIA (2) Afib Assessment/Plan: -continue with metoprolol via GT Code(s): I48.91 - UNSPECIFIED ATRIAL FIBRILLATION (3) Anemia Assessment/Plan: -monitor Hg daily -transfuse if Hg <8.0 -stool OB positive--not canditate for GI intervention at present -current Hg 7.9 Code(s): D64.9 - ANEMIA, UNSPECIFIED Qualifiers: Anemia type: unspecified type Qualified Code(s): D64.9 - Anemia, unspecified (4) Elevated liver enzymes Assessment/Plan: -Abd US show mild fatty infiltration of liver vs hepatocellular disease -monitor LFT daily -current LFT: AST 52, ALT 80 Code(s): R74.8 - ABNORMAL LEVELS OF OTHER SERUM ENZYMES (5) Pneumonia Assessment/Plan: -pulm and ID on board -WBC 13.8 -continue with IV ABT -bronchodilators -keep SpO2 >90% -repeat CXR show bilateral infiltrates mainly in the RUL and L base, left pleural fluid, no significant change from 11/01/18 Code(s): J18.9 - PNEUMONIA, UNSPECIFIED ORGANISM (6) Sepsis Assessment/Plan: -ID on board -continue with IV zosyn -BC and UC neg -sputum culture positive -influenza A/B neg -urine legionella negative -WBC 13.8 and afebrile Code(s): A41.9 - SEPSIS, UNSPECIFIED ORGANISM Qualifiers: Sepsis type: sepsis due to unspecified organism Qualified Code(s): A41.9 - Sepsis, unspecified organism Assessment/Plan see problem list dvt ppx to begin discharge planning for return to SNF
[2018-11-10] MEDS: ATORVASTATIN CA 40 MG TABLET (FP) GT SCH (21:55)
[2018-11-11] MEDS: PANTOPRAZOLE SODIUM 80 MG in SODIUM CHLORIDE 100 ML IVPB SCH ×3 (00:48→22:15)
[2018-11-11] MEDS ORDERED: PIPERACILLIN/TAZOBACTAM 4.5 GM VIAL IVPB ONE ×3 (01:49→16:35)
[2018-11-11] MEDS ORDERED: DEXTROSE 5%-WATER 100 ML IVPB ONE ×3 (01:49→16:35)
[2018-11-11] MEDS: PIPERACILLIN/TAZOB 4.5 GM 4.5 GM in DEXTROSE 5%-WATER 100 ML IVPB SCH ×3 (01:58→17:08)
[2018-11-11] MEDS: METOPROLOL TARTRATE 25 MG TABLET (FP) GT SCH ×2 (09:31→22:16)
[2018-11-11] MEDS: MEMANTINE HCL 10 MG TABLET (FP) GT SCH ×2 (09:31→22:15)
[2018-11-11] MEDS: ZINC SULFATE 220 MG CAPSULE (FP) GT SCH (09:31)
[2018-11-11] MEDS: AMINO ACIDS/PROTEIN HYDROLYS 30 ML LIQUID.PKT GT SCH ×2 (09:31→17:09)
[2018-11-11 09:33] LABS: HEMATOCRIT 21.3 % (35.4-49); HEMOGLOBIN 7.1 GM/dL (11.7-16.9); MCH 28.6 pg (25.7-33.7); MCHC 33.4 g/dl (32.0-35.9); MEAN CELL VOLUME 85.7 fl (80-96); MEAN PLT VOLUME 9.9 fl (7.5-11.1); PLATELET COUNT 259 K/MM3 (134-434); RBC 2.49 M/mm3 (4.00-5.60); RDW 20.1 % (11.9-15.9); WHITE BLOOD COUNT 10.6 K/mm3 (4.0-10.0)
[2018-11-11] MEDS: ASCORBIC ACID 500 MG/5 ML UNIT DOSE CUP GT SCH ×2 (09:35→22:50)
[2018-11-11] MEDS: ALBUTEROL SO4 2.5/IPRATROPIUM 0.5 INH SOL 3 ML VIAL.NEB. NEB SCH ×4 (09:37→20:15)
--- NOTE | 2018-11-11 10:11 | PN ---
Progress Note (short form) - Note Progress Note: Vented on volume assist control. Eyes open. Not following commands. No acute events overnight. No fever. Saturating well on 40% FiO2. Intake & Output 11/08/18 11/09/18 11/10/18 11/11/18 23:59 23:59 23:59 23:59 Intake Total 2270 2235 900 940 Balance 2270 2235 900 940 Weight 128 lb Last Vital Signs Temp Pulse Resp BP Pulse Ox 99.7 F H 69 25 H 100/60 99 11/11/18 06:00 11/11/18 06:00 11/11/18 09:20 11/11/18 06:00 11/10/18 21:00 Active Medications Acetaminophen (Tylenol Oral Solution -) 650 mg PO Q4H PRN PRN Reason: FEVER Albuterol Sulfate (Ventolin 0.083% Nebulizer Soln -) 1 amp NEB Q6H PRN PRN Reason: SHORT OF BREATH/WHEEZING Albuterol/Ipratropium (Duoneb -) 1 amp NEB RQID [facility] Last Admin: 11/11/18 09:37 Dose: 1 amp Amino Acids (Prosource No Carb Liquid Pkt) 30 ml GT BID@0800,1730 [facility] Last Admin: 11/11/18 09:31 Dose: 30 ml Ascorbic Acid (Vitamin C Oral Solution -) 250 mg GT BID [facility] Last Admin: 11/11/18 09:35 Dose: 250 mg Atorvastatin Calcium (Lipitor -) 40 mg GT HS [facility] Last Admin: 11/10/18 21:55 Dose: 40 mg Pantoprazole Sodium 80 mg/ (Sodium Chloride) 100 mls @ 10 mls/hr IVPB Q10H [facility] Last Admin: 11/11/18 00:48 Dose: 10 mls/hr Piperacillin Sod/Tazobactam (Sod 4.5 gm/ Dextrose) 100 mls @ 200 mls/hr IVPB Q8H-IV [facility]; Protocol Last Admin: 11/11/18 09:30 Dose: 200 mls/hr Memantine (Namenda -) 10 mg GT BID [facility] Last Admin: 11/11/18 09:31 Dose: 10 mg Metoprolol Tartrate (Lopressor -) 12.5 mg GT BID [facility] Last Admin: 11/11/18 09:31 Dose: 12.5 mg Zinc Sulfate (Orazinc -) 220 mg GT DAILY [facility] Last Admin: 11/11/18 09:31 Dose: 220 mg Gen: vented, cachectic, Trach intact Heart: RRR Lung: scattered rhonchi Abd: soft, nontender Ext: no edema Laboratory Results - last 24 hr 11/11/18 08:25 WBC 10.6 H RBC 2.49 L Hgb 7.1 L Hct 21.3 L MCV 85.7 MCH 28.6 MCHC 33.4 RDW 20.1 H Plt Count 259 MPV 9.9 Problem List - Problems (1) Acute and chronic respiratory failure with hypoxia Code(s): J96.21 - ACUTE AND CHRONIC RESPIRATORY FAILURE WITH HYPOXIA (2) Pneumonia Code(s): J18.9 - PNEUMONIA, UNSPECIFIED ORGANISM A/P Acute on Chronic Hypoxic and Hypercapneic Respiratory Failure Multilobar Pneumonia Sepsis Elevated LFTs Atrial Fibrillation Anemia r/o GI Bleed Dementia Failure to Thrive - Antibiotics per ID: for 10 days total of Zosyn - inhaled bronchodilators - PPI - Rate control - Continue volume assist control - DVT/GI prophylaxis - No Pulmonary contraindication for D/C once ABX are complete Dr Galloway
[2018-11-11 11:10] LABS: ALBUMIN 1.3 g/dl (3.4-5.0); ALK PHOS 107 U/L (45-117); ANION GAP 5 MMOL/L (8-16); BILIRUBIN,TOTAL 0.3 mg/dL (0.2-1); BLOOD UREA NITROGEN 24 mg/dL (7-18); CALCIUM 7.2 mg/dL (8.5-10.1); CHLORIDE 109 mmol/L (98-107); CO2 28 mmol/L (21-32); CREATININE 0.3 mg/dL (0.55-1.3); GLUCOSE,RANDOM 96 mg/dL (74-106); SGOT/AST 33 U/L (15-37); SGPT/ALT 58 U/L (13-61); SODIUM 143 mmol/L (136-145); TOT PROT 5.1 g/dl (6.4-8.2)
[2018-11-11] MEDS ORDERED: IRON SUCROSE INJECTION 200 MG in SODIUM CHLORIDE 90 ML IVPB ONE (11:45)
--- NOTE | 2018-11-11 11:47 | PN ---
Progress Note, Physician Chief Complaint: Hypotension Anemia Sepsis History of Present Illness: Previous notes and events reviewed awake NAD non-verbal, mechanically ventilated - Current Medication List Current Medications: Active Medications Acetaminophen (Tylenol Oral Solution -) 650 mg PO Q4H PRN PRN Reason: FEVER Albuterol Sulfate (Ventolin 0.083% Nebulizer Soln -) 1 amp NEB Q6H PRN PRN Reason: SHORT OF BREATH/WHEEZING Albuterol/Ipratropium (Duoneb -) 1 amp NEB RQID [facility] Last Admin: 11/11/18 09:37 Dose: 1 amp Amino Acids (Prosource No Carb Liquid Pkt) 30 ml GT BID@0800,1730 [facility] Last Admin: 11/11/18 09:31 Dose: 30 ml Ascorbic Acid (Vitamin C Oral Solution -) 250 mg GT BID [facility] Last Admin: 11/11/18 09:35 Dose: 250 mg Atorvastatin Calcium (Lipitor -) 40 mg GT HS [facility] Last Admin: 11/10/18 21:55 Dose: 40 mg Pantoprazole Sodium 80 mg/ (Sodium Chloride) 100 mls @ 10 mls/hr IVPB Q10H [facility] Last Admin: 11/11/18 00:48 Dose: 10 mls/hr Piperacillin Sod/Tazobactam (Sod 4.5 gm/ Dextrose) 100 mls @ 200 mls/hr IVPB Q8H-IV [facility]; Protocol Last Admin: 11/11/18 09:30 Dose: 200 mls/hr Memantine (Namenda -) 10 mg GT BID [facility] Last Admin: 11/11/18 09:31 Dose: 10 mg Metoprolol Tartrate (Lopressor -) 12.5 mg GT BID [facility] Last Admin: 11/11/18 09:31 Dose: 12.5 mg Zinc Sulfate (Orazinc -) 220 mg GT DAILY [facility] Last Admin: 11/11/18 09:31 Dose: 220 mg - Objective Vital Signs: Vital Signs Temperature 99.7 F H 11/11/18 06:00 Pulse Rate 69 11/11/18 06:00 Respiratory Rate 25 H 11/11/18 09:20 Blood Pressure 100/60 11/11/18 06:00 O2 Sat by Pulse Oximetry (%) 99 11/10/18 21:00 Constitutional: Yes: No Distress, Calm Eyes: Yes: Conjunctiva Clear HENT: Yes: Atraumatic Neck: Yes: Other (trach) Cardiovascular: Yes: Regular Rate and Rhythm Respiratory: Yes: Regular, Mechanically Ventilated, Rhonchi Gastrointestinal: Yes: Normal Bowel Sounds, Soft, Other (PEG) Genitourinary: Yes: Incontinence Musculoskeletal: Yes: Muscle Weakness Extremities: Yes: WNL Edema: Yes Edema: LLE: 2+, RLE: 2+ Neurological: Yes: Alert, Pre-Existing Deficit Psychiatric: Yes: Alert Labs: CBC, BMP 11/11/18 08:25 11/11/18 08:25 INR, PTT INR 2.03 (0.83-1.09) H 11/01/18 04:55 Problem List - Problems (1) Acute and chronic respiratory failure with hypoxia Assessment/Plan: -pulm on board -mechanically ventilated -albuterol and duoneb PRN for SOB -keep SpO2 >90% Code(s): J96.21 - ACUTE AND CHRONIC RESPIRATORY FAILURE WITH HYPOXIA (2) Afib Assessment/Plan: -continue with metoprolol via GT Code(s): I48.91 - UNSPECIFIED ATRIAL FIBRILLATION (3) Anemia Assessment/Plan: -monitor Hg daily -transfuse if Hg <7.0 -stool OB positive--not canditate for GI intervention at present -current Hg 7.1 -Iron sucrose 200mg IVPB x 1 dose Code(s): D64.9 - ANEMIA, UNSPECIFIED Qualifiers: Anemia type: unspecified type Qualified Code(s): D64.9 - Anemia, unspecified (4) Elevated liver enzymes Assessment/Plan: -Abd US show mild fatty infiltration of liver vs hepatocellular disease -monitor LFT daily -current LFT nl Code(s): R74.8 - ABNORMAL LEVELS OF OTHER SERUM ENZYMES (5) Pneumonia Assessment/Plan: -pulm and ID on board -WBC 10.6 -continue with IV ABT -bronchodilators -keep SpO2 >90% -repeat CXR show bilateral infiltrates mainly in the RUL and L base, left pleural fluid, no significant change from 11/01/18 Code(s): J18.9 - PNEUMONIA, UNSPECIFIED ORGANISM (6) Sepsis Assessment/Plan: -ID on board -continue with IV zosyn -BC and UC neg -sputum culture positive -influenza A/B neg -urine legionella negative -WBC 10.6 and afebrile Code(s): A41.9 - SEPSIS, UNSPECIFIED ORGANISM Qualifiers: Sepsis type: sepsis due to unspecified organism Qualified Code(s): A41.9 - Sepsis, unspecified organism Assessment/Plan see problem list dvt ppx to begin discharge planning for return to SNF
--- NOTE | 2018-11-11 12:32 | CONSULT ---
Consult Consult Specialty:: Plastic Surgry/Wound Referred by:: Dr Hernandez Reason for Consultation:: Tissue Injury lower back - Past Medical History HOME HEALTH PROVIDER: Yes: Alzheimer's Cardio/Vascular: Yes: AFIB Pulmonary: Yes: Other (resp failure intubated on vent) Gastrointestinal: Yes: GERD - Alcohol/Substance Use Hx Alcohol Use: No - Smoking History Smoking history: Unknown if ever smoked Have you smoked in the past 12 months: No Home Medications - Allergies Allergies/Adverse Reactions: Allergies Allergy/AdvReac Type Severity Reaction Status Date / Time No Known Allergies Allergy Verified 11/01/18 04:12 - Home Medications Home Medications: Ambulatory Orders Acetaminophen [Tylenol -] 650 mg GT Q6H PRN 11/01/18 Albuterol 0.083% Nebulizer Lexus [Ventolin 0.083% Nebulizer Soln -] 1 neb NEB Q6H 11/01/18 Amiodarone HCl 200 mg GT DAILY 11/01/18 Apixaban [Eliquis] 5 mg GT BID 11/01/18 Aspirin 81 mg GT DAILY 11/01/18 Atorvastatin Ca [Lipitor] 40 mg GT HS 11/01/18 Butenafine HCl [Lotrimin Ultra] 30 gm TP BID 11/01/18 Butenafine HCl [Lotrimin Ultra] 30 gm TP BID 11/01/18 Clonazepam [Klonopin] 1 mg GT Q6H 11/01/18 Donepezil HCl [Aricept -] 10 mg GT HS 11/01/18 LORazepam [Ativan] 1 mg GT HS 11/01/18 Lansoprazole [Prevacid] 30 mg GT DAILY 11/01/18 Memantine HCl [Namenda -] 10 mg GT BID 11/01/18 Metoprolol Tartrate [Lopressor -] 12.5 mg GT Q12H 11/01/18 Peg 400/Hypromellose/Glycerin [Artificial Tears Drops] 15 ml OP BID 11/01/18 Physical Exam Vital Signs: Vital Signs Temperature 99.7 F H 11/11/18 06:00 Pulse Rate 69 11/11/18 06:00 Respiratory Rate 25 H 11/11/18 09:20 Blood Pressure 100/60 11/11/18 06:00 O2 Sat by Pulse Oximetry (%) 99 11/10/18 21:00 Labs: CBC, BMP 11/11/18 08:25 03/21/19 08:25 Assessment/Plan Lower back evaluated DTI Coccyx/sacral area no induration, Patient general condition is poor, Conservative care, avoidance of further Pressure, moisture, friction, pulling /dragging avoided. Recovery will slow depending on Medical condition. Sacral wound avoiding deterioration of present Pressure Recommend : To avoid further skin/tissue injury, use GradeIII/GradeIV Low Pressure mattress /bed , Nursing care , Position to be changed frequency determined on Respiratory condition,and Medical stability 1. Clean skin gently with diluted solution of NSS/Betadine BID 4:1 using 4x4 , avoid skin maceration, change diapers frequently 2. Medical Management including diet, skin temperature, avoid, skin massage, avoid Friction/dragging during change in position 3. Reconsult when general condition stabilize 4. No surgical intervention at present. 5. Conservative.
[2018-11-11] MEDS ORDERED: PT OWN MED DRAWER 7, Y5N ONE ×2 (12:38→13:40)
--- NOTE | 2018-11-11 16:05 | PN ---
Progress Note (short form) - Note Progress Note: resting on vent trach day #10 zosyn no diarrhea alert responsive Vital Signs Period Temp Pulse Resp BP Sys/Jesus Pulse Ox Last 24 Hr 97.3 F-99.7 F 69-79 20-25 99-121/56-60 99-100 cor-rrr lungs decreased bs at bases abd soft,nt ext no edema trach to vent CBC, BMP 11/11/18 08:25 11/11/18 08:25 Microbiology 11/01/18 04:55 Blood - Peripheral Venous Blood Culture - Preliminary Anaero Non Spore Forming Gpbac 11/02/18 12:00 Blood - Peripheral Venous Blood Culture - Final NO GROWTH AFTER 5 DAYS INCUBATION 11/02/18 11:40 Blood - Peripheral Venous Blood Culture - Final NO GROWTH AFTER 5 DAYS INCUBATION 11/02/18 16:00 Sputum - Endotrachea Suction/Ventilator Gram Stain - Final 11/02/18 16:00 Sputum - Endotrachea Suction/Ventilator Sputum Culture - Final Pseudomonas Aeruginosa Serratia Marcescens Proteus Mirabilis 11/01/18 04:55 Blood - Peripheral Venous Blood Culture - Final NO GROWTH AFTER 5 DAYS INCUBATION 11/02/18 16:00 Urine For Antigen Detection Legionella Antigen - Final 11/02/18 16:00 Urine For Antigen Detection Streptococcus pneumoniae Antigen (M - Final 11/02/18 11:20 Urine - Urine Krishnamurthy Urine Culture - Final NO GROWTH OBTAINED 11/01/18 07:54 Urine - Urine Krishnamurthy Urine Culture - Final NO GROWTH OBTAINED Current Medications Acetaminophen (Tylenol Oral Solution -) 650 mg PO Q4H PRN PRN Reason: FEVER Albuterol Sulfate (Ventolin 0.083% Nebulizer Soln -) 1 amp NEB Q6H PRN PRN Reason: SHORT OF BREATH/WHEEZING Albuterol/Ipratropium (Duoneb -) 1 amp NEB RQID [facility] Last Admin: 11/11/18 12:19 Dose: 1 amp Amino Acids (Prosource No Carb Liquid Pkt) 30 ml GT BID@0800,1730 [facility] Last Admin: 11/11/18 09:31 Dose: 30 ml Ascorbic Acid (Vitamin C Oral Solution -) 250 mg GT BID [facility] Last Admin: 11/11/18 09:35 Dose: 250 mg Atorvastatin Calcium (Lipitor -) 40 mg GT HS [facility] Last Admin: 11/10/18 21:55 Dose: 40 mg Pantoprazole Sodium 80 mg/ (Sodium Chloride) 100 mls @ 10 mls/hr IVPB Q10H [facility] Last Admin: 11/11/18 12:38 Dose: 10 mls/hr Piperacillin Sod/Tazobactam (Sod 4.5 gm/ Dextrose) 100 mls @ 200 mls/hr IVPB Q8H-IV [facility]; Protocol Last Admin: 11/11/18 09:30 Dose: 200 mls/hr Memantine (Namenda -) 10 mg GT BID [facility] Last Admin: 11/11/18 09:31 Dose: 10 mg Metoprolol Tartrate (Lopressor -) 12.5 mg GT BID [facility] Last Admin: 11/11/18 09:31 Dose: 12.5 mg Zinc Sulfate (Orazinc -) 220 mg GT DAILY [facility] Last Admin: 11/11/18 09:31 Dose: 220 mg a/p fevers improved, leukocytosis improved multilobar pneumonia repeat cxray improved continue zosyn day 10 d/c antibioitcs in am abnl lfts-resolved mental status improved history of afib-cardiology to evaluate suspect blood culture isolate is contaminant please call back if needed Problem List - Problems (1) Acute and chronic respiratory failure with hypoxia Code(s): J96.21 - ACUTE AND CHRONIC RESPIRATORY FAILURE WITH HYPOXIA (2) Pneumonia Code(s): J18.9 - PNEUMONIA, UNSPECIFIED ORGANISM (3) Anemia Code(s): D64.9 - ANEMIA, UNSPECIFIED Qualifiers: Anemia type: unspecified type Qualified Code(s): D64.9 - Anemia, unspecified (4) Abnormal LFTs Code(s): R94.5 - ABNORMAL RESULTS OF LIVER FUNCTION STUDIES
[2018-11-11] MEDS: ATORVASTATIN CA 40 MG TABLET (FP) GT SCH (22:15)
[2018-11-12] MEDS ORDERED: PIPERACILLIN/TAZOBACTAM 4.5 GM VIAL IVPB ONE ×2 (02:23→10:39)
[2018-11-12] MEDS ORDERED: DEXTROSE 5%-WATER 100 ML IVPB ONE ×2 (02:23→10:39)
[2018-11-12] MEDS: PIPERACILLIN/TAZOB 4.5 GM 4.5 GM in DEXTROSE 5%-WATER 100 ML IVPB SCH ×2 (02:29→10:56)
[2018-11-12] MEDS: PANTOPRAZOLE SODIUM 80 MG in SODIUM CHLORIDE 100 ML IVPB SCH ×2 (06:02→10:55)
[2018-11-12 07:27] LABS: HEMATOCRIT 23.1 % (35.4-49); HEMOGLOBIN 7.7 GM/dL (11.7-16.9); MCH 28.6 pg (25.7-33.7); MCHC 33.3 g/dl (32.0-35.9); MEAN CELL VOLUME 85.8 fl (80-96); MEAN PLT VOLUME 9.4 fl (7.5-11.1); PLATELET COUNT 282 K/MM3 (134-434); RBC 2.69 M/mm3 (4.00-5.60); RDW 20.1 % (11.9-15.9); WHITE BLOOD COUNT 9.2 K/mm3 (4.0-10.0)
[2018-11-12 08:11] LABS: ALBUMIN 1.4 g/dl (3.4-5.0); ALK PHOS 115 U/L (45-117); ANION GAP 5 MMOL/L (8-16); BILIRUBIN,TOTAL 0.2 mg/dL (0.2-1); BLOOD UREA NITROGEN 25 mg/dL (7-18); CALCIUM 7.3 mg/dL (8.5-10.1); CHLORIDE 108 mmol/L (98-107); CO2 28 mmol/L (21-32); CREATININE 0.3 mg/dL (0.55-1.3); GLUCOSE,RANDOM 98 mg/dL (74-106); POTASSIUM 3.8 mmol/L (3.5-5.1); SGOT/AST 30 U/L (15-37); SGPT/ALT 58 U/L (13-61); SODIUM 140 mmol/L (136-145); TOT PROT 5.2 g/dl (6.4-8.2)
[2018-11-12] MEDS: ALBUTEROL SO4 2.5/IPRATROPIUM 0.5 INH SOL 3 ML VIAL.NEB. NEB SCH ×2 (08:23→11:41)
[2018-11-12] MEDS: AMINO ACIDS/PROTEIN HYDROLYS 30 ML LIQUID.PKT GT SCH (08:54)
--- NOTE | 2018-11-12 10:50 | DS ---
Physical Examination Vital Signs: Vital Signs Temperature 97.4 F L 11/12/18 06:24 Pulse Rate 71 11/12/18 09:39 Respiratory Rate 20 11/12/18 09:39 Blood Pressure 102/64 11/12/18 06:24 O2 Sat by Pulse Oximetry (%) 99 11/12/18 09:39 Findings/Remarks: Patient is a 73 y/o male with past medical history of acute respiratory failure with hypoxia, s/p ventilator placement, PEG tube, afib, anxiety disorder, GERD, Alzheimer's disease. Patient presented to ER from [facility] with lethargy and hypotension. Patient was admitted for Sepsis. ER significant for WBC 18.7, normal LA 1.6, anemia with Hg 7.1, Stool OB positive. Evaluated by GI and poor candidate for GI intervention at this time. Followed by ID while in house and was treated with IV antibiotic therapy. Currently patient has no leukocytosis and is afebrile. Constitutional: Yes: No Distress, Calm Eyes: Yes: Conjunctiva Clear HENT: Yes: Atraumatic Cardiovascular: Yes: Regular Rate and Rhythm Respiratory: Yes: Diminished, Mechanically Ventilated Gastrointestinal: Yes: Normal Bowel Sounds, Soft, Other (PEG) Renal/: Yes: Incontinence Musculoskeletal: Yes: Muscle Weakness Extremities: Yes: WNL Edema: Yes (upper and lower extremity) Neurological: Yes: Alert, Pre-Existing Deficit Psychiatric: Yes: Alert Labs: CBC, BMP 11/12/18 06:35 11/12/18 06:35 Discharge Summary Reason For Visit: ANEMIA,SEPSIS Current Active Problems Abnormal LFTs (Acute) Acute and chronic respiratory failure with hypoxia (Acute) Afib (Acute) Anemia (Acute) Anemia (Acute) Decubitus skin ulcer (Acute) Elevated liver enzymes (Acute) GI bleed (Acute) Pneumonia (Acute) Sepsis (Acute) Hospital Course: see progress notes Laboratory Tests 11/01/18 11/01/18 11/01/18 04:55 04:55 04:55 WBC 18.7 H RBC 2.69 L Hgb 7.1 L Hct 22.6 L MCV 84.2 MCH 26.5 MCHC 31.5 L RDW 19.7 H Plt Count 460 H MPV 8.4 Absolute Neuts (auto) 17.9 H Total Counted 100 Neutrophils % 95.6 H Neutrophils % (Manual) 84.0 H Band Neutrophils % 10.0 Lymphocytes % 2.0 L Lymphocytes % (Manual) 4.0 L Monocytes % 2.3 L Monocytes % (Manual) 2 L Eosinophils % 0.1 Eosinophils % (Manual) Basophils % 0.0 Basophils % (Manual) Nucleated RBC % 0 Hypochromia 2+ Platelet Estimate Slt increase Platelet Comment Large platelets Poikilocytosis 1+ Anisocytosis 1+ Microcytosis 1+ PT with INR 24.10 H INR 2.03 H PTT (Actin FS) 30.3 Anticoagulation Therapy Puncture Site ABG pH ABG pCO2 at Pt Temp ABG pO2 at Pt Temp ABG HCO3 ABG O2 Sat (Measured) ABG O2 Content ABG Base Excess Frank Test VBG pH 7.21 L* POC VBG pCO2 83.7 H* POC VBG pO2 37.0 VBG HCO3 31.9 L* VBG O2 Sat (Libra) 53.4 H* VBG Base Excess 3.7 H O2 Delivery Device Oxygen Flow Rate Vent Mode Vent Rate Mechanical Rate Pressure Support Vent Sodium Potassium Chloride Carbon Dioxide Anion Gap BUN Creatinine Creat Clearance w eGFR Random Glucose Hemoglobin A1c % Lactic Acid Calcium Phosphorus Magnesium Iron TIBC Iron Saturation Ferritin Total Bilirubin AST ALT Alkaline Phosphatase Troponin I Total Protein Albumin Triglycerides Cholesterol Total LDL Cholesterol HDL Cholesterol Serum Folate Free T4 Urine Color Urine Appearance Urine pH Ur Specific [place] Urine Protein Urine Glucose (UA) Urine Ketones Urine Blood Urine Nitrite Urine Bilirubin Urine Urobilinogen Ur Leukocyte Esterase Urine WBC (Auto) Urine RBC (Auto) Ur Epithelial Cells Amorphous Urates Stool Occult Blood Vancomycin Pre-Dose Influenza A (Rapid) Influenza B (Rapid) Blood Type Antibody Screen Crossmatch 11/01/18 11/01/18 11/01/18 04:55 04:55 04:55 WBC RBC Hgb Hct MCV MCH MCHC RDW Plt Count MPV Absolute Neuts (auto) Total Counted Neutrophils % Neutrophils % (Manual) Band Neutrophils % Lymphocytes % Lymphocytes % (Manual) Monocytes % Monocytes % (Manual) Eosinophils % Eosinophils % (Manual) Basophils % Basophils % (Manual) Nucleated RBC % Hypochromia Platelet Estimate Platelet Comment Poikilocytosis Anisocytosis Microcytosis PT with INR INR PTT (Actin FS) Anticoagulation Therapy Puncture Site ABG pH ABG pCO2 at Pt Temp ABG pO2 at Pt Temp ABG HCO3 ABG O2 Sat (Measured) ABG O2 Content ABG Base Excess Frank Test VBG pH POC VBG pCO2 POC VBG pO2 VBG HCO3 VBG O2 Sat (Libra) VBG Base Excess O2 Delivery Device Oxygen Flow Rate Vent Mode Vent Rate Mechanical Rate Pressure Support Vent Sodium 140 Potassium 5.3 H Chloride 102 Carbon Dioxide 33 H Anion Gap 5 L BUN 59 H Creatinine 0.7 Creat Clearance w eGFR > 60 Random Glucose 149 H Hemoglobin A1c % Lactic Acid 1.6 Calcium 8.5 Phosphorus Magnesium Iron TIBC Iron Saturation Ferritin Total Bilirubin 0.3 AST 115 H ALT 141 H Alkaline Phosphatase 191 H Troponin I < 0.02 Total Protein 6.2 L Albumin 1.5 L Triglycerides Cholesterol Total LDL Cholesterol HDL Cholesterol Serum Folate Free T4 Urine Color Urine Appearance Urine pH Ur Specific [place] Urine Protein Urine Glucose (UA) Urine Ketones Urine Blood Urine Nitrite Urine Bilirubin Urine Urobilinogen Ur Leukocyte Esterase Urine WBC (Auto) Urine RBC (Auto) Ur Epithelial Cells Amorphous Urates Stool Occult Blood Vancomycin Pre-Dose Influenza A (Rapid) Influenza B (Rapid) Blood Type Antibody Screen Crossmatch 11/01/18 11/01/18 11/01/18 06:42 07:20 07:26 WBC RBC Hgb Hct MCV MCH MCHC RDW Plt Count MPV Absolute Neuts (auto) Total Counted Neutrophils % Neutrophils % (Manual) Band Neutrophils % Lymphocytes % Lymphocytes % (Manual) Monocytes % Monocytes % (Manual) Eosinophils % Eosinophils % (Manual) Basophils % Basophils % (Manual) Nucleated RBC % Hypochromia Platelet Estimate Platelet Comment Poikilocytosis Anisocytosis Microcytosis PT with INR INR PTT (Actin FS) Anticoagulation Therapy No Result Required. Puncture Site Left radial ABG pH 7.33 L ABG pCO2 at Pt Temp 59.2 H ABG pO2 at Pt Temp 162.0 H* ABG HCO3 30.3 H ABG O2 Sat (Measured) 99.5 H ABG O2 Content 9.1 L* ABG Base Excess 4.5 H Frank Test Positive VBG pH POC VBG pCO2 POC VBG pO2 VBG HCO3 VBG O2 Sat (Libra) VBG Base Excess O2 Delivery Device No Result Required. Oxygen Flow Rate No Vent Mode A/c Vent Rate No Result Required. Mechanical Rate No Result Required. Pressure Support Vent No Result Required. Sodium Potassium Chloride Carbon Dioxide Anion Gap BUN Creatinine Creat Clearance w eGFR Random Glucose Hemoglobin A1c % Lactic Acid Calcium Phosphorus Magnesium Iron TIBC Iron Saturation Ferritin Total Bilirubin AST ALT Alkaline Phosphatase Troponin I Total Protein Albumin Triglycerides Cholesterol Total LDL Cholesterol HDL Cholesterol Serum Folate Free T4 Urine Color Urine Appearance Urine pH Ur Specific [place] Urine Protein Urine Glucose (UA) Urine Ketones Urine Blood Urine Nitrite Urine Bilirubin Urine Urobilinogen Ur Leukocyte Esterase Urine WBC (Auto) Urine RBC (Auto) Ur Epithelial Cells Amorphous Urates Stool Occult Blood Positive Vancomycin Pre-Dose Influenza A (Rapid) Influenza B (Rapid) Blood Type O POSITIVE Antibody Screen Negative Crossmatch See Detail 11/01/18 11/01/18 11/01/18 07:54 08:45 12:05 WBC RBC Hgb Hct MCV MCH MCHC RDW Plt Count MPV Absolute Neuts (auto) Total Counted Neutrophils % Neutrophils % (Manual) Band Neutrophils % Lymphocytes % Lymphocytes % (Manual) Monocytes % Monocytes % (Manual) Eosinophils % Eosinophils % (Manual) Basophils % Basophils % (Manual) Nucleated RBC % Hypochromia Platelet Estimate Platelet Comment Poikilocytosis Anisocytosis Microcytosis PT with INR INR PTT (Actin FS) Anticoagulation Therapy Puncture Site ABG pH ABG pCO2 at Pt Temp ABG pO2 at Pt Temp ABG HCO3 ABG O2 Sat (Measured) ABG O2 Content ABG Base Excess Frank Test VBG pH POC VBG pCO2 POC VBG pO2 VBG HCO3 VBG O2 Sat (Libra) VBG Base Excess O2 Delivery Device Oxygen Flow Rate Vent Mode Vent Rate Mechanical Rate Pressure Support Vent Sodium Potassium Chloride Carbon Dioxide Anion Gap BUN Creatinine Creat Clearance w eGFR Random Glucose Hemoglobin A1c % Lactic Acid 0.9 Calcium Phosphorus Magnesium Iron TIBC Iron Saturation Ferritin Total Bilirubin AST ALT Alkaline Phosphatase Troponin I Total Protein Albumin Triglycerides Cholesterol Total LDL Cholesterol HDL Cholesterol Serum Folate Free T4 Urine Color Yellow Urine Appearance Slcloudy Urine pH 5.0 Ur Specific [place] 1.024 Urine Protein 1+ H Urine Glucose (UA) Negative Urine Ketones Negative Urine Blood Negative Urine Nitrite Negative Urine Bilirubin Negative Urine Urobilinogen 4.0 e.u/dl Ur Leukocyte Esterase Negative Urine WBC (Auto) 1-3 Urine RBC (Auto) 2-4 Ur Epithelial Cells None seen Amorphous Urates 2+ Stool Occult Blood Vancomycin Pre-Dose Influenza A (Rapid) Influenza B (Rapid) Blood Type O POSITIVE Antibody Screen Crossmatch 11/01/18 11/01/18 11/01/18 12:05 12:05 23:50 WBC 14.6 H 15.4 H RBC 2.43 L 3.07 L Hgb 6.4 L* 8.8 L Hct 20.5 L 26.4 L D MCV 84.4 86.0 MCH 26.3 28.7 MCHC 31.2 L 33.4 RDW 19.8 H 17.7 H Plt Count 389 354 MPV 8.3 8.3 Absolute Neuts (auto) 13.7 H Total Counted Neutrophils % 93.6 H Neutrophils % (Manual) 92.0 H Band Neutrophils % 5.0 Lymphocytes % 2.6 L D Lymphocytes % (Manual) 3.0 L Monocytes % 3.3 L Monocytes % (Manual) 0 L Eosinophils % 0.4 D Eosinophils % (Manual) 0.0 Basophils % 0.1 D Basophils % (Manual) 0.0 Nucleated RBC % 0 Hypochromia Platelet Estimate Adequate Platelet Comment Poikilocytosis Anisocytosis 1+ Microcytosis PT with INR INR PTT (Actin FS) Anticoagulation Therapy Puncture Site ABG pH ABG pCO2 at Pt Temp ABG pO2 at Pt Temp ABG HCO3 ABG O2 Sat (Measured) ABG O2 Content ABG Base Excess Frank Test VBG pH POC VBG pCO2 POC VBG pO2 VBG HCO3 VBG O2 Sat (Libra) VBG Base Excess O2 Delivery Device Oxygen Flow Rate Vent Mode Vent Rate Mechanical Rate Pressure Support Vent Sodium 141 Potassium 5.2 H Chloride 107 Carbon Dioxide 31 Anion Gap 4 L BUN 58 H Creatinine 0.6 Creat Clearance w eGFR > 60 Random Glucose 112 H Hemoglobin A1c % Lactic Acid Calcium 7.8 L Phosphorus Magnesium Iron TIBC Iron Saturation Ferritin Total Bilirubin 0.3 AST 80 H ALT 114 H Alkaline Phosphatase 161 H Troponin I Total Protein 5.3 L Albumin 1.3 L Triglycerides Cholesterol Total LDL Cholesterol HDL Cholesterol Serum Folate Free T4 Urine Color Urine Appearance Urine pH Ur Specific [place] Urine Protein Urine Glucose (UA) Urine Ketones Urine Blood Urine Nitrite Urine Bilirubin Urine Urobilinogen Ur Leukocyte Esterase Urine WBC (Auto) Urine RBC (Auto) Ur Epithelial Cells Amorphous Urates Stool Occult Blood Vancomycin Pre-Dose Influenza A (Rapid) Influenza B (Rapid) Blood Type Antibody Screen Crossmatch 11/02/18 11/02/18 11/02/18 05:40 05:40 05:40 WBC RBC Hgb Hct MCV MCH MCHC RDW Plt Count MPV Absolute Neuts (auto) Total Counted Neutrophils % Neutrophils % (Manual) Band Neutrophils % Lymphocytes % Lymphocytes % (Manual) Monocytes % Monocytes % (Manual) Eosinophils % Eosinophils % (Manual) Basophils % Basophils % (Manual) Nucleated RBC % Hypochromia Platelet Estimate Platelet Comment Poikilocytosis Anisocytosis Microcytosis PT with INR INR PTT (Actin FS) Anticoagulation Therapy Puncture Site ABG pH ABG pCO2 at Pt Temp ABG pO2 at Pt Temp ABG HCO3 ABG O2 Sat (Measured) ABG O2 Content ABG Base Excess Frank Test VBG pH POC VBG pCO2 POC VBG pO2 VBG HCO3 VBG O2 Sat (Libra) VBG Base Excess O2 Delivery Device Oxygen Flow Rate Vent Mode Vent Rate Mechanical Rate Pressure Support Vent Sodium 143 Potassium 5.1 Chloride 109 H Carbon Dioxide 29 Anion Gap 5 L BUN 55 H Creatinine 0.6 Creat Clearance w eGFR > 60 Random Glucose 67 L Hemoglobin A1c % Lactic Acid Calcium 7.7 L Phosphorus 3.5 Magnesium 2.7 H Iron 10 L TIBC 129 L Iron Saturation 8 L Ferritin 1417.9 H Total Bilirubin 0.5 AST 77 H ALT 108 H Alkaline Phosphatase 140 H Troponin I Total Protein 5.4 L Albumin 1.3 L Triglycerides 83 Cholesterol 72 Total LDL Cholesterol 43 HDL Cholesterol 15 L Serum Folate 20 H Free T4 0.85 Urine Color Urine Appearance Urine pH Ur Specific [place] Urine Protein Urine Glucose (UA) Urine Ketones Urine Blood Urine Nitrite Urine Bilirubin Urine Urobilinogen Ur Leukocyte Esterase Urine WBC (Auto) Urine RBC (Auto) Ur Epithelial Cells Amorphous Urates Stool Occult Blood Vancomycin Pre-Dose 6.5 L Influenza A (Rapid) Influenza B (Rapid) Blood Type Antibody Screen Crossmatch 11/02/18 11/02/18 11/02/18 05:40 05:40 05:40 WBC 15.4 H RBC 2.90 L Hgb 8.2 L Hct 24.6 L MCV 84.6 MCH 28.2 MCHC 33.4 RDW 17.7 H Plt Count 353 MPV 8.6 Absolute Neuts (auto) Total Counted Neutrophils % Neutrophils % (Manual) Band Neutrophils % Lymphocytes % Lymphocytes % (Manual) Monocytes % Monocytes % (Manual) Eosinophils % Eosinophils % (Manual) Basophils % Basophils % (Manual) Nucleated RBC % Hypochromia Platelet Estimate Platelet Comment Poikilocytosis Anisocytosis Microcytosis PT with INR INR PTT (Actin FS) 30.4 Anticoagulation Therapy Puncture Site ABG pH ABG pCO2 at Pt Temp ABG pO2 at Pt Temp ABG HCO3 ABG O2 Sat (Measured) ABG O2 Content ABG Base Excess Frank Test VBG pH POC VBG pCO2 POC VBG pO2 VBG HCO3 VBG O2 Sat (Libra) VBG Base Excess O2 Delivery Device Oxygen Flow Rate Vent Mode Vent Rate Mechanical Rate Pressure Support Vent Sodium Potassium Chloride Carbon Dioxide Anion Gap BUN Creatinine Creat Clearance w eGFR Random Glucose Hemoglobin A1c % < 5.0 Lactic Acid Calcium Phosphorus Magnesium Iron TIBC Iron Saturation Ferritin Total Bilirubin AST ALT Alkaline Phosphatase Troponin I Total Protein Albumin Triglycerides Cholesterol Total LDL Cholesterol HDL Cholesterol Serum Folate Free T4 Urine Color Urine Appearance Urine pH Ur Specific [place] Urine Protein Urine Glucose (UA) Urine Ketones Urine Blood Urine Nitrite Urine Bilirubin Urine Urobilinogen Ur Leukocyte Esterase Urine WBC (Auto) Urine RBC (Auto) Ur Epithelial Cells Amorphous Urates Stool Occult Blood Vancomycin Pre-Dose Influenza A (Rapid) Influenza B (Rapid) Blood Type Antibody Screen Crossmatch 11/02/18 11/02/18 11/02/18 07:14 07:14 12:00 WBC RBC Hgb Hct MCV MCH MCHC RDW Plt Count MPV Absolute Neuts (auto) Total Counted Neutrophils % Neutrophils % (Manual) Band Neutrophils % Lymphocytes % Lymphocytes % (Manual) Monocytes % Monocytes % (Manual) Eosinophils % Eosinophils % (Manual) Basophils % Basophils % (Manual) Nucleated RBC % Hypochromia Platelet Estimate Platelet Comment Poikilocytosis Anisocytosis Microcytosis PT with INR INR PTT (Actin FS) Anticoagulation Therapy Puncture Site ABG pH ABG pCO2 at Pt Temp ABG pO2 at Pt Temp ABG HCO3 ABG O2 Sat (Measured) ABG O2 Content ABG Base Excess Frank Test VBG pH POC VBG pCO2 POC VBG pO2 VBG HCO3 VBG O2 Sat (Libra) VBG Base Excess O2 Delivery Device Oxygen Flow Rate Vent Mode Vent Rate Mechanical Rate Pressure Support Vent Sodium Potassium Chloride Carbon Dioxide Anion Gap BUN Creatinine Creat Clearance w eGFR Random Glucose Hemoglobin A1c % Lactic Acid Calcium Phosphorus Magnesium Iron TIBC Iron Saturation Ferritin Cancelled Total Bilirubin AST ALT Alkaline Phosphatase Troponin I Total Protein Albumin Triglycerides Cancelled Cholesterol Cancelled Total LDL Cholesterol Cancelled HDL Cholesterol Cancelled Serum Folate Cancelled Free T4 Urine Color Urine Appearance Urine pH Ur Specific [place] Urine Protein Urine Glucose (UA) Urine Ketones Urine Blood Urine Nitrite Urine Bilirubin Urine Urobilinogen Ur Leukocyte Esterase Urine WBC (Auto) Urine RBC (Auto) Ur Epithelial Cells Amorphous Urates Stool Occult Blood Vancomycin Pre-Dose Influenza A (Rapid) Influenza B (Rapid) Blood Type O POSITIVE Antibody Screen Negative Crossmatch 11/02/18 11/03/18 11/03/18 16:00 06:00 06:00 WBC 14.3 H RBC 3.02 L Hgb 8.6 L Hct 25.8 L MCV 85.3 MCH 28.6 MCHC 33.5 RDW 18.9 H Plt Count 363 MPV 8.6 Absolute Neuts (auto) Total Counted Neutrophils % Neutrophils % (Manual) Band Neutrophils % Lymphocytes % Lymphocytes % (Manual) Monocytes % Monocytes % (Manual) Eosinophils % Eosinophils % (Manual) Basophils % Basophils % (Manual) Nucleated RBC % Hypochromia Platelet Estimate Platelet Comment Poikilocytosis Anisocytosis Microcytosis PT with INR INR PTT (Actin FS) Anticoagulation Therapy Puncture Site ABG pH ABG pCO2 at Pt Temp ABG pO2 at Pt Temp ABG HCO3 ABG O2 Sat (Measured) ABG O2 Content ABG Base Excess Frank Test VBG pH POC VBG pCO2 POC VBG pO2 VBG HCO3 VBG O2 Sat (Libra) VBG Base Excess O2 Delivery Device Oxygen Flow Rate Vent Mode Vent Rate Mechanical Rate Pressure Support Vent Sodium 145 Potassium 4.6 Chloride 110 H Carbon Dioxide 29 Anion Gap 6 L BUN 66 H Creatinine 0.7 Creat Clearance w eGFR > 60 Random Glucose 107 H Hemoglobin A1c % Lactic Acid Calcium 8.4 L Phosphorus Magnesium Iron TIBC Iron Saturation Ferritin Total Bilirubin 0.5 AST 75 H ALT 115 H Alkaline Phosphatase 128 H Troponin I Total Protein 5.7 L Albumin 1.3 L Triglycerides Cholesterol Total LDL Cholesterol HDL Cholesterol Serum Folate Free T4 Urine Color Urine Appearance Urine pH Ur Specific [place] Urine Protein Urine Glucose (UA) Urine Ketones Urine Blood Urine Nitrite Urine Bilirubin Urine Urobilinogen Ur Leukocyte Esterase Urine WBC (Auto) Urine RBC (Auto) Ur Epithelial Cells Amorphous Urates Stool Occult Blood Vancomycin Pre-Dose Influenza A (Rapid) Negative Influenza B (Rapid) Negative Blood Type Antibody Screen Crossmatch 11/03/18 11/05/18 11/06/18 06:00 10:35 07:20 WBC RBC Hgb Hct MCV MCH MCHC RDW Plt Count MPV Absolute Neuts (auto) Total Counted Neutrophils % Neutrophils % (Manual) Band Neutrophils % Lymphocytes % Lymphocytes % (Manual) Monocytes % Monocytes % (Manual) Eosinophils % Eosinophils % (Manual) Basophils % Basophils % (Manual) Nucleated RBC % Hypochromia Platelet Estimate Platelet Comment Poikilocytosis Anisocytosis Microcytosis PT with INR INR PTT (Actin FS) Anticoagulation Therapy Puncture Site ABG pH ABG pCO2 at Pt Temp ABG pO2 at Pt Temp ABG HCO3 ABG O2 Sat (Measured) ABG O2 Content ABG Base Excess Frank Test VBG pH POC VBG pCO2 POC VBG pO2 VBG HCO3 VBG O2 Sat (Libra) VBG Base Excess O2 Delivery Device Oxygen Flow Rate Vent Mode Vent Rate Mechanical Rate Pressure Support Vent Sodium 146 H 146 H Potassium 3.0 L 3.6 Chloride 112 H 112 H Carbon Dioxide 28 30 Anion Gap 6 L 5 L BUN 35 H 26 H Creatinine 0.5 L 0.4 L Creat Clearance w eGFR 162.54 210.28 Random Glucose 139 H 137 H Hemoglobin A1c % Lactic Acid 0.9 Calcium 7.7 L 7.6 L Phosphorus 1.8 L Magnesium Iron TIBC Iron Saturation Ferritin Total Bilirubin 0.4 AST 56 H ALT 92 H Alkaline Phosphatase 137 H Troponin I Total Protein 6.1 L Albumin 1.3 L Triglycerides Cholesterol Total LDL Cholesterol HDL Cholesterol Serum Folate Free T4 Urine Color Urine Appearance Urine pH Ur Specific [place] Urine Protein Urine Glucose (UA) Urine Ketones Urine Blood Urine Nitrite Urine Bilirubin Urine Urobilinogen Ur Leukocyte Esterase Urine WBC (Auto) Urine RBC (Auto) Ur Epithelial Cells Amorphous Urates Stool Occult Blood Vancomycin Pre-Dose Influenza A (Rapid) Influenza B (Rapid) Blood Type Antibody Screen Crossmatch 11/06/18 11/09/18 11/09/18 07:20 06:05 06:05 WBC 11.9 H 12.8 H RBC 3.20 L 2.87 L Hgb 9.0 L 8.0 L Hct 27.3 L 24.7 L MCV 85.5 85.9 MCH 28.2 27.9 MCHC 33.0 32.5 RDW 19.2 H 20.2 H Plt Count 315 255 MPV 8.9 10.1 D Absolute Neuts (auto) 10.7 H Total Counted Neutrophils % 90.1 H Neutrophils % (Manual) Band Neutrophils % Lymphocytes % 4.4 L D Lymphocytes % (Manual) Monocytes % 2.3 L Monocytes % (Manual) Eosinophils % 3.0 D Eosinophils % (Manual) Basophils % 0.2 Basophils % (Manual) Nucleated RBC % 0 Hypochromia Platelet Estimate Platelet Comment No clumping noted Poikilocytosis Anisocytosis Microcytosis PT with INR INR PTT (Actin FS) Anticoagulation Therapy Puncture Site ABG pH ABG pCO2 at Pt Temp ABG pO2 at Pt Temp ABG HCO3 ABG O2 Sat (Measured) ABG O2 Content ABG Base Excess Frank Test VBG pH POC VBG pCO2 POC VBG pO2 VBG HCO3 VBG O2 Sat (Libra) VBG Base Excess O2 Delivery Device Oxygen Flow Rate Vent Mode Vent Rate Mechanical Rate Pressure Support Vent Sodium 144 Potassium 3.4 L Chloride 110 H Carbon Dioxide 30 Anion Gap 5 L BUN 23 H Creatinine 0.4 L Creat Clearance w eGFR 210.28 Random Glucose 97 Hemoglobin A1c % Lactic Acid Calcium 7.5 L Phosphorus Magnesium Iron TIBC Iron Saturation Ferritin Total Bilirubin 0.3 AST 44 H ALT 70 H Alkaline Phosphatase 116 Troponin I Total Protein 5.5 L Albumin 1.3 L Triglycerides Cholesterol Total LDL Cholesterol HDL Cholesterol Serum Folate Free T4 Urine Color Urine Appearance Urine pH Ur Specific [place] Urine Protein Urine Glucose (UA) Urine Ketones Urine Blood Urine Nitrite Urine Bilirubin Urine Urobilinogen Ur Leukocyte Esterase Urine WBC (Auto) Urine RBC (Auto) Ur Epithelial Cells Amorphous Urates Stool Occult Blood Vancomycin Pre-Dose Influenza A (Rapid) Influenza B (Rapid) Blood Type Antibody Screen Crossmatch 11/10/18 11/10/18 11/11/18 06:10 06:10 08:25 WBC 13.4 H 10.6 H RBC 2.81 L 2.49 L Hgb 7.9 L 7.1 L Hct 23.9 L 21.3 L MCV 84.8 85.7 MCH 27.9 28.6 MCHC 32.9 33.4 RDW 20.0 H 20.1 H Plt Count 305 259 MPV 9.1 9.9 Absolute Neuts (auto) Total Counted Neutrophils % Neutrophils % (Manual) Band Neutrophils % Lymphocytes % Lymphocytes % (Manual) Monocytes % Monocytes % (Manual) Eosinophils % Eosinophils % (Manual) Basophils % Basophils % (Manual) Nucleated RBC % Hypochromia Platelet Estimate Platelet Comment Poikilocytosis Anisocytosis Microcytosis PT with INR INR PTT (Actin FS) Anticoagulation Therapy Puncture Site ABG pH ABG pCO2 at Pt Temp ABG pO2 at Pt Temp ABG HCO3 ABG O2 Sat (Measured) ABG O2 Content ABG Base Excess Frank Test VBG pH POC VBG pCO2 POC VBG pO2 VBG HCO3 VBG O2 Sat (Libra) VBG Base Excess O2 Delivery Device Oxygen Flow Rate Vent Mode Vent Rate Mechanical Rate Pressure Support Vent Sodium 140 Potassium 4.2 Chloride 109 H Carbon Dioxide 31 Anion Gap 0 L BUN 22 H Creatinine 0.3 L Creat Clearance w eGFR 293.08 Random Glucose 92 Hemoglobin A1c % Lactic Acid Calcium 7.4 L Phosphorus Magnesium Iron TIBC Iron Saturation Ferritin Total Bilirubin 0.5 AST 52 H ALT 80 H Alkaline Phosphatase 119 H Troponin I Total Protein 5.5 L Albumin 1.4 L Triglycerides Cholesterol Total LDL Cholesterol HDL Cholesterol Serum Folate Free T4 Urine Color Urine Appearance Urine pH Ur Specific [place] Urine Protein Urine Glucose (UA) Urine Ketones Urine Blood Urine Nitrite Urine Bilirubin Urine Urobilinogen Ur Leukocyte Esterase Urine WBC (Auto) Urine RBC (Auto) Ur Epithelial Cells Amorphous Urates Stool Occult Blood Vancomycin Pre-Dose Influenza A (Rapid) Influenza B (Rapid) Blood Type Antibody Screen Crossmatch 11/11/18 11/12/18 11/12/18 08:25 06:35 06:35 WBC 9.2 RBC 2.69 L Hgb 7.7 L Hct 23.1 L MCV 85.8 MCH 28.6 MCHC 33.3 RDW 20.1 H Plt Count 282 MPV 9.4 Absolute Neuts (auto) Total Counted Neutrophils % Neutrophils % (Manual) Band Neutrophils % Lymphocytes % Lymphocytes % (Manual) Monocytes % Monocytes % (Manual) Eosinophils % Eosinophils % (Manual) Basophils % Basophils % (Manual) Nucleated RBC % Hypochromia Platelet Estimate Platelet Comment Poikilocytosis Anisocytosis Microcytosis PT with INR INR PTT (Actin FS) Anticoagulation Therapy Puncture Site ABG pH ABG pCO2 at Pt Temp ABG pO2 at Pt Temp ABG HCO3 ABG O2 Sat (Measured) ABG O2 Content ABG Base Excess Frank Test VBG pH POC VBG pCO2 POC VBG pO2 VBG HCO3 VBG O2 Sat (Libra) VBG Base Excess O2 Delivery Device Oxygen Flow Rate Vent Mode Vent Rate Mechanical Rate Pressure Support Vent Sodium 143 140 Potassium 4.0 3.8 Chloride 109 H 108 H Carbon Dioxide 28 28 Anion Gap 5 L 5 L BUN 24 H 25 H Creatinine 0.3 L 0.3 L Creat Clearance w eGFR 293.08 293.08 Random Glucose 96 98 Hemoglobin A1c % Lactic Acid Calcium 7.2 L 7.3 L Phosphorus Magnesium Iron TIBC Iron Saturation Ferritin Total Bilirubin 0.3 0.2 AST 33 30 ALT 58 58 Alkaline Phosphatase 107 115 Troponin I Total Protein 5.1 L 5.2 L Albumin 1.3 L 1.4 L Triglycerides Cholesterol Total LDL Cholesterol HDL Cholesterol Serum Folate Free T4 Urine Color Urine Appearance Urine pH Ur Specific [place] Urine Protein Urine Glucose (UA) Urine Ketones Urine Blood Urine Nitrite Urine Bilirubin Urine Urobilinogen Ur Leukocyte Esterase Urine WBC (Auto) Urine RBC (Auto) Ur Epithelial Cells Amorphous Urates Stool Occult Blood Vancomycin Pre-Dose Influenza A (Rapid) Influenza B (Rapid) Blood Type Antibody Screen Crossmatch Active Medications Generic Name Dose Route Start Last Admin Trade Name Freq PRN Reason Stop Dose Admin Acetaminophen 650 mg 11/06/18 14:38 Tylenol Oral Solution - PO Q4H PRN FEVER Albuterol Sulfate 1 amp 11/02/18 14:59 Ventolin 0.083% Nebulizer Soln - NEB Q6H PRN SHORT OF BREATH/WHEEZING Albuterol/Ipratropium 1 amp 11/01/18 16:00 11/12/18 08:23 Duoneb - NEB 1 amp RQID FLORY Administration Amino Acids 30 ml 11/09/18 17:30 11/11/18 17:09 Prosource No Carb Liquid Pkt GT 30 ml BID@0800,1730 FLORY Administration Ascorbic Acid 250 mg 11/09/18 22:00 11/11/18 22:50 Vitamin C Oral Solution - GT 250 mg BID FL[facility] Administration Atorvastatin Calcium 40 mg 11/02/18 22:00 11/11/18 22:15 Lipitor - GT 40 mg HS FL[facility] Administration Pantoprazole Sodium 80 mg/ 100 mls @ 10 mls/hr 11/06/18 11:00 11/12/18 06:02 Sodium Chloride IVPB Not Given Q10H [facility] 8 MG/HR Piperacillin Sod/Tazobactam 100 mls @ 200 mls/hr 11/10/18 10:00 11/12/18 02: 29 Sod 4.5 gm/ Dextrose IVPB 200 mls/hr Q8H-IV [facility] Administration Protocol Memantine 10 mg 11/02/18 22:00 11/11/18 22:15 Namenda - GT 10 mg BID FLORY Administration Metoprolol Tartrate 12.5 mg 11/02/18 22:00 11/11/18 22:16 Lopressor - GT Not Given BID FLORY Zinc Sulfate 220 mg 11/10/18 10:00 11/11/18 09:31 Orazinc - GT 220 mg DAILY FLORY Administration Microbiology 11/01/18 04:55 Blood - Peripheral Venous Blood Culture - Preliminary Anaero Non Spore Forming Gpbac 11/02/18 12:00 Blood - Peripheral Venous Blood Culture - Final NO GROWTH AFTER 5 DAYS INCUBATION 11/02/18 11:40 Blood - Peripheral Venous Blood Culture - Final NO GROWTH AFTER 5 DAYS INCUBATION 11/02/18 16:00 Sputum - Endotrachea Suction/Ventilator Gram Stain - Final 11/02/18 16:00 Sputum - Endotrachea Suction/Ventilator Sputum Culture - Final Pseudomonas Aeruginosa Serratia Marcescens Proteus Mirabilis 11/01/18 04:55 Blood - Peripheral Venous Blood Culture - Final NO GROWTH AFTER 5 DAYS INCUBATION 11/02/18 16:00 Urine For Antigen Detection Legionella Antigen - Final 11/02/18 16:00 Urine For Antigen Detection Streptococcus pneumoniae Antigen (M - Final 11/02/18 11:20 Urine - Urine Krishnamurthy Urine Culture - Final NO GROWTH OBTAINED 11/01/18 07:54 Urine - Urine Krishnamurthy Urine Culture - Final NO GROWTH OBTAINED Condition: Stable - Instructions Diet, Activity, Other Instructions: Follow up with PMD continue with medication regimen as ordered return to ER if develop fever, AMS, chest pain, respiratory distress Referrals: Leroy Schafer MD [Primary Care Provider] - Disposition: [facility] - Home Medications Comprehensive Discharge Medication List: Ambulatory Orders Acetaminophen [Tylenol -] 650 mg GT Q6H PRN 11/01/18 Albuterol 0.083% Nebulizer Lexus [Ventolin 0.083% Nebulizer Soln -] 1 neb NEB Q6H 11/01/18 Amiodarone HCl 200 mg GT DAILY 11/01/18 Apixaban [Eliquis] 5 mg GT BID 11/01/18 Aspirin 81 mg GT DAILY 11/01/18 Atorvastatin Ca [Lipitor] 40 mg GT HS 11/01/18 Butenafine HCl [Lotrimin Ultra] 30 gm TP BID 11/01/18 Butenafine HCl [Lotrimin Ultra] 30 gm TP BID 11/01/18 Clonazepam [Klonopin] 1 mg GT Q6H 11/01/18 Donepezil HCl [Aricept -] 10 mg GT HS 11/01/18 LORazepam [Ativan] 1 mg GT HS 11/01/18 Lansoprazole [Prevacid] 30 mg GT DAILY 11/01/18 Memantine HCl [Namenda -] 10 mg GT BID 11/01/18 Metoprolol Tartrate [Lopressor -] 12.5 mg GT Q12H 11/01/18 Peg 400/Hypromellose/Glycerin [Artificial Tears Drops] 15 ml OP BID 11/01/18
[2018-11-12] MEDS: MEMANTINE HCL 10 MG TABLET (FP) GT SCH (11:02)
[2018-11-12] MEDS: METOPROLOL TARTRATE 25 MG TABLET (FP) GT SCH (11:02)
[2018-11-12] MEDS: ZINC SULFATE 220 MG CAPSULE (FP) GT SCH (11:02)
[2018-11-12 18:06] VITALS: BP 127/69; PULSE 85; TEMP 98.1
== END 2018-11-12 12:08 | DRG 870 ==
LOC: JER 03:53 → JERBED 09:39 → J5S 20:21
PROVIDERS: ADMIT Student in an Organized Health Care Education/Training Program; ATTEND Student in an Organized Health Care Education/Training Program
PROC: 5A1955Z Respiratory Ventilation, Greater than 96 Consecutive Hours (ICD-10-PCS; principal; 2018-11-01)
PROC: 30233N1 Transfusion of Nonautologous Red Blood Cells into Peripheral Vein, Percutaneous Approach (ICD-10-PCS; 2018-11-01)
DX: A41.9 Sepsis, unspecified organism (principal); J18.9 Pneumonia, unspecified organism; J96.21 Acute and chronic respiratory failure with hypoxia; J96.22 Acute and chronic respiratory failure with hypercapnia; K92.2 Gastrointestinal hemorrhage, unspecified; R64 Cachexia; G30.9 Alzheimer's disease, unspecified; F02.80 Dementia in other diseases classified elsewhere, unspecified severity, without behavioral disturbance, psychotic disturbance, mood disturbance, and anxiety; K21.9 Gastro-esophageal reflux disease without esophagitis; F41.9 Anxiety disorder, unspecified; I95.9 Hypotension, unspecified; D72.829 Elevated white blood cell count, unspecified; R50.9 Fever, unspecified; Z66 Do not resuscitate; R94.5 Abnormal results of liver function studies; D64.9 Anemia, unspecified; R62.7 Adult failure to thrive; Z68.22 Body mass index [BMI] 22.0-22.9, adult; I48.0 Paroxysmal atrial fibrillation; L89.892 Pressure ulcer of other site, stage 2; L89.122 Pressure ulcer of left upper back, stage 2; L89.012 Pressure ulcer of right elbow, stage 2; Z93.0 Tracheostomy status; Z93.3 Colostomy status
CPT/HCPCS: 36415; 36430; 36600; 71045-TC-FY; 76705-TC; 80048; 80053; 80061; 81003; 81015; 82272; 82728; 82746; 82803; 83036; 83540; 83550; 83605; 83721; 83735; 84100; 84439; 84484; 85025; 85027; 85610; 85730; 86850; 86900; 86901; 86922; 87040; 87070; 87086; 87186; 87205; 87804; 87899; 93005; 93010; 94002; 94640; 99285-25; G0480; J0131; J1756; J7030; P9038; P9058